=== PATIENT | male | born 1990 | race Two or more races ===

== ENCOUNTER 2018-06-28 11:24 | Emergency (ER) | payer OTHER ==
[~2018-06-28] VITALS: Ht 167.6 cm; Wt 72.7 kg
[2018-06-28] MEDS ORDERED: CEPH500 PO (12:05)
[2018-06-28] MEDS ORDERED: HALO1 PO (12:05)
[2018-06-28 13:44] VITALS: BP 118/70
== END 2018-06-28 13:46 | disposition home or self-care (01) ==
LOC: EMS 11:25
DX: F20.9 Schizophrenia, unspecified (principal); F31.9 Bipolar disorder, unspecified; F41.9 Anxiety disorder, unspecified; F15.90 Other stimulant use, unspecified, uncomplicated; F17.210 Nicotine dependence, cigarettes, uncomplicated; Z76.0 Encounter for issue of repeat prescription

== ENCOUNTER 2018-08-06 13:49 | Inpatient (IN) | payer MEDICAID ==
[~2018-08-06] VITALS: Ht 167.6 cm; Wt 66.7 kg
[~2018-08-06 13:49] MED LIST: CEPH500 PO; HALO1 PO
[2018-08-06 14:16] VITALS: BP 121/63
[2018-08-06] MEDS ORDERED: ZOLPIDEM TARTRATE 10 MG TABLET PO PRN (14:45)
[2018-08-06] MEDS ORDERED: OLAN10TA3 PO (15:06)
[2018-08-06] MEDS ORDERED: HALO5TAB2 PO (15:06)
[2018-08-06 17:02] VITALS: BP 113/73
[2018-08-06] MEDS ORDERED: ACETAMINOPHEN 325 MG TABLET PO PRN (21:15)
[2018-08-06] MEDS ORDERED: MAGNESIUM HYDROXIDE SUSPENSION 30 ML UDCUP PO PRN (21:15)
[2018-08-06] MEDS ORDERED: CloNIDine HCL 0.1 MG TABLET PO PRN (21:15)
[2018-08-06] MEDS ORDERED: PETROLATUM,WHITE 71 GM JELLY TP PRN (21:15)
[2018-08-06] MEDS ORDERED: NICOTINE 14 MG/24 HOUR PATCH TD PRN (21:15)
[2018-08-06] MEDS ORDERED: ONDANSETRON HCL 4 MG TABLET PO PRN (21:15)
[2018-08-06] MEDS ORDERED: LOPERAMIDE HCL 2 MG CAPSULE PO PRN (21:15)
[2018-08-06] MEDS ORDERED: IBUPROFEN 400 MG TABLET PO PRN (21:15)
[2018-08-06] MEDS ORDERED: MAG HYDROX/AL HYDROX/SIMETH ES 30 ML SUSPENSION UDCUP PO PRN (21:15)
[2018-08-06] MEDS ORDERED: GuaiFENesin/D-METHORPHAN [SUGAR-FREE] 200-20MG/10 ML SYRUP UDCUP PO PRN (21:15)
[2018-08-06] MEDS ORDERED: DOCUSATE SODIUM 100 MG CAPSULE PO PRN (21:15)
[2018-08-06] MEDS ORDERED: ALBUTEROL SULFATE HFA 90 MCG/PUFF 8 GM INHALER IH PRN (21:15)
[2018-08-07 06:54] VITALS: BP 114/74
[2018-08-07 07:22] LABS: BASOPHILS % (AUTO) 0.4 % (0.0-2.0); EOSINOPHILS % (AUTO) 2.1 % (1.0-6.0); HEMATOCRIT 37.9 % (41-53); HEMOGLOBIN 13.4 g/dL (13.5-17.5); LYMPHOCYTES # (AUTO) 1.5 K/uL (1.0-4.8); LYMPHOCYTES % (AUTO) 22.4 % (22.0-44.0); MEAN CORPUSCULAR HEMOGLOBIN 31.1 pg (26.0-34.0); MEAN CORPUSCULAR HGB CONC 35.3 G/dL (31.0-37.0); MEAN CORPUSCULAR VOLUME 88 fL (80-100); MONOCYTES # (AUTO) 0.6 K/uL (0.1-1.0); MONOCYTES % (AUTO) 8.2 % (2.0-9.0); NEUTROPHILS # (AUTO) 4.6 K/uL (1.8-7.7); NEUTROPHILS % (AUTO) 66.9 % (40.0-70.0); PLATELET COUNT (AUTO) 224 K/uL (150-450); RED BLOOD CELL COUNT(AUTO) 4.29 MIL/uL (4.50-5.90); RED CELL DISTRIBUTION WIDTH 13.9 % (11.5-14.5)
[2018-08-07 07:54] LABS: HEMOGLOBIN A1C 5.2 % (4.5-6.2)
[2018-08-07 08:06] LABS: ALANINE AMINOTRANSFERASE 21 U/L (12-78); ALBUMIN 3.5 g/dL (3.4-5.0); ALKALINE PHOSPHATASE 84 U/L (46-116); ANION GAP 5 mmol/L (8-16); ASPARTATE AMINOTRANSFERASE 14 U/L (15-37); CALCIUM, TOTAL 8.6 mg/dL (8.8-10.5); CARBON DIOXIDE 30 mmol/L (22-29); CHLORIDE 104 mmol/L (98-107); CHOL/HDL RATIO 2.9 (4.2-7.3); CHOLESTEROL 145 mg/dL (131-200); CREATININE 0.84 mg/dL (0.60-1.30); FREE T4 (FREE THYROXINE) 0.88 ng/dL (0.76-1.46); GLOMERULAR FILTR. RATE CALC > 60 mL/min (>60); GLUCOSE,RANDOM 92 mg/dL (70-110); HDL CHOLESTEROL 50 mg/dL (40-60); LDL CHOL (CALC.) 78 mg/dL (0-130); POTASSIUM 4.8 mmol/L (3.5-5.1); SODIUM SERUM 139 mmol/L (136-145); THYROID STIMULATING HORMONE 1.18 uIU/mL (0.36-3.74); TOTAL PROTEIN, SERUM 6.7 g/dL (6.4-8.2); TRIGLYCERIDES 87 mg/dL (15-150); UREA NITROGEN, BLOOD 16 mg/dL (7-18)
[2018-08-07 08:23] VITALS: BP 113/65
[2018-08-07] MEDS: LORazepam 2 MG TABLET PO PRN (09:00)
[2018-08-07] MEDS: HALOPERIDOL 5 MG TABLET PO PRN (09:00)
[2018-08-07] MEDS: BACITRACIN 28.4 GM OINTMENT TP SCH ×2 (09:22→17:14)
[2018-08-07 09:35] LABS: AMPHET/METH SCREEN,URINE POSITIVE (NEGATIVE); BARBITURATE SCREEN, URINE NEGATIVE (NEGATIVE); BENZODIAZEPINES SCREEN,URINE NEGATIVE (NEGATIVE); CANNABINOID SCREEN,URINE POSITIVE (NEGATIVE); COCAINE SCREEN,URINE NEGATIVE (NEGATIVE); METHADONE SCREEN, URINE NEGATIVE (NEGATIVE); OPIATE SCREEN,URINE NEGATIVE (NEGATIVE)
[2018-08-07 09:37] LABS: PHENCYCLIDINE SCREEN,URINE NEGATIVE (NEGATIVE)
[2018-08-07 09:38] LABS: BILIRUBIN,URINE NEGATIVE (NEGATIVE); GLUCOSE, URINE (UA) NEGATIVE (NEGATIVE); KETONES,URINE NEGATIVE (NEGATIVE); LEUKOCYTE ESTERASE ,URINE NEGATIVE (NEGATIVE); NITRATE,URINE NEGATIVE (NEGATIVE); OCCULT BLOOD,URINE NEGATIVE (NEGATIVE); PROTEIN,URINE NEGATIVE (NEGATIVE)
[2018-08-07 09:58] LABS: APPEARANCE,URINE HAZY (CLEAR)
[2018-08-07] MEDS ORDERED: HALO10 PO (11:12)
[2018-08-07] MEDS: HALOPERIDOL 5 MG TABLET PO SCH (11:41)
[2018-08-07 16:06] VITALS: BP 113/68
[2018-08-07] MEDS: HALOPERIDOL 10 MG TABLET PO SCH (21:00)
[2018-08-08 02:00] VITALS: BP 118/74
[2018-08-08] MEDS: BACITRACIN 28.4 GM OINTMENT TP SCH ×2 (08:43→16:42)
[2018-08-08] MEDS: HALOPERIDOL 5 MG TABLET PO SCH (08:43)
[2018-08-08 08:50] VITALS: BP 126/74
[2018-08-08 16:01] VITALS: BP 128/71
[2018-08-08] MEDS: HALOPERIDOL 5 MG TABLET PO PRN (17:02)
[2018-08-08] MEDS: LORazepam 2 MG TABLET PO PRN (17:02)
[2018-08-08] MEDS: HALOPERIDOL 10 MG TABLET PO SCH (20:22)
[2018-08-09 00:10] VITALS: BP 100/60
[2018-08-09 08:25] VITALS: BP 111/67
[2018-08-09] MEDS: BACITRACIN 28.4 GM OINTMENT TP SCH ×2 (08:28→16:06)
[2018-08-09] MEDS: HALOPERIDOL 5 MG TABLET PO SCH (08:29)
[2018-08-09] MEDS: SERTRALINE HCL 50 MG TABLET PO SCH (14:21)
[2018-08-09 16:05] VITALS: BP 100/68
[2018-08-09] MEDS: HALOPERIDOL 10 MG TABLET PO SCH (20:17)
[2018-08-10 02:18] VITALS: BP 106/74
[2018-08-10] MEDS: SERTRALINE HCL 50 MG TABLET PO SCH (08:17)
[2018-08-10] MEDS: HALOPERIDOL 5 MG TABLET PO SCH (08:17)
[2018-08-10] MEDS: BACITRACIN 28.4 GM OINTMENT TP SCH (08:20)
[2018-08-10 08:26] VITALS: BP 110/52
[2018-08-10] MEDS ORDERED: HALO5TAB2 PO (11:55)
[2018-08-10] MEDS ORDERED: HALO10 PO (11:55)
[2018-08-10] MEDS ORDERED: SERT50TA12 PO (11:55)
== END 2018-08-10 12:45 | disposition home or self-care (01) | DRG 750 ==
LOC: B2S 14:45
DX: F20.0 Paranoid schizophrenia (principal); D64.9 Anemia, unspecified; F17.200 Nicotine dependence, unspecified, uncomplicated; F19.10 Other psychoactive substance abuse, uncomplicated; F15.10 Other stimulant abuse, uncomplicated; F12.10 Cannabis abuse, uncomplicated; X78.9XXA Intentional self-harm by unspecified sharp object, initial encounter; G47.00 Insomnia, unspecified; Z91.5 Personal history of self-harm; Z71.6 Tobacco abuse counseling; Z79.899 Other long term (current) drug therapy; Z71.51 Drug abuse counseling and surveillance of drug abuser; Y93.89 Activity, other specified; Y92.89 Other specified places as the place of occurrence of the external cause; Y99.8 Other external cause status
CPT/HCPCS: 80307; 83036; 84439; 84443

== ENCOUNTER 2018-09-27 20:56 | Inpatient (IN) | payer MEDICAID ==
[~2018-09-27] VITALS: Ht 170.2 cm; Wt 67.1 kg
[~2018-09-27 20:56] MED LIST changes: -CEPH500 PO; -HALO1 PO; +OLAN10TA3 PO; +SERT50TA12 PO
[2018-09-28] MEDS ORDERED: HALOPERIDOL 5 MG TABLET PO PRN
[2018-09-28 01:47] VITALS: BP 135/85
[2018-09-28] MEDS ORDERED: ONDANSETRON HCL 4 MG TABLET PO PRN (06:45)
[2018-09-28] MEDS ORDERED: LOPERAMIDE HCL 2 MG CAPSULE PO PRN (06:45)
[2018-09-28] MEDS ORDERED: ALBUTEROL SULFATE HFA 90 MCG/PUFF 8 GM INHALER IH PRN (06:45)
[2018-09-28] MEDS ORDERED: PETROLATUM,WHITE 71 GM JELLY TP PRN (06:45)
[2018-09-28] MEDS ORDERED: GuaiFENesin/D-METHORPHAN [SUGAR-FREE] 200-20MG/10 ML SYRUP UDCUP PO PRN (06:45)
[2018-09-28] MEDS ORDERED: MAG HYDROX/AL HYDROX/SIMETH ES 30 ML SUSPENSION UDCUP PO PRN (06:45)
[2018-09-28] MEDS ORDERED: CloNIDine HCL 0.1 MG TABLET PO PRN (06:45)
[2018-09-28] MEDS ORDERED: NICOTINE 14 MG/24 HOUR PATCH TD PRN (06:45)
[2018-09-28] MEDS ORDERED: MAGNESIUM HYDROXIDE SUSPENSION 30 ML UDCUP PO PRN (06:45)
[2018-09-28] MEDS ORDERED: DOCUSATE SODIUM 100 MG CAPSULE PO PRN (06:45)
[2018-09-28] MEDS ORDERED: ACETAMINOPHEN 325 MG TABLET PO PRN (06:45)
[2018-09-28] MEDS ORDERED: IBUPROFEN 400 MG TABLET PO PRN (06:45)
[2018-09-28 07:27] LABS: BASOPHILS % (AUTO) 0.6 % (0.0-2.0); EOSINOPHILS % (AUTO) 1.8 % (1.0-6.0); HEMATOCRIT 39.5 % (41-53); HEMOGLOBIN 13.9 g/dL (13.5-17.5); LYMPHOCYTES # (AUTO) 2.4 K/uL (1.0-4.8); LYMPHOCYTES % (AUTO) 24.8 % (22.0-44.0); MEAN CORPUSCULAR HEMOGLOBIN 30.9 pg (26.0-34.0); MEAN CORPUSCULAR HGB CONC 35.1 G/dL (31.0-37.0); MEAN CORPUSCULAR VOLUME 88 fL (80-100); MONOCYTES # (AUTO) 1.3 K/uL (0.1-1.0); MONOCYTES % (AUTO) 13.4 % (2.0-9.0); NEUTROPHILS # (AUTO) 5.7 K/uL (1.8-7.7); NEUTROPHILS % (AUTO) 59.4 % (40.0-70.0); PLATELET COUNT (AUTO) 294 K/uL (150-450); RED BLOOD CELL COUNT(AUTO) 4.49 MIL/uL (4.50-5.90); RED CELL DISTRIBUTION WIDTH 13.9 % (11.5-14.5)
[2018-09-28 08:04] VITALS: BP 105/59
[2018-09-28 08:14] LABS: HEMOGLOBIN A1C 5.3 % (4.5-6.2)
[2018-09-28 08:15] LABS: ALANINE AMINOTRANSFERASE 31 U/L (12-78); ALBUMIN 3.8 g/dL (3.4-5.0); ALKALINE PHOSPHATASE 97 U/L (46-116); ANION GAP 8 mmol/L (8-16); ASPARTATE AMINOTRANSFERASE 21 U/L (15-37); CARBON DIOXIDE 30 mmol/L (22-29); CHLORIDE 102 mmol/L (98-107); CHOL/HDL RATIO 2.7 (4.2-7.3); CHOLESTEROL 172 mg/dL (131-200); CREATININE 1.05 mg/dL (0.60-1.30); FREE T4 (FREE THYROXINE) 1.12 ng/dL (0.76-1.46); GLOMERULAR FILTR. RATE CALC > 60 mL/min (>60); GLUCOSE,RANDOM 69 mg/dL (70-110); HDL CHOLESTEROL 64 mg/dL (40-60); LDL CHOL (CALC.) 97 mg/dL (0-130); POTASSIUM 3.9 mmol/L (3.5-5.1); SODIUM SERUM 140 mmol/L (136-145); THYROID STIMULATING HORMONE 5.28 uIU/mL (0.36-3.74); TOTAL PROTEIN, SERUM 7.5 g/dL (6.4-8.2); TRIGLYCERIDES 56 mg/dL (15-150); UREA NITROGEN, BLOOD 22 mg/dL (7-18)
[2018-09-28 08:25] LABS: BILIRUBIN,TOTAL 1.2 mg/dL (0.1-1.0)
[2018-09-28] MEDS: SERTRALINE HCL 50 MG TABLET PO SCH (12:26)
[2018-09-28] MEDS: LORazepam 2 MG TABLET PO PRN ×2 (12:26→16:56)
[2018-09-28] MEDS: OLANZapine 10 MG TABLET PO SCH ×2 (12:26→20:36)
[2018-09-28 16:11] VITALS: BP 116/68
[2018-09-28] MEDS: ZOLPIDEM TARTRATE 10 MG TABLET PO PRN (20:36)
[2018-09-29 00:15] VITALS: BP 112/82
[2018-09-29 08:08] VITALS: BP 105/57
[2018-09-29 08:31] LABS: BASOPHILS % (AUTO) 0.8 % (0.0-2.0); EOSINOPHILS % (AUTO) 2.6 % (1.0-6.0); HEMATOCRIT 37.6 % (41-53); HEMOGLOBIN 12.8 g/dL (13.5-17.5); LYMPHOCYTES # (AUTO) 1.7 K/uL (1.0-4.8); LYMPHOCYTES % (AUTO) 25.4 % (22.0-44.0); MEAN CORPUSCULAR HEMOGLOBIN 30.6 pg (26.0-34.0); MEAN CORPUSCULAR HGB CONC 34.1 G/dL (31.0-37.0); MEAN CORPUSCULAR VOLUME 90 fL (80-100); MONOCYTES # (AUTO) 0.6 K/uL (0.1-1.0); MONOCYTES % (AUTO) 9.2 % (2.0-9.0); NEUTROPHILS # (AUTO) 4.2 K/uL (1.8-7.7); PLATELET COUNT (AUTO) 229 K/uL (150-450); RED BLOOD CELL COUNT(AUTO) 4.19 MIL/uL (4.50-5.90); RED CELL DISTRIBUTION WIDTH 13.7 % (11.5-14.5)
[2018-09-29] MEDS: SERTRALINE HCL 50 MG TABLET PO SCH (08:33)
[2018-09-29] MEDS: OLANZapine 10 MG TABLET PO SCH ×2 (08:33→20:37)
[2018-09-29 08:52] LABS: ALANINE AMINOTRANSFERASE 28 U/L (12-78); ALBUMIN 3.3 g/dL (3.4-5.0); ALKALINE PHOSPHATASE 75 U/L (46-116); ANION GAP 7 mmol/L (8-16); ASPARTATE AMINOTRANSFERASE 14 U/L (15-37); BILIRUBIN,TOTAL 0.5 mg/dL (0.1-1.0); CALCIUM, TOTAL 8.8 mg/dL (8.8-10.5); CARBON DIOXIDE 29 mmol/L (22-29); CHLORIDE 107 mmol/L (98-107); CHOL/HDL RATIO 3.1 (4.2-7.3); CHOLESTEROL 154 mg/dL (131-200); CREATININE 0.83 mg/dL (0.60-1.30); GLOMERULAR FILTR. RATE CALC > 60 mL/min (>60); GLUCOSE,RANDOM 82 mg/dL (70-110); HDL CHOLESTEROL 50 mg/dL (40-60); LDL CHOL (CALC.) 91 mg/dL (0-130); POTASSIUM 4.5 mmol/L (3.5-5.1); SODIUM SERUM 143 mmol/L (136-145); THYROID STIMULATING HORMONE 1.98 uIU/mL (0.36-3.74); TOTAL PROTEIN, SERUM 6.7 g/dL (6.4-8.2); TRIGLYCERIDES 64 mg/dL (15-150); UREA NITROGEN, BLOOD 20 mg/dL (7-18)
[2018-09-29 16:07] VITALS: BP 109/62
[2018-09-29] MEDS: LORazepam 2 MG TABLET PO PRN (16:27)
[2018-09-29 16:38] LABS: HEMOGLOBIN A1C 5.3 % (4.5-6.2)
[2018-09-29] MEDS: ZOLPIDEM TARTRATE 10 MG TABLET PO PRN (20:38)
[2018-09-30 06:55] VITALS: BP 116/72
[2018-09-30 08:46] VITALS: BP 108/61
[2018-09-30] MEDS: SERTRALINE HCL 50 MG TABLET PO SCH (09:53)
[2018-09-30] MEDS: OLANZapine 10 MG TABLET PO SCH ×2 (09:53→20:30)
[2018-09-30 16:10] VITALS: BP 105/68
[2018-09-30] MEDS: LORazepam 2 MG TABLET PO PRN (16:37)
[2018-10-01] MEDS: LORazepam 2 MG TABLET PO PRN ×2 (00:05→18:00)
[2018-10-01] MEDS: ZOLPIDEM TARTRATE 10 MG TABLET PO PRN (00:05)
[2018-10-01 00:06] VITALS: BP 108/65
[2018-10-01 08:29] VITALS: BP 101/63
[2018-10-01] MEDS: SERTRALINE HCL 50 MG TABLET PO SCH (09:14)
[2018-10-01] MEDS: OLANZapine 10 MG TABLET PO SCH ×2 (09:14→20:15)
[2018-10-01 16:00] VITALS: BP 108/66
[2018-10-02 03:43] VITALS: BP 112/76
[2018-10-02] MEDS: OLANZapine 10 MG TABLET PO SCH ×2 (08:18→20:08)
[2018-10-02] MEDS: SERTRALINE HCL 50 MG TABLET PO SCH (08:18)
[2018-10-02 08:36] VITALS: BP 127/87
[2018-10-02 16:04] VITALS: BP 111/64
[2018-10-03 02:53] VITALS: BP 124/86
[2018-10-03] MEDS: SERTRALINE HCL 50 MG TABLET PO SCH (08:11)
[2018-10-03] MEDS: OLANZapine 10 MG TABLET PO SCH ×2 (08:12→20:32)
[2018-10-03 08:15] VITALS: BP 121/64
[2018-10-03 16:20] VITALS: BP 130/66
[2018-10-03] MEDS: LORazepam 2 MG TABLET PO PRN (16:32)
[2018-10-04 01:40] VITALS: BP 122/88
[2018-10-04] MEDS: OLANZapine 10 MG TABLET PO SCH ×2 (08:09→21:03)
[2018-10-04] MEDS: SERTRALINE HCL 50 MG TABLET PO SCH (08:09)
[2018-10-04 08:18] VITALS: BP 110/63
[2018-10-04 16:00] VITALS: BP 106/73
[2018-10-04] MEDS: LORazepam 2 MG TABLET PO PRN (17:04)
[2018-10-05 05:06] VITALS: BP 111/78
[2018-10-05 08:03] VITALS: BP 102/62
[2018-10-05] MEDS: SERTRALINE HCL 50 MG TABLET PO SCH (08:19)
[2018-10-05] MEDS: OLANZapine 10 MG TABLET PO SCH ×2 (08:19→20:14)
[2018-10-05 16:08] VITALS: BP 108/62
[2018-10-05] MEDS: LORazepam 2 MG TABLET PO PRN (16:26)
[2018-10-05] MEDS: ZOLPIDEM TARTRATE 10 MG TABLET PO PRN (20:14)
[2018-10-06 04:12] VITALS: BP 110/70
[2018-10-06 08:36] VITALS: BP 104/53
[2018-10-06] MEDS: OLANZapine 10 MG TABLET PO SCH ×2 (08:44→19:59)
[2018-10-06] MEDS: SERTRALINE HCL 50 MG TABLET PO SCH (08:44)
[2018-10-06 13:24] VITALS: BP 110/82
[2018-10-06 16:11] VITALS: BP 112/72
[2018-10-06] MEDS: LORazepam 2 MG TABLET PO PRN (17:15)
[2018-10-06] MEDS: ZOLPIDEM TARTRATE 10 MG TABLET PO PRN (19:59)
[2018-10-07 05:09] VITALS: BP 115/75
[2018-10-07 08:22] VITALS: BP 103/60
[2018-10-07] MEDS ORDERED: SERT50TA12 PO (09:24)
[2018-10-07] MEDS ORDERED: OLAN10TA20 PO (09:24)
[2018-10-07] MEDS: OLANZapine 10 MG TABLET PO SCH (10:22)
[2018-10-07] MEDS: SERTRALINE HCL 50 MG TABLET PO SCH (10:23)
== END 2018-10-07 12:10 | disposition home or self-care (01) | DRG 750 ==
LOC: B3A 23:56 → B2S 10-05 21:00
DX: F25.1 Schizoaffective disorder, depressive type (principal); F15.10 Other stimulant abuse, uncomplicated; F17.200 Nicotine dependence, unspecified, uncomplicated; F32.9 Major depressive disorder, single episode, unspecified; F41.9 Anxiety disorder, unspecified; W45.8XXA Other foreign body or object entering through skin, initial encounter; G47.00 Insomnia, unspecified; T14.8XXA Other injury of unspecified body region, initial encounter; Z79.899 Other long term (current) drug therapy; Z91.5 Personal history of self-harm; Y93.89 Activity, other specified; Y92.89 Other specified places as the place of occurrence of the external cause; Y99.8 Other external cause status; Z71.51 Drug abuse counseling and surveillance of drug abuser; Z71.6 Tobacco abuse counseling
CPT/HCPCS: 83036; 84439; 84443; 87081

== ENCOUNTER 2018-10-12 18:41 | Inpatient (IN) | payer MEDICAID ==
[~2018-10-12] VITALS: Ht 170.2 cm; Wt 68.9 kg
[~2018-10-12 18:41] MED LIST changes: +OLAN10TA20 PO
[2018-10-12] MEDS ORDERED: ZOLPIDEM TARTRATE 10 MG TABLET PO PRN (19:00)
[2018-10-12] MEDS ORDERED: LORazepam 2 MG TABLET PO PRN (19:00)
[2018-10-12] MEDS ORDERED: HALOPERIDOL 5 MG TABLET PO PRN (19:00)
[2018-10-12 19:03] VITALS: BP 100/62
[2018-10-12] MEDS ORDERED: -PHARMACY VACCINE NOTE- MISC ONE (19:30)
[2018-10-12 19:35] VITALS: BP 102/86
[2018-10-12] MEDS ORDERED: MAG HYDROX/AL HYDROX/SIMETH ES 30 ML SUSPENSION UDCUP PO PRN (21:45)
[2018-10-12] MEDS ORDERED: IBUPROFEN 400 MG TABLET PO PRN (21:45)
[2018-10-12] MEDS ORDERED: DOCUSATE SODIUM 100 MG CAPSULE PO PRN (21:45)
[2018-10-12] MEDS ORDERED: GuaiFENesin/D-METHORPHAN [SUGAR-FREE] 200-20MG/10 ML SYRUP UDCUP PO PRN (21:45)
[2018-10-12] MEDS ORDERED: PETROLATUM,WHITE 71 GM JELLY TP PRN (21:45)
[2018-10-12] MEDS ORDERED: ACETAMINOPHEN 325 MG TABLET PO PRN (21:45)
[2018-10-12] MEDS ORDERED: MAGNESIUM HYDROXIDE SUSPENSION 30 ML UDCUP PO PRN (21:45)
[2018-10-12] MEDS ORDERED: LOPERAMIDE HCL 2 MG CAPSULE PO PRN (21:45)
[2018-10-12] MEDS ORDERED: CloNIDine HCL 0.1 MG TABLET PO PRN (21:45)
[2018-10-12] MEDS ORDERED: ONDANSETRON HCL 4 MG TABLET PO PRN (21:45)
[2018-10-13 00:55] VITALS: BP 110/67
[2018-10-13 08:14] LABS: BASOPHILS % (AUTO) 0.8 % (0.0-2.0); EOSINOPHILS % (AUTO) 5.2 % (1.0-6.0); HEMATOCRIT 35.4 % (41-53); HEMOGLOBIN 12.1 g/dL (13.5-17.5); LYMPHOCYTES # (AUTO) 1.3 K/uL (1.0-4.8); LYMPHOCYTES % (AUTO) 21.8 % (22.0-44.0); MEAN CORPUSCULAR HEMOGLOBIN 29.9 pg (26.0-34.0); MEAN CORPUSCULAR HGB CONC 34.1 G/dL (31.0-37.0); MEAN CORPUSCULAR VOLUME 88 fL (80-100); MONOCYTES # (AUTO) 0.7 K/uL (0.1-1.0); MONOCYTES % (AUTO) 11.8 % (2.0-9.0); NEUTROPHILS # (AUTO) 3.7 K/uL (1.8-7.7); NEUTROPHILS % (AUTO) 60.4 % (40.0-70.0); PLATELET COUNT (AUTO) 232 K/uL (150-450); RED BLOOD CELL COUNT(AUTO) 4.03 MIL/uL (4.50-5.90); RED CELL DISTRIBUTION WIDTH 13.6 % (11.5-14.5)
[2018-10-13 08:31] LABS: HEMOGLOBIN A1C 5.3 % (4.5-6.2)
[2018-10-13 08:44] LABS: ALANINE AMINOTRANSFERASE 18 U/L (12-78); ALBUMIN 3.2 g/dL (3.4-5.0); ALKALINE PHOSPHATASE 79 U/L (46-116); ANION GAP 8 mmol/L (8-16); ASPARTATE AMINOTRANSFERASE 14 U/L (15-37); BILIRUBIN,TOTAL 0.9 mg/dL (0.1-1.0); CALCIUM, TOTAL 8.5 mg/dL (8.8-10.5); CARBON DIOXIDE 25 mmol/L (22-29); CHLORIDE 102 mmol/L (98-107); CHOLESTEROL 138 mg/dL (131-200); CREATININE 0.78 mg/dL (0.60-1.30); GLOMERULAR FILTR. RATE CALC > 60 mL/min (>60); GLUCOSE,RANDOM 82 mg/dL (70-110); HDL CHOLESTEROL 46 mg/dL (40-60); LDL CHOL (CALC.) 81 mg/dL (0-130); POTASSIUM 3.7 mmol/L (3.5-5.1); SODIUM SERUM 135 mmol/L (136-145); THYROID STIMULATING HORMONE 1.31 uIU/mL (0.36-3.74); TOTAL PROTEIN, SERUM 6.7 g/dL (6.4-8.2); TRIGLYCERIDES 53 mg/dL (15-150); UREA NITROGEN, BLOOD 11 mg/dL (7-18)
[2018-10-13 09:12] VITALS: BP 106/62
[2018-10-13] MEDS: BACITRACIN 28.4 GM OINTMENT TP SCH (10:06)
[2018-10-13 16:47] VITALS: BP 105/62
[2018-10-13] MEDS: OLANZapine 10 MG TABLET PO SCH (20:14)
[2018-10-14 01:02] VITALS: BP 110/68
[2018-10-14] MEDS: SERTRALINE HCL 50 MG TABLET PO SCH (08:02)
[2018-10-14] MEDS: OLANZapine 10 MG TABLET PO SCH ×2 (08:03→20:15)
[2018-10-14] MEDS: BACITRACIN 28.4 GM OINTMENT TP SCH (08:03)
[2018-10-14 08:35] VITALS: BP 102/69
[2018-10-14 16:09] VITALS: BP 108/70
[2018-10-15 01:37] VITALS: BP 110/62
[2018-10-15 08:53] VITALS: BP 111/60
[2018-10-15] MEDS: SERTRALINE HCL 50 MG TABLET PO SCH (09:24)
[2018-10-15] MEDS: OLANZapine 10 MG TABLET PO SCH ×2 (09:24→20:58)
[2018-10-15] MEDS: BACITRACIN 28.4 GM OINTMENT TP SCH (09:24)
[2018-10-15 22:10] VITALS: BP 115/68
[2018-10-16 00:21] VITALS: BP 118/70
[2018-10-16 08:16] VITALS: BP 118/76
[2018-10-16] MEDS: OLANZapine 10 MG TABLET PO SCH ×2 (08:27→20:30)
[2018-10-16] MEDS: SERTRALINE HCL 50 MG TABLET PO SCH (08:27)
[2018-10-16] MEDS: BACITRACIN 28.4 GM OINTMENT TP SCH (08:28)
[2018-10-16 16:13] VITALS: BP 116/52
[2018-10-17 00:03] VITALS: BP 110/68
[2018-10-17 08:22] VITALS: BP 118/63
[2018-10-17] MEDS: OLANZapine 10 MG TABLET PO SCH ×2 (08:37→20:15)
[2018-10-17] MEDS: SERTRALINE HCL 50 MG TABLET PO SCH (08:37)
[2018-10-17] MEDS: BACITRACIN 28.4 GM OINTMENT TP SCH (08:38)
[2018-10-17 16:52] VITALS: BP 103/63
[2018-10-18 01:00] VITALS: BP 105/63
[2018-10-18 08:27] VITALS: BP 103/69
[2018-10-18] MEDS: SERTRALINE HCL 50 MG TABLET PO SCH (08:42)
[2018-10-18] MEDS: OLANZapine 10 MG TABLET PO SCH ×2 (08:42→20:23)
[2018-10-18] MEDS: BACITRACIN 28.4 GM OINTMENT TP SCH (08:43)
[2018-10-18 16:23] VITALS: BP 110/66
[2018-10-19 02:34] VITALS: BP 111/67
[2018-10-19] MEDS: FERROUS SULFATE 325 MG EC TABLET PO SCH (06:32)
[2018-10-19] MEDS: SERTRALINE HCL 50 MG TABLET PO SCH (08:16)
[2018-10-19] MEDS: OLANZapine 10 MG TABLET PO SCH ×2 (08:18→20:12)
[2018-10-19 08:24] VITALS: BP 100/74
[2018-10-19] MEDS: BACITRACIN 28.4 GM OINTMENT TP SCH (11:12)
[2018-10-19 16:03] VITALS: BP 106/76
[2018-10-20 01:27] VITALS: BP 104/63
[2018-10-20] MEDS: FERROUS SULFATE 325 MG EC TABLET PO SCH (07:02)
[2018-10-20 08:14] VITALS: BP 115/75
[2018-10-20] MEDS: BACITRACIN 28.4 GM OINTMENT TP SCH (09:20)
[2018-10-20] MEDS: SERTRALINE HCL 50 MG TABLET PO SCH (09:20)
[2018-10-20] MEDS: OLANZapine 10 MG TABLET PO SCH (09:20)
[2018-10-20] MEDS ORDERED: FERR-89 PO (12:48)
[2018-10-20 16:12] VITALS: BP 106/53
== END 2018-10-20 16:45 | disposition home or self-care (01) | DRG 750 ==
LOC: B2S 19:02
DX: F25.1 Schizoaffective disorder, depressive type (principal); E87.1 Hypo-osmolality and hyponatremia; F15.20 Other stimulant dependence, uncomplicated; D64.9 Anemia, unspecified; G47.00 Insomnia, unspecified; F41.9 Anxiety disorder, unspecified; Z59.0 Homelessness; Z79.899 Other long term (current) drug therapy; Z91.5 Personal history of self-harm
CPT/HCPCS: 83036; 84439; 84443; 87081

== ENCOUNTER 2018-10-28 19:27 | Inpatient (IN) | payer MEDICAID ==
[~2018-10-28] VITALS: Ht 167.6 cm; Wt 71.1 kg
[~2018-10-28 19:27] MED LIST changes: +FERR-89 PO; -OLAN10TA3 PO
[2018-10-28 19:57] VITALS: BP 114/71
[2018-10-28] MEDS ORDERED: HALOPERIDOL 5 MG TABLET PO PRN (20:00)
[2018-10-28] MEDS ORDERED: ZOLPIDEM TARTRATE 10 MG TABLET PO PRN (20:00)
[2018-10-28] MEDS ORDERED: LORazepam 2 MG TABLET PO PRN (20:00)
[2018-10-28 21:09] VITALS: BP 106/62
[2018-10-29] MEDS ORDERED: DOCUSATE SODIUM 100 MG CAPSULE PO PRN (02:45)
[2018-10-29] MEDS ORDERED: LOPERAMIDE HCL 2 MG CAPSULE PO PRN (02:45)
[2018-10-29] MEDS ORDERED: ACETAMINOPHEN 325 MG TABLET PO PRN (02:45)
[2018-10-29] MEDS ORDERED: ONDANSETRON HCL 4 MG TABLET PO PRN (02:45)
[2018-10-29] MEDS ORDERED: GuaiFENesin/D-METHORPHAN [SUGAR-FREE] 200-20MG/10 ML SYRUP UDCUP PO PRN (02:45)
[2018-10-29] MEDS ORDERED: CloNIDine HCL 0.1 MG TABLET PO PRN (02:45)
[2018-10-29] MEDS ORDERED: PETROLATUM,WHITE 28 GM JELLY TP PRN (02:45)
[2018-10-29] MEDS ORDERED: MAGNESIUM HYDROXIDE SUSPENSION 30 ML UDCUP PO PRN (02:45)
[2018-10-29] MEDS ORDERED: NICOTINE 14 MG/24 HOUR PATCH TD PRN (02:45)
[2018-10-29] MEDS ORDERED: ALBUTEROL SULFATE HFA 90 MCG/PUFF 8 GM INHALER IH PRN (02:45)
[2018-10-29] MEDS ORDERED: IBUPROFEN 400 MG TABLET PO PRN (02:45)
[2018-10-29] MEDS ORDERED: MAG HYDROX/AL HYDROX/SIMETH ES 30 ML SUSPENSION UDCUP PO PRN (02:45)
[2018-10-29 06:42] LABS: BASOPHILS % (AUTO) 0.7 % (0.0-2.0); EOSINOPHILS % (AUTO) 5.5 % (1.0-6.0); HEMATOCRIT 35.7 % (41-53); HEMOGLOBIN 11.9 g/dL (13.5-17.5); LYMPHOCYTES # (AUTO) 1.9 K/uL (1.0-4.8); LYMPHOCYTES % (AUTO) 28.5 % (22.0-44.0); MEAN CORPUSCULAR HEMOGLOBIN 29.7 pg (26.0-34.0); MEAN CORPUSCULAR HGB CONC 33.3 G/dL (31.0-37.0); MEAN CORPUSCULAR VOLUME 89 fL (80-100); MONOCYTES # (AUTO) 0.7 K/uL (0.1-1.0); MONOCYTES % (AUTO) 10.1 % (2.0-9.0); NEUTROPHILS # (AUTO) 3.8 K/uL (1.8-7.7); NEUTROPHILS % (AUTO) 55.2 % (40.0-70.0); PLATELET COUNT (AUTO) 198 K/uL (150-450); RED BLOOD CELL COUNT(AUTO) 4.01 MIL/uL (4.50-5.90); RED CELL DISTRIBUTION WIDTH 14.5 % (11.5-14.5)
[2018-10-29 07:08] LABS: ALANINE AMINOTRANSFERASE 26 U/L (12-78); ALBUMIN 3.1 g/dL (3.4-5.0); ALKALINE PHOSPHATASE 72 U/L (46-116); ANION GAP 11 mmol/L (8-16); ASPARTATE AMINOTRANSFERASE 12 U/L (15-37); BILIRUBIN,TOTAL 0.5 mg/dL (0.1-1.0); CALCIUM, TOTAL 8.1 mg/dL (8.8-10.5); CARBON DIOXIDE 23 mmol/L (22-29); CHLORIDE 106 mmol/L (98-107); CHOL/HDL RATIO 3.5 (4.2-7.3); CHOLESTEROL 170 mg/dL (131-200); CREATININE 0.65 mg/dL (0.60-1.30); FREE T4 (FREE THYROXINE) 0.88 ng/dL (0.76-1.46); GLOMERULAR FILTR. RATE CALC > 60 mL/min (>60); GLUCOSE,RANDOM 99 mg/dL (70-110); HDL CHOLESTEROL 48 mg/dL (40-60); LDL CHOL (CALC.) 109 mg/dL (0-130); POTASSIUM 3.9 mmol/L (3.5-5.1); SODIUM SERUM 140 mmol/L (136-145); THYROID STIMULATING HORMONE 1.86 uIU/mL (0.36-3.74); TOTAL PROTEIN, SERUM 6.8 g/dL (6.4-8.2); TRIGLYCERIDES 64 mg/dL (15-150); UREA NITROGEN, BLOOD 17 mg/dL (7-18)
[2018-10-29 08:44] VITALS: BP 110/56
[2018-10-29 16:15] VITALS: BP 124/72
[2018-10-29] MEDS: OLANZapine 10 MG TABLET PO SCH (20:05)
[2018-10-30] MEDS: SERTRALINE HCL 50 MG TABLET PO SCH (09:45)
[2018-10-30] MEDS: OLANZapine 10 MG TABLET PO SCH ×2 (09:45→21:16)
[2018-10-30 12:23] VITALS: BP 132/74
[2018-10-30 16:18] VITALS: BP 115/74
[2018-10-31 01:36] VITALS: BP 92/52
[2018-10-31] MEDS: SERTRALINE HCL 50 MG TABLET PO SCH (09:09)
[2018-10-31] MEDS: OLANZapine 10 MG TABLET PO SCH ×2 (09:09→20:35)
[2018-10-31 16:17] VITALS: BP 119/73
[2018-11-01] MEDS: SERTRALINE HCL 50 MG TABLET PO SCH (09:11)
[2018-11-01] MEDS: OLANZapine 10 MG TABLET PO SCH ×2 (09:11→20:22)
[2018-11-01 13:44] VITALS: BP 118/18
[2018-11-01 17:43] VITALS: BP 100/60
[2018-11-02] MEDS: SERTRALINE HCL 50 MG TABLET PO SCH (08:42)
[2018-11-02] MEDS: OLANZapine 10 MG TABLET PO SCH ×2 (08:42→20:19)
[2018-11-02 08:53] VITALS: BP 115/59
[2018-11-02 19:00] VITALS: BP 110/80
[2018-11-03 00:30] VITALS: BP 96/40
[2018-11-03] MEDS: OLANZapine 10 MG TABLET PO SCH (08:23)
[2018-11-03] MEDS: SERTRALINE HCL 50 MG TABLET PO SCH (08:23)
[2018-11-03] MEDS ORDERED: SERT50TA12 PO (10:27)
[2018-11-03] MEDS ORDERED: OLAN10TA20 PO (10:27)
[2018-11-03 11:30] VITALS: BP 128/72
== END 2018-11-03 12:10 | disposition home or self-care (01) | DRG 750 ==
LOC: 3EI 19:55
DX: F25.1 Schizoaffective disorder, depressive type (principal); R45.851 Suicidal ideations; E83.51 Hypocalcemia; F12.10 Cannabis abuse, uncomplicated; F41.9 Anxiety disorder, unspecified; D64.9 Anemia, unspecified; F15.20 Other stimulant dependence, uncomplicated; Z59.0 Homelessness; Z91.5 Personal history of self-harm; Z79.899 Other long term (current) drug therapy; Z91.19 Patient's noncompliance with other medical treatment and regimen
CPT/HCPCS: 83036; 84439; 84443; 87081

== ENCOUNTER 2018-11-14 03:08 | Inpatient (IN) | payer MEDICAID ==
[~2018-11-14] VITALS: Ht 167.6 cm; Wt 70.0 kg
[~2018-11-14 03:08] MED LIST changes: -FERR-89 PO
[2018-11-15] MEDS ORDERED: LORazepam 1 MG TABLET PO PRN (03:00)
[2018-11-15] MEDS ORDERED: ZOLPIDEM TARTRATE 10 MG TABLET PO PRN (03:00)
[2018-11-15] MEDS ORDERED: OLANZapine 5 MG RAPDIS TABLET PO PRN (03:00)
[2018-11-15 03:15] VITALS: BP 127/74
[2018-11-15] MEDS ORDERED: ALBUTEROL SULFATE HFA 90 MCG/PUFF 8 GM INHALER IH PRN (04:00)
[2018-11-15] MEDS ORDERED: GuaiFENesin/D-METHORPHAN [SUGAR-FREE] 200-20MG/10 ML SYRUP UDCUP PO PRN (04:00)
[2018-11-15] MEDS ORDERED: PETROLATUM,WHITE 28 GM JELLY TP PRN (04:00)
[2018-11-15] MEDS ORDERED: MAGNESIUM HYDROXIDE SUSPENSION 30 ML UDCUP PO PRN (04:00)
[2018-11-15] MEDS ORDERED: LOPERAMIDE HCL 2 MG CAPSULE PO PRN (04:00)
[2018-11-15] MEDS ORDERED: ACETAMINOPHEN 325 MG TABLET PO PRN (04:00)
[2018-11-15] MEDS ORDERED: NICOTINE 14 MG/24 HOUR PATCH TD PRN (04:00)
[2018-11-15] MEDS ORDERED: IBUPROFEN 400 MG TABLET PO PRN (04:00)
[2018-11-15] MEDS ORDERED: ONDANSETRON HCL 4 MG TABLET PO PRN (04:00)
[2018-11-15] MEDS ORDERED: DOCUSATE SODIUM 100 MG CAPSULE PO PRN (04:00)
[2018-11-15] MEDS ORDERED: MAG HYDROX/AL HYDROX/SIMETH ES 30 ML SUSPENSION UDCUP PO PRN (04:00)
[2018-11-15] MEDS ORDERED: CloNIDine HCL 0.1 MG TABLET PO PRN (04:00)
[2018-11-15 08:08] VITALS: BP 100/61
[2018-11-15 08:30] LABS: BASOPHILS % (AUTO) 0.5 % (0.0-2.0); EOSINOPHILS % (AUTO) 4.4 % (1.0-6.0); HEMATOCRIT 38.1 % (41-53); HEMOGLOBIN 12.8 g/dL (13.5-17.5); LYMPHOCYTES # (AUTO) 2.3 K/uL (1.0-4.8); LYMPHOCYTES % (AUTO) 36.7 % (22.0-44.0); MEAN CORPUSCULAR HEMOGLOBIN 29.8 pg (26.0-34.0); MEAN CORPUSCULAR HGB CONC 33.5 G/dL (31.0-37.0); MEAN CORPUSCULAR VOLUME 89 fL (80-100); MONOCYTES # (AUTO) 0.7 K/uL (0.1-1.0); NEUTROPHILS % (AUTO) 47.4 % (40.0-70.0); PLATELET COUNT (AUTO) 251 K/uL (150-450); RED BLOOD CELL COUNT(AUTO) 4.28 MIL/uL (4.50-5.90); RED CELL DISTRIBUTION WIDTH 14.4 % (11.5-14.5)
[2018-11-15 08:39] LABS: ALANINE AMINOTRANSFERASE 14 U/L (12-78); ALBUMIN 3.6 g/dL (3.4-5.0); ALKALINE PHOSPHATASE 67 U/L (46-116); ANION GAP 10 mmol/L (8-16); ASPARTATE AMINOTRANSFERASE 9 U/L (15-37); BILIRUBIN,TOTAL 0.5 mg/dL (0.1-1.0); CALCIUM, TOTAL 8.9 mg/dL (8.8-10.5); CARBON DIOXIDE 25 mmol/L (22-29); CHLORIDE 103 mmol/L (98-107); CHOLESTEROL 118 mg/dL (131-200); CREATININE 0.75 mg/dL (0.60-1.30); GLOMERULAR FILTR. RATE CALC > 60 mL/min (>60); GLUCOSE,RANDOM 84 mg/dL (70-110); HDL CHOLESTEROL 40 mg/dL (40-60); LDL CHOL (CALC.) 61 mg/dL (0-130); SODIUM SERUM 138 mmol/L (136-145); THYROID STIMULATING HORMONE 3.07 uIU/mL (0.36-3.74); TRIGLYCERIDES 83 mg/dL (15-150); UREA NITROGEN, BLOOD 18 mg/dL (7-18)
[2018-11-15 09:32] LABS: AMPHET/METH SCREEN,URINE POSITIVE (NEGATIVE); BARBITURATE SCREEN, URINE NEGATIVE (NEGATIVE); BENZODIAZEPINES SCREEN,URINE NEGATIVE (NEGATIVE); CANNABINOID SCREEN,URINE POSITIVE (NEGATIVE); COCAINE SCREEN,URINE NEGATIVE (NEGATIVE); METHADONE SCREEN, URINE NEGATIVE (NEGATIVE); OPIATE SCREEN,URINE NEGATIVE (NEGATIVE)
[2018-11-15 09:38] LABS: PHENCYCLIDINE SCREEN,URINE NEGATIVE (NEGATIVE)
[2018-11-15 09:45] LABS: APPEARANCE,URINE TURBID (CLEAR); GLUCOSE, URINE (UA) NEGATIVE (NEGATIVE); KETONES,URINE NEGATIVE (NEGATIVE); LEUKOCYTE ESTERASE ,URINE NEGATIVE (NEGATIVE); NITRATE,URINE NEGATIVE (NEGATIVE); OCCULT BLOOD,URINE NEGATIVE (NEGATIVE); PROTEIN,URINE NEGATIVE (NEGATIVE)
[2018-11-15 09:50] LABS: BILIRUBIN,URINE PRELIM. POSITIVE (NEGATIVE)
[2018-11-15 10:00] LABS: AMORPHOUS SEDIMENT,UR Many /LPF (None Seen); BACTERIA,URINE None Seen /HPF (None Seen); CALCIUM OXALATE CRYSTALS,UR Moderate /LPF (None Seen); RBC,URINE 0-2 /HPF (0-2); WBC,URINE None Seen /HPF (0-5)
[2018-11-15] MEDS: SERTRALINE HCL 50 MG TABLET PO SCH (11:15)
[2018-11-15] MEDS: OLANZapine 10 MG TABLET PO SCH ×2 (11:15→20:38)
[2018-11-16 01:52] VITALS: BP 119/71
[2018-11-16] MEDS: SERTRALINE HCL 50 MG TABLET PO SCH (08:34)
[2018-11-16] MEDS: OLANZapine 10 MG TABLET PO SCH ×2 (08:34→20:25)
[2018-11-16 08:43] VITALS: BP 110/67
[2018-11-16 09:10] LABS: THYROID STIMULATING HORMONE 1.44 uIU/mL (0.36-3.74)
[2018-11-16 09:12] LABS: HEMOGLOBIN A1C 5.3 % (4.5-6.2)
[2018-11-16 16:03] VITALS: BP 104/57
[2018-11-17 06:50] VITALS: BP 102/63
[2018-11-17] MEDS: SERTRALINE HCL 50 MG TABLET PO SCH (08:11)
[2018-11-17] MEDS: OLANZapine 10 MG TABLET PO SCH ×2 (08:11→20:04)
[2018-11-17 08:44] VITALS: BP 129/62
[2018-11-17 16:26] VITALS: BP 117/60
[2018-11-18 04:35] VITALS: BP 119/61
[2018-11-18 08:10] VITALS: BP 114/65
[2018-11-18] MEDS: SERTRALINE HCL 50 MG TABLET PO SCH (09:33)
[2018-11-18] MEDS: OLANZapine 10 MG TABLET PO SCH ×2 (09:33→20:45)
[2018-11-18 16:07] VITALS: BP 115/66
[2018-11-19 06:04] VITALS: BP 105/64
[2018-11-19 08:16] VITALS: BP 111/69
[2018-11-19] MEDS: OLANZapine 10 MG TABLET PO SCH (08:34)
[2018-11-19] MEDS: SERTRALINE HCL 50 MG TABLET PO SCH (08:34)
[2018-11-19] MEDS ORDERED: OLAN10TA20 PO (11:31)
[2018-11-19] MEDS ORDERED: SERT50TA12 PO (11:31)
== END 2018-11-19 14:50 | disposition home or self-care (01) | DRG 750 ==
LOC: B3A 11-15 02:00
DX: F25.1 Schizoaffective disorder, depressive type (principal); F15.20 Other stimulant dependence, uncomplicated; R45.851 Suicidal ideations; D64.9 Anemia, unspecified; F12.10 Cannabis abuse, uncomplicated; F17.200 Nicotine dependence, unspecified, uncomplicated; Z59.0 Homelessness; Z79.899 Other long term (current) drug therapy; Z91.5 Personal history of self-harm
CPT/HCPCS: 80307; 83036; 84439; 84443; 87081

== ENCOUNTER 2018-12-16 05:00 | Inpatient (IN) | payer MEDICAID ==
[~2018-12-16] VITALS: Ht 167.6 cm; Wt 72.6 kg
[2018-12-16 05:00] VITALS: BP 123/81
[~2018-12-16 05:00] MED LIST changes: +SERT100T12 PO; -SERT50TA12 PO; +ZINC220 PO
[2018-12-16] MEDS ORDERED: ZOLPIDEM TARTRATE 10 MG TABLET PO PRN (07:45)
[2018-12-16] MEDS ORDERED: OLANZapine 5 MG RAPDIS TABLET PO PRN (07:45)
[2018-12-16 08:05] VITALS: BP 116/56
[2018-12-16] MEDS ORDERED: CloNIDine HCL 0.1 MG TABLET PO PRN (09:30)
[2018-12-16] MEDS ORDERED: PETROLATUM,WHITE 28 GM JELLY TP PRN (09:30)
[2018-12-16] MEDS ORDERED: NICOTINE 14 MG/24 HOUR PATCH TD PRN (09:30)
[2018-12-16] MEDS ORDERED: LOPERAMIDE HCL 2 MG CAPSULE PO PRN (09:30)
[2018-12-16] MEDS ORDERED: ALBUTEROL SULFATE HFA 90 MCG/PUFF 8 GM INHALER IH PRN (09:30)
[2018-12-16] MEDS: BACITRACIN 28.4 GM OINTMENT TP SCH ×2 (09:30→17:01)
[2018-12-16] MEDS ORDERED: MAGNESIUM HYDROXIDE SUSPENSION 30 ML UDCUP PO PRN (09:30)
[2018-12-16] MEDS ORDERED: MAG HYDROX/AL HYDROX/SIMETH ES 30 ML SUSPENSION UDCUP PO PRN (09:30)
[2018-12-16] MEDS ORDERED: DOCUSATE SODIUM 100 MG CAPSULE PO PRN (09:30)
[2018-12-16] MEDS ORDERED: IBUPROFEN 400 MG TABLET PO PRN (09:30)
[2018-12-16] MEDS ORDERED: ONDANSETRON HCL 4 MG TABLET PO PRN (09:30)
[2018-12-16] MEDS ORDERED: GuaiFENesin/D-METHORPHAN [SUGAR-FREE] 200-20MG/10 ML SYRUP UDCUP PO PRN (09:30)
[2018-12-16] MEDS ORDERED: ACETAMINOPHEN 325 MG TABLET PO PRN (09:30)
[2018-12-16] MEDS: SERTRALINE HCL 100 MG TABLET PO SCH (10:29)
[2018-12-16] MEDS: OLANZapine 10 MG TABLET PO SCH ×2 (10:29→20:54)
[2018-12-16] MEDS ORDERED: OLAN10TA3 PO (10:37)
[2018-12-16] MEDS ORDERED: SERT50TA12 PO (10:37)
[2018-12-16] MEDS ORDERED: PNEUMOCOCCAL VACCINE POLYVALENT 0.5 ML VIAL [PPSV23] IM ONE (11:15)
[2018-12-16] MEDS: LORazepam 1 MG TABLET PO PRN (20:54)
[2018-12-17 02:52] VITALS: BP 106/68
[2018-12-17 08:03] LABS: BASOPHILS % (AUTO) 0.4 % (0.0-2.0); EOSINOPHILS % (AUTO) 4.4 % (1.0-6.0); HEMOGLOBIN 12.5 g/dL (13.5-17.5); LYMPHOCYTES # (AUTO) 1.7 K/uL (1.0-4.8); LYMPHOCYTES % (AUTO) 27.5 % (22.0-44.0); MEAN CORPUSCULAR HEMOGLOBIN 29.8 pg (26.0-34.0); MEAN CORPUSCULAR HGB CONC 33.7 G/dL (31.0-37.0); MEAN CORPUSCULAR VOLUME 89 fL (80-100); MONOCYTES # (AUTO) 0.7 K/uL (0.1-1.0); NEUTROPHILS # (AUTO) 3.5 K/uL (1.8-7.7); NEUTROPHILS % (AUTO) 56.7 % (40.0-70.0); PLATELET COUNT (AUTO) 227 K/uL (150-450); RED BLOOD CELL COUNT(AUTO) 4.18 MIL/uL (4.50-5.90)
[2018-12-17 08:05] VITALS: BP 102/56
[2018-12-17 08:14] LABS: HEMOGLOBIN A1C 5.3 % (4.5-6.2)
[2018-12-17 08:28] LABS: ALANINE AMINOTRANSFERASE 25 U/L (12-78); ALBUMIN 3.3 g/dL (3.4-5.0); ALKALINE PHOSPHATASE 78 U/L (46-116); ANION GAP 8 mmol/L (8-16); ASPARTATE AMINOTRANSFERASE 12 U/L (15-37); BILIRUBIN,TOTAL 0.7 mg/dL (0.1-1.0); CALCIUM, TOTAL 8.8 mg/dL (8.8-10.5); CARBON DIOXIDE 28 mmol/L (22-29); CHLORIDE 105 mmol/L (98-107); CHOL/HDL RATIO 3.7 (4.2-7.3); CHOLESTEROL 175 mg/dL (131-200); CREATININE 0.74 mg/dL (0.60-1.30); GLOMERULAR FILTR. RATE CALC > 60 mL/min (>60); GLUCOSE,RANDOM 110 mg/dL (70-110); HDL CHOLESTEROL 47 mg/dL (40-60); LDL CHOL (CALC.) 113 mg/dL (0-130); POTASSIUM 3.9 mmol/L (3.5-5.1); SODIUM SERUM 141 mmol/L (136-145); TOTAL PROTEIN, SERUM 6.8 g/dL (6.4-8.2); TRIGLYCERIDES 77 mg/dL (15-150); UREA NITROGEN, BLOOD 20 mg/dL (7-18)
[2018-12-17 09:04] LABS: AMPHET/METH SCREEN,URINE POSITIVE (NEGATIVE); BARBITURATE SCREEN, URINE NEGATIVE (NEGATIVE); BENZODIAZEPINES SCREEN,URINE NEGATIVE (NEGATIVE); CANNABINOID SCREEN,URINE POSITIVE (NEGATIVE); COCAINE SCREEN,URINE NEGATIVE (NEGATIVE); METHADONE SCREEN, URINE NEGATIVE (NEGATIVE); OPIATE SCREEN,URINE NEGATIVE (NEGATIVE)
[2018-12-17 09:07] LABS: PHENCYCLIDINE SCREEN,URINE NEGATIVE (NEGATIVE)
[2018-12-17] MEDS: BACITRACIN 28.4 GM OINTMENT TP SCH ×2 (09:11→17:14)
[2018-12-17] MEDS: OLANZapine 10 MG TABLET PO SCH ×2 (09:11→21:01)
[2018-12-17] MEDS: SERTRALINE HCL 100 MG TABLET PO SCH (09:11)
[2018-12-17 10:15] LABS: APPEARANCE,URINE CLEAR (CLEAR); GLUCOSE, URINE (UA) NEGATIVE (NEGATIVE); KETONES,URINE >=80 mg/dL (NEGATIVE); LEUKOCYTE ESTERASE ,URINE NEGATIVE (NEGATIVE); NITRATE,URINE NEGATIVE (NEGATIVE); OCCULT BLOOD,URINE NEGATIVE (NEGATIVE); PH,URINE 5.5 (5.0-8.0); PROTEIN,URINE NEGATIVE (NEGATIVE)
[2018-12-17 10:26] LABS: BILIRUBIN,URINE PRELIM. POSITIVE (NEGATIVE)
[2018-12-17 16:07] VITALS: BP 107/62
[2018-12-18] MEDS ORDERED: PNEUMOCOCCAL VACCINE POLYVALENT 0.5 ML VIAL [PPSV23] IM ONE (06:15)
[2018-12-18 06:36] VITALS: BP 112/68
[2018-12-18] MEDS: BACITRACIN 28.4 GM OINTMENT TP SCH ×2 (08:33→17:08)
[2018-12-18] MEDS: SERTRALINE HCL 100 MG TABLET PO SCH (08:33)
[2018-12-18] MEDS: OLANZapine 10 MG TABLET PO SCH ×2 (08:33→21:01)
[2018-12-18] MEDS: LORazepam 1 MG TABLET PO PRN (08:46)
[2018-12-18 09:00] VITALS: BP 106/62
[2018-12-18 16:20] VITALS: BP 116/61
[2018-12-19 01:54] VITALS: BP 107/69
[2018-12-19 08:29] VITALS: BP 122/64
[2018-12-19] MEDS: SERTRALINE HCL 100 MG TABLET PO SCH (09:59)
[2018-12-19] MEDS: OLANZapine 10 MG TABLET PO SCH ×2 (09:59→20:53)
[2018-12-19] MEDS: BACITRACIN 28.4 GM OINTMENT TP SCH ×2 (09:59→16:33)
[2018-12-19] MEDS: FERROUS SULFATE 325 MG EC TABLET PO SCH (16:33)
[2018-12-19 16:50] VITALS: BP 118/77
[2018-12-20 02:19] VITALS: BP 108/64
[2018-12-20] MEDS: FERROUS SULFATE 325 MG EC TABLET PO SCH ×3 (06:18→17:41)
[2018-12-20] MEDS: SERTRALINE HCL 100 MG TABLET PO SCH (09:25)
[2018-12-20] MEDS: OLANZapine 10 MG TABLET PO SCH ×2 (09:25→20:55)
[2018-12-20] MEDS: BACITRACIN 28.4 GM OINTMENT TP SCH ×2 (09:26→17:41)
[2018-12-20 14:40] VITALS: BP 110/69
[2018-12-20 16:44] VITALS: BP 121/84
[2018-12-21 02:41] VITALS: BP 106/73
[2018-12-21] MEDS: FERROUS SULFATE 325 MG EC TABLET PO SCH ×3 (06:49→16:44)
[2018-12-21 08:46] VITALS: BP 100/50
[2018-12-21] MEDS: BACITRACIN 28.4 GM OINTMENT TP SCH ×2 (08:57→16:45)
[2018-12-21] MEDS: SERTRALINE HCL 100 MG TABLET PO SCH (08:57)
[2018-12-21] MEDS: OLANZapine 10 MG TABLET PO SCH ×2 (08:57→20:03)
[2018-12-21 16:24] VITALS: BP 113/63
[2018-12-22 00:23] VITALS: BP 116/61
[2018-12-22] MEDS: FERROUS SULFATE 325 MG EC TABLET PO SCH ×3 (07:03→16:41)
[2018-12-22 08:41] VITALS: BP 104/60
[2018-12-22] MEDS ORDERED: ZINC SULFATE 220 MG CAPSULE PO SCH (09:00)
[2018-12-22] MEDS ORDERED: ASCORBIC ACID 500 MG TABLET PO SCH (09:00)
[2018-12-22] MEDS: BACITRACIN 28.4 GM OINTMENT TP SCH (09:43)
[2018-12-22] MEDS: SERTRALINE HCL 100 MG TABLET PO SCH (09:43)
[2018-12-22] MEDS: OLANZapine 10 MG TABLET PO SCH (09:43)
[2018-12-22] MEDS ORDERED: FERR-89 PO (11:53)
[2018-12-22] MEDS ORDERED: ASCO500 PO (11:53)
[2018-12-22 16:02] VITALS: BP 110/61
== END 2018-12-22 19:35 | disposition home or self-care (01) | DRG 750 ==
LOC: B3A 05:00 → B2S 12-17 16:31
DX: F25.1 Schizoaffective disorder, depressive type (principal); R45.851 Suicidal ideations; Z59.0 Homelessness; D64.9 Anemia, unspecified; F10.10 Alcohol abuse, uncomplicated; F12.10 Cannabis abuse, uncomplicated; F15.10 Other stimulant abuse, uncomplicated; Z79.899 Other long term (current) drug therapy; Z71.41 Alcohol abuse counseling and surveillance of alcoholic; Z71.51 Drug abuse counseling and surveillance of drug abuser
CPT/HCPCS: 80307; 83036; 84443; 87081; 90732

== ENCOUNTER 2018-12-26 20:12 | Inpatient (IN) | payer MEDICAID ==
[~2018-12-26] VITALS: Ht 167.6 cm; Wt 74.5 kg
[~2018-12-26 20:12] MED LIST changes: +ASCO500 PO; +FERR-89 PO
[2018-12-26 21:28] VITALS: BP 129/74
[2018-12-26] MEDS ORDERED: HALOPERIDOL 5 MG TABLET PO PRN (21:30)
[2018-12-27 00:10] VITALS: BP 121/76
[2018-12-27] MEDS ORDERED: MAG HYDROX/AL HYDROX/SIMETH ES 30 ML SUSPENSION UDCUP PO PRN (07:00)
[2018-12-27] MEDS ORDERED: ALBUTEROL SULFATE HFA 90 MCG/PUFF 8 GM INHALER IH PRN (07:00)
[2018-12-27] MEDS ORDERED: LOPERAMIDE HCL 2 MG CAPSULE PO PRN (07:00)
[2018-12-27] MEDS ORDERED: MAGNESIUM HYDROXIDE SUSPENSION 30 ML UDCUP PO PRN (07:00)
[2018-12-27] MEDS ORDERED: CloNIDine HCL 0.1 MG TABLET PO PRN (07:00)
[2018-12-27] MEDS ORDERED: GuaiFENesin/D-METHORPHAN [SUGAR-FREE] 200-20MG/10 ML SYRUP UDCUP PO PRN (07:00)
[2018-12-27] MEDS ORDERED: IBUPROFEN 400 MG TABLET PO PRN (07:00)
[2018-12-27] MEDS ORDERED: ONDANSETRON HCL 4 MG TABLET PO PRN (07:00)
[2018-12-27] MEDS ORDERED: ACETAMINOPHEN 325 MG TABLET PO PRN (07:00)
[2018-12-27] MEDS ORDERED: NICOTINE 14 MG/24 HOUR PATCH TD PRN (07:00)
[2018-12-27] MEDS ORDERED: PETROLATUM,WHITE 28 GM JELLY TP PRN (07:00)
[2018-12-27] MEDS ORDERED: DOCUSATE SODIUM 100 MG CAPSULE PO PRN (07:00)
[2018-12-27 07:43] LABS: BASOPHILS % (AUTO) 0.5 % (0.0-2.0); EOSINOPHILS % (AUTO) 4.6 % (1.0-6.0); HEMATOCRIT 39.6 % (41-53); HEMOGLOBIN 13.2 g/dL (13.5-17.5); LYMPHOCYTES # (AUTO) 1.8 K/uL (1.0-4.8); LYMPHOCYTES % (AUTO) 28.8 % (22.0-44.0); MEAN CORPUSCULAR HEMOGLOBIN 29.9 pg (26.0-34.0); MEAN CORPUSCULAR HGB CONC 33.3 G/dL (31.0-37.0); MEAN CORPUSCULAR VOLUME 90 fL (80-100); MONOCYTES # (AUTO) 0.6 K/uL (0.1-1.0); MONOCYTES % (AUTO) 10.3 % (2.0-9.0); NEUTROPHILS # (AUTO) 3.5 K/uL (1.8-7.7); NEUTROPHILS % (AUTO) 55.8 % (40.0-70.0); PLATELET COUNT (AUTO) 217 K/uL (150-450); RED BLOOD CELL COUNT(AUTO) 4.41 MIL/uL (4.50-5.90); RED CELL DISTRIBUTION WIDTH 14.2 % (11.5-14.5)
[2018-12-27 07:55] LABS: HEMOGLOBIN A1C 5.5 % (4.5-6.2)
[2018-12-27 08:05] LABS: ALANINE AMINOTRANSFERASE 33 U/L (12-78); ALBUMIN 3.4 g/dL (3.4-5.0); ALKALINE PHOSPHATASE 73 U/L (46-116); ANION GAP 5 mmol/L (8-16); ASPARTATE AMINOTRANSFERASE 15 U/L (15-37); BILIRUBIN,TOTAL 1.1 mg/dL (0.1-1.0); CALCIUM, TOTAL 8.5 mg/dL (8.8-10.5); CARBON DIOXIDE 28 mmol/L (22-29); CHLORIDE 108 mmol/L (98-107); CHOL/HDL RATIO 4.1 (4.2-7.3); CHOLESTEROL 176 mg/dL (131-200); CREATININE 0.79 mg/dL (0.60-1.30); FREE T4 (FREE THYROXINE) 1.06 ng/dL (0.76-1.46); GLOMERULAR FILTR. RATE CALC > 60 mL/min (>60); GLUCOSE,RANDOM 101 mg/dL (70-110); HDL CHOLESTEROL 43 mg/dL (40-60); LDL CHOL (CALC.) 119 mg/dL (0-130); POTASSIUM 3.9 mmol/L (3.5-5.1); SODIUM SERUM 141 mmol/L (136-145); THYROID STIMULATING HORMONE 1.67 uIU/mL (0.36-3.74); TOTAL PROTEIN, SERUM 6.8 g/dL (6.4-8.2); TRIGLYCERIDES 72 mg/dL (15-150); UREA NITROGEN, BLOOD 15 mg/dL (7-18)
[2018-12-27 08:25] VITALS: BP 102/59
[2018-12-27] MEDS: SERTRALINE HCL 100 MG TABLET PO SCH (09:27)
[2018-12-27] MEDS: OLANZapine 10 MG TABLET PO SCH ×2 (09:27→20:49)
[2018-12-27 16:00] VITALS: BP 102/62
[2018-12-27] MEDS: ZOLPIDEM TARTRATE 10 MG TABLET PO PRN (20:49)
[2018-12-28] MEDS: LORazepam 2 MG TABLET PO PRN (03:02)
[2018-12-28 05:33] VITALS: BP 104/60
[2018-12-28 08:11] LABS: BASOPHILS % (AUTO) 0.3 % (0.0-2.0); EOSINOPHILS % (AUTO) 6.3 % (1.0-6.0); HEMATOCRIT 37.6 % (41-53); HEMOGLOBIN 12.6 g/dL (13.5-17.5); LYMPHOCYTES # (AUTO) 1.6 K/uL (1.0-4.8); LYMPHOCYTES % (AUTO) 26.1 % (22.0-44.0); MEAN CORPUSCULAR HGB CONC 33.5 G/dL (31.0-37.0); MEAN CORPUSCULAR VOLUME 89 fL (80-100); MONOCYTES # (AUTO) 0.5 K/uL (0.1-1.0); MONOCYTES % (AUTO) 7.7 % (2.0-9.0); NEUTROPHILS # (AUTO) 3.6 K/uL (1.8-7.7); NEUTROPHILS % (AUTO) 59.6 % (40.0-70.0); PLATELET COUNT (AUTO) 203 K/uL (150-450)
[2018-12-28 08:18] LABS: HEMOGLOBIN A1C 5.5 % (4.5-6.2)
[2018-12-28 08:23] VITALS: BP 110/63
[2018-12-28 08:51] LABS: ALANINE AMINOTRANSFERASE 25 U/L (12-78); ALBUMIN 3.2 g/dL (3.4-5.0); ALKALINE PHOSPHATASE 69 U/L (46-116); ANION GAP 9 mmol/L (8-16); ASPARTATE AMINOTRANSFERASE 13 U/L (15-37); BILIRUBIN,TOTAL 0.6 mg/dL (0.1-1.0); CALCIUM, TOTAL 8.4 mg/dL (8.8-10.5); CARBON DIOXIDE 27 mmol/L (22-29); CHLORIDE 108 mmol/L (98-107); CHOL/HDL RATIO 4.4 (4.2-7.3); CHOLESTEROL 167 mg/dL (131-200); CREATININE 0.77 mg/dL (0.60-1.30); GLOMERULAR FILTR. RATE CALC > 60 mL/min (>60); GLUCOSE,RANDOM 90 mg/dL (70-110); HDL CHOLESTEROL 38 mg/dL (40-60); LDL CHOL (CALC.) 113 mg/dL (0-130); SODIUM SERUM 144 mmol/L (136-145); THYROID STIMULATING HORMONE 1.05 uIU/mL (0.36-3.74); TOTAL PROTEIN, SERUM 6.4 g/dL (6.4-8.2); TRIGLYCERIDES 81 mg/dL (15-150); UREA NITROGEN, BLOOD 10 mg/dL (7-18)
[2018-12-28] MEDS: OLANZapine 10 MG TABLET PO SCH ×2 (09:22→20:43)
[2018-12-28] MEDS: SERTRALINE HCL 100 MG TABLET PO SCH (09:22)
[2018-12-28 16:00] VITALS: BP 108/65
[2018-12-28] MEDS: ZOLPIDEM TARTRATE 10 MG TABLET PO PRN (20:43)
[2018-12-29 02:16] VITALS: BP 127/70
[2018-12-29 08:08] VITALS: BP 117/60
[2018-12-29] MEDS: OLANZapine 10 MG TABLET PO SCH ×2 (09:21→20:46)
[2018-12-29] MEDS: SERTRALINE HCL 100 MG TABLET PO SCH (09:22)
[2018-12-29 16:23] VITALS: BP 106/63
[2018-12-29] MEDS: LORazepam 2 MG TABLET PO PRN (17:50)
[2018-12-29] MEDS: ZOLPIDEM TARTRATE 10 MG TABLET PO PRN (20:46)
[2018-12-30 05:57] VITALS: BP 117/90
[2018-12-30 08:52] VITALS: BP 123/70
[2018-12-30] MEDS: OLANZapine 10 MG TABLET PO SCH ×2 (09:00→20:37)
[2018-12-30] MEDS: SERTRALINE HCL 100 MG TABLET PO SCH (09:00)
[2018-12-30 16:00] VITALS: BP 121/65
[2018-12-30] MEDS: LORazepam 2 MG TABLET PO PRN (20:37)
[2018-12-30] MEDS: ZOLPIDEM TARTRATE 10 MG TABLET PO PRN (20:37)
[2018-12-31 00:45] VITALS: BP 111/88
[2018-12-31 08:33] VITALS: BP 106/61
[2018-12-31] MEDS: OLANZapine 10 MG TABLET PO SCH ×2 (08:54→20:40)
[2018-12-31] MEDS: SERTRALINE HCL 100 MG TABLET PO SCH (08:54)
[2018-12-31] MEDS: LORazepam 2 MG TABLET PO PRN (16:34)
[2018-12-31 16:41] VITALS: BP 120/75
[2018-12-31] MEDS: ZOLPIDEM TARTRATE 10 MG TABLET PO PRN (20:40)
[2019-01-01 06:00] VITALS: BP 118/70
[2019-01-01] MEDS: OLANZapine 10 MG TABLET PO SCH ×2 (08:51→20:39)
[2019-01-01] MEDS: SERTRALINE HCL 100 MG TABLET PO SCH (08:51)
[2019-01-01 09:20] VITALS: BP 100/60
[2019-01-01 16:00] VITALS: BP 107/64
[2019-01-01] MEDS: LORazepam 2 MG TABLET PO PRN (18:44)
[2019-01-01] MEDS: ZOLPIDEM TARTRATE 10 MG TABLET PO PRN (20:39)
[2019-01-02 03:10] VITALS: BP 112/78
[2019-01-02 08:57] VITALS: BP 100/60
[2019-01-02] MEDS: OLANZapine 10 MG TABLET PO SCH (09:18)
[2019-01-02] MEDS: SERTRALINE HCL 100 MG TABLET PO SCH (09:18)
== END 2019-01-02 15:30 | disposition home or self-care (01) | DRG 750 ==
LOC: B3A 22:34
PROVIDERS: ADMIT Psychiatry & Neurology Psychiatry
DX: F25.1 Schizoaffective disorder, depressive type (principal); R45.851 Suicidal ideations; Z59.0 Homelessness; D64.9 Anemia, unspecified; F10.10 Alcohol abuse, uncomplicated; F19.90 Other psychoactive substance use, unspecified, uncomplicated; F41.9 Anxiety disorder, unspecified; Z91.5 Personal history of self-harm; F15.90 Other stimulant use, unspecified, uncomplicated; Z76.5 Malingerer [conscious simulation]
CPT/HCPCS: 83036; 84439; 84443; 87081

== ENCOUNTER 2019-02-14 13:32 | Inpatient (IN) | payer MEDICAID ==
[~2019-02-14] VITALS: Ht 167.6 cm; Wt 50.8 kg
[~2019-02-14 13:32] MED LIST changes: +ARIP10TA8 PO; -ASCO500 PO; +ESCI10TA54 PO; -FERR-89 PO; -OLAN10TA20 PO; -SERT100T12 PO; -ZINC220 PO
[2019-02-14] MEDS ORDERED: HALOPERIDOL 5 MG TABLET PO PRN (16:00)
[2019-02-14] MEDS ORDERED: LORazepam 2 MG TABLET PO PRN (16:00)
[2019-02-14] MEDS ORDERED: ZOLPIDEM TARTRATE 10 MG TABLET PO PRN (16:00)
[2019-02-14 16:24] VITALS: BP 165/92
[2019-02-14 19:48] VITALS: BP 146/80
[2019-02-14] MEDS ORDERED: IBUPROFEN 400 MG TABLET PO PRN (20:15)
[2019-02-14] MEDS ORDERED: CloNIDine HCL 0.1 MG TABLET PO PRN (20:15)
[2019-02-14] MEDS ORDERED: LOPERAMIDE HCL 2 MG CAPSULE PO PRN (20:15)
[2019-02-14] MEDS ORDERED: NICOTINE 14 MG/24 HOUR PATCH TD PRN (20:15)
[2019-02-14] MEDS ORDERED: DOCUSATE SODIUM 100 MG CAPSULE PO PRN (20:15)
[2019-02-14] MEDS ORDERED: ONDANSETRON HCL 4 MG TABLET PO PRN (20:15)
[2019-02-14] MEDS ORDERED: MAGNESIUM HYDROXIDE SUSPENSION 30 ML UDCUP PO PRN (20:15)
[2019-02-14] MEDS ORDERED: ACETAMINOPHEN 325 MG TABLET PO PRN (20:15)
[2019-02-14] MEDS ORDERED: MAG HYDROX/AL HYDROX/SIMETH ES 30 ML SUSPENSION UDCUP PO PRN (20:15)
[2019-02-14] MEDS ORDERED: ALBUTEROL SULFATE HFA 90 MCG/PUFF 8 GM INHALER IH PRN (20:15)
[2019-02-14] MEDS ORDERED: GuaiFENesin/D-METHORPHAN [SUGAR-FREE] 200-20MG/10 ML SYRUP UDCUP PO PRN (20:15)
[2019-02-14] MEDS ORDERED: PETROLATUM,WHITE 28 GM JELLY TP PRN (20:15)
[2019-02-14] MEDS: BACITRACIN 28.4 GM OINTMENT TP SCH (21:13)
[2019-02-14 21:31] VITALS: BP 122/60
[2019-02-14] MEDS ORDERED: PERMETHRIN 5% 60 GM CREAM TP ONE (21:45)
[2019-02-15 00:24] VITALS: BP 110/61
[2019-02-15 08:19] VITALS: BP 117/90
[2019-02-15 08:28] LABS: BASOPHILS % (AUTO) 0.5 % (0.0-2.0); EOSINOPHILS % (AUTO) 4.7 % (1.0-6.0); LYMPHOCYTES # (AUTO) 1.6 K/uL (1.0-4.8); LYMPHOCYTES % (AUTO) 20.6 % (22.0-44.0); MEAN CORPUSCULAR HGB CONC 32.5 G/dL (31.0-37.0); MEAN CORPUSCULAR VOLUME 92 fL (80-100); MONOCYTES # (AUTO) 0.8 K/uL (0.1-1.0); NEUTROPHILS # (AUTO) 5.1 K/uL (1.8-7.7); NEUTROPHILS % (AUTO) 64.2 % (40.0-70.0); PLATELET COUNT (AUTO) 195 K/uL (150-450); RED BLOOD CELL COUNT(AUTO) 4.34 MIL/uL (4.50-5.90); RED CELL DISTRIBUTION WIDTH 13.8 % (11.5-14.5)
[2019-02-15] MEDS: ESCITALOPRAM OXALATE 10 MG TABLET PO SCH (08:45)
[2019-02-15] MEDS: ARIPiprazole 10 MG TABLET PO SCH (08:45)
[2019-02-15] MEDS: BACITRACIN 28.4 GM OINTMENT TP SCH ×2 (08:46→17:01)
[2019-02-15 08:50] LABS: HEMOGLOBIN A1C 5.4 % (4.5-6.2)
[2019-02-15 08:59] LABS: ALANINE AMINOTRANSFERASE 15 U/L (12-78); ALBUMIN 3.2 g/dL (3.4-5.0); ALKALINE PHOSPHATASE 67 U/L (46-116); ANION GAP 6 mmol/L (8-16); ASPARTATE AMINOTRANSFERASE 15 U/L (15-37); BILIRUBIN,TOTAL 0.7 mg/dL (0.1-1.0); CALCIUM, TOTAL 8.6 mg/dL (8.8-10.5); CARBON DIOXIDE 27 mmol/L (22-29); CHLORIDE 105 mmol/L (98-107); CHOLESTEROL 123 mg/dL (131-200); CREATININE 0.79 mg/dL (0.60-1.30); FREE T4 (FREE THYROXINE) 1.05 ng/dL (0.76-1.46); GLOMERULAR FILTR. RATE CALC > 60 mL/min (>60); GLUCOSE,RANDOM 86 mg/dL (70-110); HDL CHOLESTEROL 41 mg/dL (40-60); LDL CHOL (CALC.) 68 mg/dL (0-130); POTASSIUM 3.8 mmol/L (3.5-5.1); SODIUM SERUM 138 mmol/L (136-145); THYROID STIMULATING HORMONE 2.19 uIU/mL (0.36-3.74); TOTAL PROTEIN, SERUM 6.6 g/dL (6.4-8.2); TRIGLYCERIDES 68 mg/dL (15-150); UREA NITROGEN, BLOOD 12 mg/dL (7-18)
[2019-02-15 16:06] VITALS: BP 127/61
[2019-02-16 05:00] VITALS: BP 117/66
[2019-02-16] MEDS: ESCITALOPRAM OXALATE 10 MG TABLET PO SCH (08:29)
[2019-02-16] MEDS: BACITRACIN 28.4 GM OINTMENT TP SCH ×2 (08:29→16:59)
[2019-02-16] MEDS: ARIPiprazole 10 MG TABLET PO SCH (08:29)
[2019-02-16 08:30] VITALS: BP 112/56
[2019-02-16] MEDS: FERROUS SULFATE 325 MG EC TABLET PO SCH ×2 (12:05→16:59)
[2019-02-16 16:00] VITALS: BP 120/69
[2019-02-16] MEDS ORDERED: ARIPiprazole LAUROXIL ER SUSPENSION 1064 MG/3.9 ML SYRINGE IM ONE (16:00)
[2019-02-16] MEDS ORDERED: ARIPiprazole LAUROXIL,SUBMICR. ER SUSPENSION 675 MG/2.4 ML SYRINGE IM ONE (16:00)
[2019-02-17] VITALS: BP 117/68
[2019-02-17] MEDS: FERROUS SULFATE 325 MG EC TABLET PO SCH ×2 (07:06→16:50)
[2019-02-17 08:00] VITALS: BP 90/49
[2019-02-17] MEDS: ARIPiprazole 10 MG TABLET PO SCH (08:36)
[2019-02-17] MEDS: ESCITALOPRAM OXALATE 10 MG TABLET PO SCH (08:36)
[2019-02-17] MEDS: BACITRACIN 28.4 GM OINTMENT TP SCH ×2 (08:37→16:50)
[2019-02-17 16:16] VITALS: BP 116/60
[2019-02-18 00:10] VITALS: BP 106/63
[2019-02-18] MEDS: FERROUS SULFATE 325 MG EC TABLET PO SCH ×2 (06:40→17:06)
[2019-02-18 08:26] VITALS: BP 119/63
[2019-02-18] MEDS: BACITRACIN 28.4 GM OINTMENT TP SCH ×2 (08:53→17:06)
[2019-02-18] MEDS: ARIPiprazole 10 MG TABLET PO SCH (08:53)
[2019-02-18] MEDS: ESCITALOPRAM OXALATE 10 MG TABLET PO SCH (08:53)
[2019-02-18 16:14] VITALS: BP 101/60
[2019-02-19 00:01] VITALS: BP 119/71
[2019-02-19] MEDS: FERROUS SULFATE 325 MG EC TABLET PO SCH ×2 (06:53→16:12)
[2019-02-19] MEDS: ARIPiprazole 10 MG TABLET PO SCH (07:57)
[2019-02-19] MEDS: ESCITALOPRAM OXALATE 10 MG TABLET PO SCH (07:57)
[2019-02-19] MEDS: BACITRACIN 28.4 GM OINTMENT TP SCH ×2 (07:59→16:12)
[2019-02-19 08:01] VITALS: BP 95/58
[2019-02-20 00:16] VITALS: BP 106/72
[2019-02-20] MEDS: FERROUS SULFATE 325 MG EC TABLET PO SCH ×2 (06:48→16:18)
[2019-02-20 08:01] VITALS: BP 114/69
[2019-02-20] MEDS: ARIPiprazole 10 MG TABLET PO SCH (08:01)
[2019-02-20] MEDS: ESCITALOPRAM OXALATE 10 MG TABLET PO SCH (08:01)
[2019-02-20] MEDS: BACITRACIN 28.4 GM OINTMENT TP SCH ×2 (08:02→16:18)
[2019-02-20 16:07] VITALS: BP 122/66
[2019-02-21 00:12] VITALS: BP 120/81
[2019-02-21] MEDS: FERROUS SULFATE 325 MG EC TABLET PO SCH ×2 (06:26→16:40)
[2019-02-21 08:04] VITALS: BP 103/63
[2019-02-21] MEDS: ESCITALOPRAM OXALATE 10 MG TABLET PO SCH (08:43)
[2019-02-21] MEDS: ARIPiprazole 10 MG TABLET PO SCH (08:43)
[2019-02-21] MEDS: BACITRACIN 28.4 GM OINTMENT TP SCH ×2 (08:44→17:08)
[2019-02-21 16:05] VITALS: BP 103/65
[2019-02-22 01:31] VITALS: BP 110/68
[2019-02-22] MEDS: FERROUS SULFATE 325 MG EC TABLET PO SCH ×2 (06:39→16:12)
[2019-02-22 08:04] VITALS: BP 104/64
[2019-02-22] MEDS: ARIPiprazole 10 MG TABLET PO SCH (08:21)
[2019-02-22] MEDS: BACITRACIN 28.4 GM OINTMENT TP SCH ×2 (08:21→16:52)
[2019-02-22] MEDS: ESCITALOPRAM OXALATE 10 MG TABLET PO SCH (08:21)
[2019-02-22 16:08] VITALS: BP 109/60
[2019-02-22] MEDS ORDERED: FERR-89 PO (23:32)
[2019-02-22] MEDS ORDERED: ARIP1064 IM (23:33)
[2019-02-22] MEDS ORDERED: ESCI10TA PO (23:35)
[2019-02-23 03:34] VITALS: BP 111/73
[2019-02-23] MEDS: FERROUS SULFATE 325 MG EC TABLET PO SCH (06:27)
== END 2019-02-23 07:15 | disposition home or self-care (01) | DRG 750 ==
LOC: B2S 15:50
DX: F25.1 Schizoaffective disorder, depressive type (principal); R45.851 Suicidal ideations; Z91.19 Patient's noncompliance with other medical treatment and regimen; D64.9 Anemia, unspecified; F10.10 Alcohol abuse, uncomplicated; S10.91XA Abrasion of unspecified part of neck, initial encounter; S20.319A Abrasion of unspecified front wall of thorax, initial encounter; X78.8XXA Intentional self-harm by other sharp object, initial encounter; F32.9 Major depressive disorder, single episode, unspecified; F41.9 Anxiety disorder, unspecified; Z71.41 Alcohol abuse counseling and surveillance of alcoholic; Z79.899 Other long term (current) drug therapy; Z71.51 Drug abuse counseling and surveillance of drug abuser; Y93.89 Activity, other specified; Y92.89 Other specified places as the place of occurrence of the external cause; Y99.8 Other external cause status
CPT/HCPCS: 83036; 84439; 84443; 87081

== ENCOUNTER 2019-02-25 22:44 | Inpatient (IN) | payer MEDICAID ==
[~2019-02-25 22:44] MED LIST changes: +ARIP1064 IM; -ARIP10TA8 PO; +ESCI10TA PO; -ESCI10TA54 PO; +FERR-89 PO
[2019-02-25 23:09] VITALS: BP 109/69
[2019-02-25] MEDS ORDERED: ZOLPIDEM TARTRATE 10 MG TABLET PO PRN (23:30)
[2019-02-25] MEDS ORDERED: HALOPERIDOL 5 MG TABLET PO PRN (23:30)
[2019-02-26 01:47] VITALS: BP 117/68
[2019-02-26 07:43] LABS: BASOPHILS % (AUTO) 0.5 % (0.0-2.0); HEMATOCRIT 40.1 % (41-53); HEMOGLOBIN 13.4 g/dL (13.5-17.5); LYMPHOCYTES # (AUTO) 1.9 K/uL (1.0-4.8); LYMPHOCYTES % (AUTO) 22.4 % (22.0-44.0); MEAN CORPUSCULAR HEMOGLOBIN 30.3 pg (26.0-34.0); MEAN CORPUSCULAR HGB CONC 33.3 G/dL (31.0-37.0); MEAN CORPUSCULAR VOLUME 91 fL (80-100); MONOCYTES # (AUTO) 0.9 K/uL (0.1-1.0); NEUTROPHILS # (AUTO) 5.4 K/uL (1.8-7.7); NEUTROPHILS % (AUTO) 64.1 % (40.0-70.0); PLATELET COUNT (AUTO) 244 K/uL (150-450); RED BLOOD CELL COUNT(AUTO) 4.42 MIL/uL (4.50-5.90); RED CELL DISTRIBUTION WIDTH 13.9 % (11.5-14.5)
[2019-02-26 08:01] LABS: AMPHET/METH SCREEN,URINE POSITIVE (NEGATIVE); BARBITURATE SCREEN, URINE NEGATIVE (NEGATIVE); BENZODIAZEPINES SCREEN,URINE NEGATIVE (NEGATIVE); CANNABINOID SCREEN,URINE POSITIVE (NEGATIVE); COCAINE SCREEN,URINE NEGATIVE (NEGATIVE); METHADONE SCREEN, URINE NEGATIVE (NEGATIVE); OPIATE SCREEN,URINE POSITIVE (NEGATIVE); PHENCYCLIDINE SCREEN,URINE NEGATIVE (NEGATIVE)
[2019-02-26 08:05] LABS: HEMOGLOBIN A1C 5.1 % (4.5-6.2)
[2019-02-26 08:06] LABS: ALANINE AMINOTRANSFERASE 32 U/L (12-78); ALBUMIN 3.5 g/dL (3.4-5.0); ALKALINE PHOSPHATASE 76 U/L (46-116); ANION GAP 7 mmol/L (8-16); ASPARTATE AMINOTRANSFERASE 12 U/L (15-37); BILIRUBIN,TOTAL 1.2 mg/dL (0.1-1.0); CALCIUM, TOTAL 9.4 mg/dL (8.8-10.5); CARBON DIOXIDE 28 mmol/L (22-29); CHLORIDE 102 mmol/L (98-107); CHOL/HDL RATIO 4.5 (4.2-7.3); CHOLESTEROL 167 mg/dL (131-200); CREATININE 0.87 mg/dL (0.60-1.30); FREE T4 (FREE THYROXINE) 1.22 ng/dL (0.76-1.46); GLOMERULAR FILTR. RATE CALC > 60 mL/min (>60); GLUCOSE,RANDOM 84 mg/dL (70-110); HDL CHOLESTEROL 37 mg/dL (40-60); LDL CHOL (CALC.) 94 mg/dL (0-130); POTASSIUM 3.4 mmol/L (3.5-5.1); SODIUM SERUM 137 mmol/L (136-145); THYROID STIMULATING HORMONE 4.52 uIU/mL (0.36-3.74); TOTAL PROTEIN, SERUM 7.2 g/dL (6.4-8.2); TRIGLYCERIDES 182 mg/dL (15-150); UREA NITROGEN, BLOOD 21 mg/dL (7-18)
[2019-02-26 08:21] VITALS: BP 107/77
[2019-02-26 08:46] LABS: APPEARANCE,URINE TURBID (CLEAR); GLUCOSE, URINE (UA) NEGATIVE (NEGATIVE); KETONES,URINE TRACE mg/dL (NEGATIVE); LEUKOCYTE ESTERASE ,URINE NEGATIVE (NEGATIVE); NITRATE,URINE POSITIVE (NEGATIVE); OCCULT BLOOD,URINE NEGATIVE (NEGATIVE); PH,URINE 5.5 (5.0-8.0); PROTEIN,URINE POS 1+ (NEGATIVE); UROBILINOGEN,URINE 0.2 mg/dL (<=1.0)
[2019-02-26 08:55] LABS: BILIRUBIN,URINE PRELIM. POSITIVE (NEGATIVE)
[2019-02-26 08:59] LABS: AMORPHOUS SEDIMENT,UR Many /LPF (None Seen); BACTERIA,URINE Moderate /HPF (None Seen); CALCIUM OXALATE CRYSTALS,UR Few /LPF (None Seen); RBC,URINE None Seen /HPF (0-2); SQUAMOUS EPITHELIAL CELL,UR Rare /LPF (None Seen); WBC,URINE 0-2 /HPF (0-5)
[2019-02-26] MEDS ORDERED: POTASSIUM CHLORIDE 20 MEQ ER TABLET PO ONE (09:45)
[2019-02-26] MEDS: ESCITALOPRAM OXALATE 10 MG TABLET PO SCH (10:04)
[2019-02-26] MEDS ORDERED: MAGNESIUM HYDROXIDE SUSPENSION 30 ML UDCUP PO PRN (12:15)
[2019-02-26] MEDS ORDERED: CloNIDine HCL 0.1 MG TABLET PO PRN (12:15)
[2019-02-26] MEDS ORDERED: NICOTINE 14 MG/24 HOUR PATCH TD PRN (12:15)
[2019-02-26] MEDS ORDERED: MAG HYDROX/AL HYDROX/SIMETH ES 30 ML SUSPENSION UDCUP PO PRN (12:15)
[2019-02-26] MEDS ORDERED: DOCUSATE SODIUM 100 MG CAPSULE PO PRN (12:15)
[2019-02-26] MEDS ORDERED: ACETAMINOPHEN 325 MG TABLET PO PRN (12:15)
[2019-02-26] MEDS ORDERED: ONDANSETRON HCL 4 MG TABLET PO PRN (12:15)
[2019-02-26] MEDS ORDERED: GuaiFENesin/D-METHORPHAN [SUGAR-FREE] 200-20MG/10 ML SYRUP UDCUP PO PRN (12:15)
[2019-02-26] MEDS ORDERED: ALBUTEROL SULFATE HFA 90 MCG/PUFF 8 GM INHALER IH PRN (12:15)
[2019-02-26] MEDS ORDERED: LOPERAMIDE HCL 2 MG CAPSULE PO PRN (12:15)
[2019-02-26] MEDS ORDERED: PETROLATUM,WHITE 28 GM JELLY TP PRN (12:15)
[2019-02-26 16:07] VITALS: BP 105/62
[2019-02-26] MEDS: FERROUS SULFATE 325 MG EC TABLET PO SCH (17:10)
[2019-02-27 00:08] VITALS: BP 114/64
[2019-02-27] MEDS: FERROUS SULFATE 325 MG EC TABLET PO SCH ×2 (06:56→16:11)
[2019-02-27 08:08] VITALS: BP 109/60
[2019-02-27] MEDS: ESCITALOPRAM OXALATE 10 MG TABLET PO SCH (08:11)
[2019-02-27 16:09] VITALS: BP 107/69
[2019-02-27] MEDS: CEPHALEXIN MONOHYDRATE 250 MG CAPSULE PO SCH (16:11)
[2019-02-28] MEDS: CEPHALEXIN MONOHYDRATE 250 MG CAPSULE PO SCH ×3 (00:07→17:14)
[2019-02-28 00:12] VITALS: BP 124/67
[2019-02-28] MEDS: FERROUS SULFATE 325 MG EC TABLET PO SCH ×2 (06:34→17:14)
[2019-02-28 08:19] VITALS: BP 113/67
[2019-02-28] MEDS: ESCITALOPRAM OXALATE 10 MG TABLET PO SCH (08:42)
[2019-02-28 16:14] VITALS: BP 103/60
[2019-02-28] MEDS: LORazepam 2 MG TABLET PO PRN (21:22)
[2019-03-01] MEDS: CEPHALEXIN MONOHYDRATE 250 MG CAPSULE PO SCH ×4 (00:03→23:56)
[2019-03-01 00:45] VITALS: BP 134/76
[2019-03-01] MEDS: FERROUS SULFATE 325 MG EC TABLET PO SCH ×2 (07:09→16:12)
[2019-03-01] MEDS: ESCITALOPRAM OXALATE 10 MG TABLET PO SCH (08:15)
[2019-03-01 08:47] VITALS: BP 103/72
[2019-03-01] MEDS: LORazepam 2 MG TABLET PO PRN ×2 (11:08→16:12)
[2019-03-01 16:20] VITALS: BP 100/60
[2019-03-02 00:55] VITALS: BP 122/77
[2019-03-02] MEDS: IBUPROFEN 400 MG TABLET PO PRN ×2 (00:56→16:11)
[2019-03-02] MEDS: FERROUS SULFATE 325 MG EC TABLET PO SCH ×2 (06:01→16:09)
[2019-03-02] MEDS: CEPHALEXIN MONOHYDRATE 250 MG CAPSULE PO SCH ×2 (08:05→16:09)
[2019-03-02] MEDS: ESCITALOPRAM OXALATE 10 MG TABLET PO SCH (08:05)
[2019-03-02 08:11] VITALS: BP 115/82
[2019-03-02 16:15] VITALS: BP 135/60
[2019-03-02 20:29] VITALS: BP 126/64
[2019-03-02 21:29] VITALS: BP 126/64
[2019-03-03] MEDS: CEPHALEXIN MONOHYDRATE 250 MG CAPSULE PO SCH ×3 (00:02→16:32)
[2019-03-03 03:32] VITALS: BP 140/84
[2019-03-03] MEDS: FERROUS SULFATE 325 MG EC TABLET PO SCH ×2 (06:59→16:32)
[2019-03-03 08:09] VITALS: BP 135/76
[2019-03-03] MEDS: ESCITALOPRAM OXALATE 10 MG TABLET PO SCH (08:44)
[2019-03-03 16:11] VITALS: BP 110/60
[2019-03-03] MEDS: IBUPROFEN 400 MG TABLET PO PRN (18:40)
[2019-03-03 18:41] VITALS: BP 106/60
[2019-03-04] MEDS: CEPHALEXIN MONOHYDRATE 250 MG CAPSULE PO SCH ×3 (00:03→16:02)
[2019-03-04 00:06] VITALS: BP 103/62
[2019-03-04] MEDS: FERROUS SULFATE 325 MG EC TABLET PO SCH ×2 (06:55→16:02)
[2019-03-04] MEDS: ESCITALOPRAM OXALATE 10 MG TABLET PO SCH (08:23)
[2019-03-04] MEDS: OMEGA-3/DHA/EPA/FISH OIL 1,000 MG CAPSULE PO SCH (08:23)
[2019-03-04 08:41] VITALS: BP 105/66
[2019-03-04] MEDS: LORazepam 2 MG TABLET PO PRN (16:02)
[2019-03-04] MEDS: AMOX TR/POT CLAV 500 MG/125 MG TABLET PO SCH (16:02)
[2019-03-04 16:11] VITALS: BP 125/60
[2019-03-04] MEDS ORDERED: IBUPROFEN 600 MG TABLET PO PRN (18:15)
[2019-03-05 04:19] VITALS: BP 108/64
[2019-03-05] MEDS: FERROUS SULFATE 325 MG EC TABLET PO SCH ×2 (07:17→16:17)
[2019-03-05 08:22] VITALS: BP 101/60
[2019-03-05] MEDS: OMEGA-3/DHA/EPA/FISH OIL 1,000 MG CAPSULE PO SCH (08:24)
[2019-03-05] MEDS: AMOX TR/POT CLAV 500 MG/125 MG TABLET PO SCH ×3 (08:24→16:17)
[2019-03-05] MEDS: ESCITALOPRAM OXALATE 10 MG TABLET PO SCH (08:24)
[2019-03-05] MEDS ORDERED: ARIP1064 IM (10:44)
[2019-03-05] MEDS ORDERED: ESCI10TA54 PO (10:44)
[2019-03-05] MEDS ORDERED: AMOX1TAB15 PO (10:57)
[2019-03-05] MEDS ORDERED: OMEG-53 PO (10:57)
[2019-03-05 15:30] VITALS: BP 103/60
[2019-03-05 16:00] VITALS: BP 103/60
[2019-03-16] MEDS ORDERED: ARIPiprazole LAUROXIL ER SUSPENSION 1064 MG/3.9 ML SYRINGE IM SCH (09:00)
== END 2019-03-05 20:10 | disposition home or self-care (01) | DRG 750 ==
LOC: B2S 02-26 01:03
PROVIDERS: ADMIT Psychiatry & Neurology Psychiatry
DX: F25.1 Schizoaffective disorder, depressive type (principal); F15.20 Other stimulant dependence, uncomplicated; D50.9 Iron deficiency anemia, unspecified; K30 Functional dyspepsia; F41.9 Anxiety disorder, unspecified; E87.6 Hypokalemia; R17 Unspecified jaundice; E03.9 Hypothyroidism, unspecified; Z59.0 Homelessness; Z79.899 Other long term (current) drug therapy; Z91.5 Personal history of self-harm
CPT/HCPCS: 80307; 83036; 84132; 84439; 84443; 87081; 87086

== ENCOUNTER 2019-11-19 05:31 | Inpatient (IN) | payer MEDICAID ==
[~2019-11-19] VITALS: Ht 165.1 cm; Wt 75.2 kg
[~2019-11-19 05:31] MED LIST changes: +AMOX1TAB15 PO; -ESCI10TA PO; +ESCI10TA61 PO; +OMEG-53 PO
[2019-11-19] MEDS ORDERED: HALOPERIDOL 5 MG TABLET PO PRN (15:45)
[2019-11-19 16:01] VITALS: BP 115/68
[2019-11-19 16:38] VITALS: BP 118/75
[2019-11-19] MEDS ORDERED: ARIP1064 IM (17:11)
[2019-11-19] MEDS ORDERED: INFLUENZA VIRUS VACCINE QVS 2019-20 (3YR+)/PF 60 MCG/0.5 ML SYRINGE IM ONE (17:15)
[2019-11-19] MEDS: ZOLPIDEM TARTRATE 10 MG TABLET PO PRN (20:25)
[2019-11-20 05:00] VITALS: BP 100/68
[2019-11-20] MEDS: FERROUS SULFATE 325 MG EC TABLET PO SCH ×2 (06:33→16:33)
[2019-11-20 08:01] VITALS: BP 100/74
[2019-11-20] MEDS: OMEGA-3/DHA/EPA/FISH OIL 1,000 MG CAPSULE PO SCH (08:42)
[2019-11-20] MEDS: NICOTINE 14 MG/24 HOUR PATCH TD SCH (08:42)
[2019-11-20 09:48] LABS: BASOPHILS % (AUTO) 0.3 % (0.0-2.0); EOSINOPHILS % (AUTO) 4.7 % (1.0-6.0); HEMOGLOBIN 13.1 g/dL (13.5-17.5); LYMPHOCYTES # (AUTO) 1.8 K/uL (1.0-4.8); LYMPHOCYTES % (AUTO) 27.4 % (22.0-44.0); MEAN CORPUSCULAR HEMOGLOBIN 29.8 pg (26.0-34.0); MEAN CORPUSCULAR HGB CONC 32.8 G/dL (31.0-37.0); MEAN CORPUSCULAR VOLUME 91 fL (80-100); MONOCYTES # (AUTO) 0.4 K/uL (0.1-1.0); MONOCYTES % (AUTO) 6.5 % (2.0-9.0); NEUTROPHILS % (AUTO) 61.1 % (40.0-70.0); PLATELET COUNT (AUTO) 210 K/uL (150-450); RED BLOOD CELL COUNT(AUTO) 4.39 MIL/uL (4.50-5.90); RED CELL DISTRIBUTION WIDTH 13.8 % (11.5-14.5)
[2019-11-20 10:21] LABS: ALANINE AMINOTRANSFERASE 19 U/L (12-78); ALBUMIN 3.3 g/dL (3.4-5.0); ALKALINE PHOSPHATASE 70 U/L (46-116); ANION GAP 5 mmol/L (8-16); ASPARTATE AMINOTRANSFERASE 13 U/L (15-37); BILIRUBIN,TOTAL 0.7 mg/dL (0.1-1.0); CALCIUM, TOTAL 8.6 mg/dL (8.8-10.5); CARBON DIOXIDE 29 mmol/L (22-29); CHLORIDE 106 mmol/L (98-107); CHOL/HDL RATIO 3.4 (4.2-7.3); CHOLESTEROL 134 mg/dL (131-200); CREATININE 0.77 mg/dL (0.60-1.30); FREE T4 (FREE THYROXINE) 1.15 ng/dL (0.76-1.46); GLOMERULAR FILTR. RATE CALC > 60 mL/min (>60); GLUCOSE,RANDOM 110 mg/dL (70-110); HDL CHOLESTEROL 39 mg/dL (40-60); LDL CHOL (CALC.) 71 mg/dL (0-130); POTASSIUM 3.6 mmol/L (3.5-5.1); SODIUM SERUM 140 mmol/L (136-145); TOTAL PROTEIN, SERUM 6.5 g/dL (6.4-8.2); TRIGLYCERIDES 122 mg/dL (15-150); UREA NITROGEN, BLOOD 14 mg/dL (7-18)
[2019-11-20] MEDS ORDERED: NICOTINE 14 MG/24 HOUR PATCH TD PRN (14:15)
[2019-11-20] MEDS ORDERED: MAG HYDROX/AL HYDROX/SIMETH ES 30 ML SUSPENSION UDCUP PO PRN (14:15)
[2019-11-20] MEDS ORDERED: ALBUTEROL SULFATE HFA 90 MCG/PUFF 8 GM INHALER IH PRN (14:15)
[2019-11-20] MEDS ORDERED: ACETAMINOPHEN 325 MG TABLET PO PRN (14:15)
[2019-11-20] MEDS ORDERED: GuaiFENesin/D-METHORPHAN [SUGAR-FREE] 200-20MG/10 ML SYRUP UDCUP PO PRN (14:15)
[2019-11-20] MEDS ORDERED: DOCUSATE SODIUM 100 MG CAPSULE PO PRN (14:15)
[2019-11-20] MEDS ORDERED: IBUPROFEN 400 MG TABLET PO PRN (14:15)
[2019-11-20] MEDS ORDERED: PETROLATUM,WHITE 28 GM JELLY TP PRN (14:15)
[2019-11-20] MEDS ORDERED: LOPERAMIDE HCL 2 MG CAPSULE PO PRN (14:15)
[2019-11-20] MEDS ORDERED: MAGNESIUM HYDROXIDE SUSPENSION 30 ML UDCUP PO PRN (14:15)
[2019-11-20] MEDS ORDERED: ONDANSETRON HCL 4 MG TABLET PO PRN (14:15)
[2019-11-20] MEDS ORDERED: CloNIDine HCL 0.1 MG TABLET PO PRN (14:15)
[2019-11-20 16:07] VITALS: BP 101/60
[2019-11-20] MEDS: RisperiDONE 2 MG TABLET PO SCH (20:04)
[2019-11-21 05:43] VITALS: BP 102/68
[2019-11-21] MEDS: FERROUS SULFATE 325 MG EC TABLET PO SCH ×2 (06:23→17:37)
[2019-11-21 08:44] VITALS: BP 94/40
[2019-11-21] MEDS: OMEGA-3/DHA/EPA/FISH OIL 1,000 MG CAPSULE PO SCH (09:09)
[2019-11-21] MEDS: NICOTINE 14 MG/24 HOUR PATCH TD SCH (09:09)
[2019-11-21 16:19] VITALS: BP 102/62
[2019-11-21] MEDS: RisperiDONE 2 MG TABLET PO SCH (20:55)
[2019-11-21] MEDS: ZOLPIDEM TARTRATE 10 MG TABLET PO PRN (20:55)
[2019-11-22 05:36] VITALS: BP 103/68
[2019-11-22] MEDS: FERROUS SULFATE 325 MG EC TABLET PO SCH ×2 (06:52→16:48)
[2019-11-22] MEDS: OMEGA-3/DHA/EPA/FISH OIL 1,000 MG CAPSULE PO SCH (08:34)
[2019-11-22] MEDS: NICOTINE 14 MG/24 HOUR PATCH TD SCH (08:41)
[2019-11-22 08:44] VITALS: BP 111/96
[2019-11-22 16:21] VITALS: BP 121/60
[2019-11-22] MEDS: LORazepam 2 MG TABLET PO PRN (17:39)
[2019-11-22] MEDS: RisperiDONE 2 MG TABLET PO SCH (20:10)
[2019-11-23 05:37] VITALS: BP 118/62
[2019-11-23] MEDS: FERROUS SULFATE 325 MG EC TABLET PO SCH ×2 (06:29→16:49)
[2019-11-23] MEDS: OMEGA-3/DHA/EPA/FISH OIL 1,000 MG CAPSULE PO SCH (08:21)
[2019-11-23] MEDS: NICOTINE 14 MG/24 HOUR PATCH TD SCH (08:35)
[2019-11-23 09:15] VITALS: BP 102/54
[2019-11-23] MEDS: RisperiDONE 2 MG TABLET PO SCH ×2 (10:14→16:49)
[2019-11-24 01:07] VITALS: BP 131/89
[2019-11-24] MEDS: FERROUS SULFATE 325 MG EC TABLET PO SCH ×2 (06:13→16:24)
[2019-11-24 08:00] VITALS: BP 101/67
[2019-11-24] MEDS: OMEGA-3/DHA/EPA/FISH OIL 1,000 MG CAPSULE PO SCH (08:20)
[2019-11-24] MEDS: RisperiDONE 2 MG TABLET PO SCH ×2 (08:20→16:24)
[2019-11-24] MEDS: NICOTINE 14 MG/24 HOUR PATCH TD SCH (08:21)
[2019-11-24 16:08] VITALS: BP 118/55
[2019-11-24] MEDS: LORazepam 2 MG TABLET PO PRN (17:21)
[2019-11-25 00:16] VITALS: BP 131/90
[2019-11-25] MEDS: FERROUS SULFATE 325 MG EC TABLET PO SCH (06:27)
[2019-11-25] MEDS: RisperiDONE 2 MG TABLET PO SCH (08:24)
[2019-11-25] MEDS: OMEGA-3/DHA/EPA/FISH OIL 1,000 MG CAPSULE PO SCH (08:24)
[2019-11-25] MEDS: NICOTINE 14 MG/24 HOUR PATCH TD SCH (08:25)
[2019-11-25 08:35] VITALS: BP 102/61
[2019-11-25] MEDS ORDERED: RISP2 PO ×2 (11:06→11:18)
== END 2019-11-25 13:25 | disposition home or self-care (01) | DRG 885 ==
LOC: B2S 16:12
PROVIDERS: ADMIT Psychiatry & Neurology Child & Adolescent Psychiatry; ATTEND Psychiatry & Neurology Child & Adolescent Psychiatry
DX: F25.1 Schizoaffective disorder, depressive type (principal); R45.851 Suicidal ideations; D50.9 Iron deficiency anemia, unspecified; F10.10 Alcohol abuse, uncomplicated; F41.9 Anxiety disorder, unspecified; Z91.14 Patient's other noncompliance with medication regimen; Z79.899 Other long term (current) drug therapy
CPT/HCPCS: 84439; 84443; 87081

== ENCOUNTER 2020-01-11 21:44 | Inpatient (IN) | payer MEDICAID ==
[~2020-01-11] VITALS: Ht 167.6 cm; Wt 72.1 kg
[~2020-01-11 21:44] MED LIST changes: -AMOX1TAB15 PO; -ARIP1064 IM; -ESCI10TA61 PO; +RISP2TAB23 PO
[2020-01-11] MEDS ORDERED: RISP2TAB23 PO (22:08)
[2020-01-11] MEDS ORDERED: ZOLPIDEM TARTRATE 10 MG TABLET PO PRN (22:15)
[2020-01-11] MEDS ORDERED: HALOPERIDOL 5 MG TABLET PO PRN (22:15)
[2020-01-11 22:37] VITALS: BP 131/64
[2020-01-12] VITALS: BP 107/98
[2020-01-12 08:07] LABS: BASOPHILS % (AUTO) 0.7 % (0.0-2.0); EOSINOPHILS % (AUTO) 4.2 % (1.0-6.0); HEMATOCRIT 41.9 % (41-53); HEMOGLOBIN 13.6 g/dL (13.5-17.5); LYMPHOCYTES # (AUTO) 1.3 K/uL (1.0-4.8); LYMPHOCYTES % (AUTO) 20.7 % (22.0-44.0); MEAN CORPUSCULAR HEMOGLOBIN 29.1 pg (26.0-34.0); MEAN CORPUSCULAR HGB CONC 32.5 G/dL (31.0-37.0); MEAN CORPUSCULAR VOLUME 89 fL (80-100); MONOCYTES # (AUTO) 0.9 K/uL (0.1-1.0); MONOCYTES % (AUTO) 14.4 % (2.0-9.0); NEUTROPHILS # (AUTO) 3.6 K/uL (1.8-7.7); PLATELET COUNT (AUTO) 230 K/uL (150-450); RED BLOOD CELL COUNT(AUTO) 4.69 MIL/uL (4.50-5.90); RED CELL DISTRIBUTION WIDTH 14.4 % (11.5-14.5)
[2020-01-12 08:11] VITALS: BP 118/88
[2020-01-12 08:19] LABS: HEMOGLOBIN A1C 5.3 % (3.8-5.6)
[2020-01-12 08:46] LABS: ALANINE AMINOTRANSFERASE 522 U/L (12-78); ALBUMIN 3.4 g/dL (3.4-5.0); ALKALINE PHOSPHATASE 116 U/L (46-116); ANION GAP 12 mmol/L (8-16); ASPARTATE AMINOTRANSFERASE 73 U/L (15-37); BILIRUBIN,TOTAL 1.1 mg/dL (0.1-1.0); CALCIUM, TOTAL 8.6 mg/dL (8.8-10.5); CARBON DIOXIDE 24 mmol/L (22-29); CHLORIDE 105 mmol/L (98-107); CHOL/HDL RATIO 3.4 (4.2-7.3); CHOLESTEROL 145 mg/dL (131-200); CREATININE 0.83 mg/dL (0.60-1.30); GLOMERULAR FILTR. RATE CALC > 60 mL/min (>60); GLUCOSE,RANDOM 95 mg/dL (70-110); HDL CHOLESTEROL 43 mg/dL (40-60); LDL CHOL (CALC.) 88 mg/dL (0-130); POTASSIUM 3.8 mmol/L (3.5-5.1); SODIUM SERUM 141 mmol/L (136-145); THYROID STIMULATING HORMONE 2.94 uIU/mL (0.36-3.74); TRIGLYCERIDES 69 mg/dL (15-150); UREA NITROGEN, BLOOD 19 mg/dL (7-18)
[2020-01-12] MEDS ORDERED: MAGNESIUM HYDROXIDE SUSPENSION 30 ML UDCUP PO PRN (13:00)
[2020-01-12] MEDS ORDERED: GuaiFENesin/D-METHORPHAN [SUGAR-FREE] 200-20MG/10 ML SYRUP UDCUP PO PRN (13:00)
[2020-01-12] MEDS ORDERED: ALBUTEROL SULFATE HFA 90 MCG/PUFF 8 GM INHALER IH PRN (13:00)
[2020-01-12] MEDS ORDERED: DOCUSATE SODIUM 100 MG CAPSULE PO PRN (13:00)
[2020-01-12] MEDS ORDERED: ACETAMINOPHEN 325 MG TABLET PO PRN (13:00)
[2020-01-12] MEDS ORDERED: LOPERAMIDE HCL 2 MG CAPSULE PO PRN (13:00)
[2020-01-12] MEDS ORDERED: CloNIDine HCL 0.1 MG TABLET PO PRN (13:00)
[2020-01-12] MEDS ORDERED: MAG HYDROX/AL HYDROX/SIMETH ES 30 ML SUSPENSION UDCUP PO PRN (13:00)
[2020-01-12] MEDS ORDERED: NICOTINE 14 MG/24 HOUR PATCH TD PRN (13:00)
[2020-01-12] MEDS ORDERED: PETROLATUM,WHITE 28 GM JELLY TP PRN (13:00)
[2020-01-12] MEDS ORDERED: ONDANSETRON HCL 4 MG TABLET PO PRN (13:00)
[2020-01-12] MEDS: IBUPROFEN 400 MG TABLET PO PRN (14:00)
[2020-01-12 16:08] VITALS: BP 105/60
[2020-01-12] MEDS: LORazepam 2 MG TABLET PO PRN (17:11)
[2020-01-13 00:52] VITALS: BP 118/75
[2020-01-13 08:16] VITALS: BP 107/60
[2020-01-13] MEDS: RisperiDONE 2 MG TABLET PO SCH ×2 (09:22→16:47)
[2020-01-13 15:51] VITALS: BP 110/70
[2020-01-14 05:46] VITALS: BP 118/75
[2020-01-14] MEDS: LORazepam 2 MG TABLET PO PRN (08:35)
[2020-01-14] MEDS: RisperiDONE 2 MG TABLET PO SCH ×2 (08:35→16:37)
[2020-01-14 08:37] VITALS: BP 116/69
[2020-01-14 16:07] VITALS: BP 100/62
[2020-01-15 03:50] VITALS: BP 110/63
[2020-01-15 08:08] VITALS: BP 131/61
[2020-01-15] MEDS: RisperiDONE 2 MG TABLET PO SCH ×2 (08:16→16:58)
[2020-01-15] MEDS: IBUPROFEN 400 MG TABLET PO PRN (08:17)
[2020-01-15 09:17] VITALS: BP 124/64
[2020-01-15 16:19] VITALS: BP 119/70
[2020-01-16] MEDS: RisperiDONE 2 MG TABLET PO SCH ×2 (08:25→16:28)
[2020-01-16 16:44] VITALS: BP 118/70
[2020-01-16] MEDS: IBUPROFEN 400 MG TABLET PO PRN (16:49)
[2020-01-17 08:19] VITALS: BP 121/75
[2020-01-17] MEDS: RisperiDONE 2 MG TABLET PO SCH ×2 (08:48→16:46)
[2020-01-17] MEDS: LORazepam 2 MG TABLET PO PRN (08:50)
[2020-01-17 16:37] VITALS: BP 112/68
== END 2020-01-17 17:30 | disposition home or self-care (01) | DRG 750 ==
LOC: B3A 22:11
PROVIDERS: ADMIT Psychiatry & Neurology Child & Adolescent Psychiatry; ATTEND Psychiatry & Neurology Psychiatry
DX: F25.1 Schizoaffective disorder, depressive type (principal); R74.0 Nonspecific elevation of levels of transaminase and lactic acid dehydrogenase [LDH]; E78.5 Hyperlipidemia, unspecified; F32.9 Major depressive disorder, single episode, unspecified; R00.0 Tachycardia, unspecified; Z59.0 Homelessness; Z91.19 Patient's noncompliance with other medical treatment and regimen; Z79.899 Other long term (current) drug therapy; S52.92XD Unspecified fracture of left forearm, subsequent encounter for closed fracture with routine healing
CPT/HCPCS: 83036; 84439; 84443; 87081

== ENCOUNTER 2020-03-02 19:09 | Inpatient (IN) | payer MEDICAID ==
[~2020-03-02 19:09] MED LIST changes: -FERR-89 PO; -OMEG-53 PO
[2020-03-02] MEDS ORDERED: HALOPERIDOL 5 MG TABLET PO PRN (20:30)
[2020-03-02] MEDS ORDERED: ZOLPIDEM TARTRATE 10 MG TABLET PO PRN (20:30)
[2020-03-02 21:09] VITALS: BP 103/64
[2020-03-02 23:25] VITALS: BP 113/77
[2020-03-03] MEDS ORDERED: DOCUSATE SODIUM 100 MG CAPSULE PO PRN (06:45)
[2020-03-03] MEDS ORDERED: PETROLATUM,WHITE 28 GM JELLY TP PRN (06:45)
[2020-03-03] MEDS ORDERED: ACETAMINOPHEN 325 MG TABLET PO PRN (06:45)
[2020-03-03] MEDS ORDERED: MAGNESIUM HYDROXIDE SUSPENSION 30 ML UDCUP PO PRN (06:45)
[2020-03-03] MEDS ORDERED: IBUPROFEN 600 MG TABLET PO PRN (06:45)
[2020-03-03] MEDS ORDERED: ALBUTEROL SULFATE HFA 90 MCG/PUFF 8 GM INHALER IH PRN (06:45)
[2020-03-03] MEDS ORDERED: BENZOCAINE/MENTHOL LOZENGE MM PRN (06:45)
[2020-03-03] MEDS ORDERED: LOPERAMIDE HCL 2 MG CAPSULE PO PRN (06:45)
[2020-03-03] MEDS ORDERED: BACITRACIN 28.4 GM OINTMENT TP PRN (06:45)
[2020-03-03] MEDS ORDERED: ONDANSETRON HCL 4 MG TABLET PO PRN (06:45)
[2020-03-03] MEDS ORDERED: CloNIDine HCL 0.1 MG TABLET PO PRN (06:45)
[2020-03-03] MEDS ORDERED: OMEPRAZOLE 20 MG CAPSULE PO PRN (06:45)
[2020-03-03] MEDS ORDERED: MAG HYDROX/AL HYDROX/SIMETH ES 30 ML SUSPENSION UDCUP PO PRN (06:45)
[2020-03-03 08:04] LABS: BASOPHILS % (AUTO) 0.6 % (0.0-2.0); EOSINOPHILS % (AUTO) 4.3 % (1.0-6.0); HEMATOCRIT 37.4 % (41-53); HEMOGLOBIN 12.5 g/dL (13.5-17.5); LYMPHOCYTES # (AUTO) 1.6 K/uL (1.0-4.8); LYMPHOCYTES % (AUTO) 26.1 % (22.0-44.0); MEAN CORPUSCULAR HEMOGLOBIN 29.8 pg (26.0-34.0); MEAN CORPUSCULAR HGB CONC 33.6 G/dL (31.0-37.0); MEAN CORPUSCULAR VOLUME 89 fL (80-100); MONOCYTES # (AUTO) 0.8 K/uL (0.1-1.0); MONOCYTES % (AUTO) 13.3 % (2.0-9.0); NEUTROPHILS # (AUTO) 3.3 K/uL (1.8-7.7); NEUTROPHILS % (AUTO) 55.7 % (40.0-70.0); PLATELET COUNT (AUTO) 259 K/uL (150-450); RED BLOOD CELL COUNT(AUTO) 4.21 MIL/uL (4.50-5.90); RED CELL DISTRIBUTION WIDTH 14.1 % (11.5-14.5)
[2020-03-03] MEDS: BACITRACIN 28.4 GM OINTMENT TP SCH ×2 (08:18→16:49)
[2020-03-03] MEDS: LORazepam 1 MG TABLET PO PRN (08:18)
[2020-03-03 08:28] LABS: ALANINE AMINOTRANSFERASE 153 U/L (12-78); ALBUMIN 3.7 g/dL (3.4-5.0); ALKALINE PHOSPHATASE 137 U/L (46-116); ANION GAP 7 mmol/L (8-16); ASPARTATE AMINOTRANSFERASE 35 U/L (15-37); BILIRUBIN,TOTAL 0.8 mg/dL (0.1-1.0); CALCIUM, TOTAL 8.7 mg/dL (8.8-10.5); CARBON DIOXIDE 29 mmol/L (22-29); CHLORIDE 102 mmol/L (98-107); CHOL/HDL RATIO 3.5 (4.2-7.3); CHOLESTEROL 162 mg/dL (131-200); CREATININE 0.89 mg/dL (0.60-1.30); GLOMERULAR FILTR. RATE CALC > 60 mL/min (>60); GLUCOSE,RANDOM 82 mg/dL (70-110); HDL CHOLESTEROL 46 mg/dL (40-60); LDL CHOL (CALC.) 104 mg/dL (0-130); POTASSIUM 3.7 mmol/L (3.5-5.1); SODIUM SERUM 138 mmol/L (136-145); THYROID STIMULATING HORMONE 2.67 uIU/mL (0.36-3.74); TOTAL PROTEIN, SERUM 7.8 g/dL (6.4-8.2); TRIGLYCERIDES 59 mg/dL (15-150); UREA NITROGEN, BLOOD 19 mg/dL (7-18)
[2020-03-03 16:41] VITALS: BP 101/69
[2020-03-04 01:08] VITALS: BP 109/67
[2020-03-04 08:30] VITALS: BP 103/76
[2020-03-04] MEDS: BACITRACIN 28.4 GM OINTMENT TP SCH ×2 (09:10→16:26)
[2020-03-04] MEDS: LORazepam 1 MG TABLET PO PRN (13:17)
[2020-03-04 16:09] VITALS: BP 100/62
[2020-03-04] MEDS: OLANZapine 10 MG TABLET PO SCH (20:10)
[2020-03-05 01:16] VITALS: BP 106/62
[2020-03-05 09:30] VITALS: BP 107/60
[2020-03-05] MEDS: BACITRACIN 28.4 GM OINTMENT TP SCH ×2 (09:51→17:42)
[2020-03-05 16:05] VITALS: BP 108/64
[2020-03-05] MEDS: OLANZapine 10 MG TABLET PO SCH (20:14)
[2020-03-06 00:53] VITALS: BP 120/75
[2020-03-06 08:58] VITALS: BP 96/60
[2020-03-06] MEDS: BACITRACIN 28.4 GM OINTMENT TP SCH ×2 (09:30→17:29)
[2020-03-06 16:02] VITALS: BP 109/68
[2020-03-06] MEDS: OLANZapine 10 MG TABLET PO SCH (20:31)
[2020-03-07 00:06] VITALS: BP 103/62
[2020-03-07 08:21] VITALS: BP 114/67
[2020-03-07] MEDS: BACITRACIN 28.4 GM OINTMENT TP SCH ×2 (08:34→16:50)
[2020-03-07 16:00] VITALS: BP 129/73
[2020-03-07] MEDS: OLANZapine 10 MG TABLET PO SCH (20:02)
[2020-03-07] MEDS: LORazepam 1 MG TABLET PO PRN (22:50)
[2020-03-08] MEDS ORDERED: OLAN10TA3 PO (07:57)
[2020-03-08] MEDS: BACITRACIN 28.4 GM OINTMENT TP SCH (08:53)
== END 2020-03-08 12:30 | disposition home or self-care (01) | DRG 885 ==
LOC: EDSTATUS 19:16 → B2S 21:00
PROVIDERS: ADMIT Psychiatry & Neurology Psychiatry; ATTEND Psychiatry & Neurology Psychiatry
DX: F25.9 Schizoaffective disorder, unspecified (principal); E78.5 Hyperlipidemia, unspecified; G47.00 Insomnia, unspecified; K59.00 Constipation, unspecified; F41.9 Anxiety disorder, unspecified
CPT/HCPCS: 84443; 87081

== ENCOUNTER 2020-03-10 16:23 | Inpatient (IN) | payer MEDICAID ==
[~2020-03-10] VITALS: Ht 167.6 cm; Wt 67.4 kg
[~2020-03-10 16:23] MED LIST changes: +OLAN10TA3 PO; -RISP2TAB23 PO
[2020-03-10 16:38] VITALS: BP 117/77
[2020-03-10] MEDS ORDERED: ZOLPIDEM TARTRATE 10 MG TABLET PO PRN (16:45)
[2020-03-10 17:31] VITALS: BP_SYST 115; BP_DIAS 7; BP_DIAS 78
[2020-03-10] MEDS ORDERED: PNEUMOCOCCAL VACCINE POLYVALENT 0.5 ML VIAL [PPSV23] IM ONE (17:45)
[2020-03-11 01:15] VITALS: BP 110/74
[2020-03-11] MEDS: LORazepam 2 MG TABLET PO PRN (01:18)
[2020-03-11 06:59] LABS: EOSINOPHILS % (AUTO) 4.2 % (1.0-6.0); HEMATOCRIT 37.2 % (41-53); HEMOGLOBIN 12.5 g/dL (13.5-17.5); LYMPHOCYTES # (AUTO) 1.6 K/uL (1.0-4.8); LYMPHOCYTES % (AUTO) 33.4 % (22.0-44.0); MEAN CORPUSCULAR HEMOGLOBIN 29.5 pg (26.0-34.0); MEAN CORPUSCULAR HGB CONC 33.6 G/dL (31.0-37.0); MEAN CORPUSCULAR VOLUME 88 fL (80-100); MONOCYTES # (AUTO) 0.7 K/uL (0.1-1.0); MONOCYTES % (AUTO) 15.5 % (2.0-9.0); NEUTROPHILS # (AUTO) 2.2 K/uL (1.8-7.7); NEUTROPHILS % (AUTO) 45.9 % (40.0-70.0); PLATELET COUNT (AUTO) 275 K/uL (150-450); RED BLOOD CELL COUNT(AUTO) 4.24 MIL/uL (4.50-5.90); RED CELL DISTRIBUTION WIDTH 14.2 % (11.5-14.5)
[2020-03-11 07:27] LABS: ALANINE AMINOTRANSFERASE 825 U/L (12-78); ALBUMIN 3.9 g/dL (3.4-5.0); ALKALINE PHOSPHATASE 141 U/L (46-116); ANION GAP 7 mmol/L (8-16); ASPARTATE AMINOTRANSFERASE 210 U/L (15-37); BILIRUBIN,TOTAL 0.8 mg/dL (0.1-1.0); CALCIUM, TOTAL 8.9 mg/dL (8.8-10.5); CARBON DIOXIDE 27 mmol/L (22-29); CHLORIDE 101 mmol/L (98-107); CHOL/HDL RATIO 2.9 (4.2-7.3); CHOLESTEROL 168 mg/dL (131-200); CREATININE 0.93 mg/dL (0.60-1.30); FREE T4 (FREE THYROXINE) 1.33 ng/dL (0.76-1.46); GLOMERULAR FILTR. RATE CALC > 60 mL/min (>60); GLUCOSE,RANDOM 91 mg/dL (70-110); HDL CHOLESTEROL 57 mg/dL (40-60); LDL CHOL (CALC.) 93 mg/dL (0-130); POTASSIUM 3.8 mmol/L (3.5-5.1); SODIUM SERUM 135 mmol/L (136-145); THYROID STIMULATING HORMONE 4.89 uIU/mL (0.36-3.74); TOTAL PROTEIN, SERUM 7.8 g/dL (6.4-8.2); TRIGLYCERIDES 90 mg/dL (15-150); UREA NITROGEN, BLOOD 20 mg/dL (7-18)
[2020-03-11] MEDS ORDERED: MAG HYDROX/AL HYDROX/SIMETH ES 30 ML SUSPENSION UDCUP PO PRN (07:30)
[2020-03-11] MEDS ORDERED: MAGNESIUM HYDROXIDE SUSPENSION 30 ML UDCUP PO PRN (07:30)
[2020-03-11] MEDS ORDERED: CloNIDine HCL 0.1 MG TABLET PO PRN (07:30)
[2020-03-11] MEDS ORDERED: BENZOCAINE/MENTHOL LOZENGE MM PRN (07:30)
[2020-03-11] MEDS ORDERED: LOPERAMIDE HCL 2 MG CAPSULE PO PRN (07:30)
[2020-03-11] MEDS ORDERED: OMEPRAZOLE 20 MG CAPSULE PO PRN (07:30)
[2020-03-11] MEDS ORDERED: BACITRACIN 28.4 GM OINTMENT TP PRN (07:30)
[2020-03-11] MEDS ORDERED: DOCUSATE SODIUM 100 MG CAPSULE PO PRN (07:30)
[2020-03-11] MEDS ORDERED: PETROLATUM,WHITE 28 GM JELLY TP PRN (07:30)
[2020-03-11] MEDS ORDERED: ONDANSETRON HCL 4 MG TABLET PO PRN (07:30)
[2020-03-11] MEDS ORDERED: IBUPROFEN 600 MG TABLET PO PRN (07:30)
[2020-03-11] MEDS ORDERED: ACETAMINOPHEN 325 MG TABLET PO PRN (07:30)
[2020-03-11] MEDS ORDERED: ALBUTEROL SULFATE HFA 90 MCG/PUFF 8 GM INHALER IH PRN (07:30)
[2020-03-11 09:25] VITALS: BP 109/61
[2020-03-11 17:43] VITALS: BP 119/63
[2020-03-12 04:16] VITALS: BP 106/60
[2020-03-12 08:53] VITALS: BP 127/83
[2020-03-12 16:09] VITALS: BP 110/66
[2020-03-12] MEDS: LORazepam 2 MG TABLET PO PRN (17:23)
[2020-03-12] MEDS: HALOPERIDOL 5 MG TABLET PO PRN (21:57)
[2020-03-13 06:15] VITALS: BP 116/70
[2020-03-13 08:30] VITALS: BP 118/74
[2020-03-13 16:05] VITALS: BP 102/70
[2020-03-13] MEDS: HALOPERIDOL 5 MG TABLET PO PRN (20:42)
[2020-03-13] MEDS ORDERED: OLANZapine 10 MG TABLET PO SCH (21:00)
[2020-03-14 03:13] VITALS: BP 109/67
== END 2020-03-14 10:40 | disposition home or self-care (01) | DRG 885 ==
LOC: B2S 16:37
PROVIDERS: ADMIT Psychiatry & Neurology Psychiatry; ATTEND Psychiatry & Neurology Psychiatry
DX: F25.9 Schizoaffective disorder, unspecified (principal); R45.851 Suicidal ideations; E78.5 Hyperlipidemia, unspecified; F41.9 Anxiety disorder, unspecified; G47.00 Insomnia, unspecified; K59.00 Constipation, unspecified; F19.10 Other psychoactive substance abuse, uncomplicated; Z91.5 Personal history of self-harm; Z87.891 Personal history of nicotine dependence
CPT/HCPCS: 84439; 84443; 87081

== ENCOUNTER 2020-05-07 22:36 | Inpatient (IN) | payer MEDICAID ==
[~2020-05-07] VITALS: Ht 170.2 cm; Wt 66.2 kg
[2020-05-07] MEDS ORDERED: OLANZapine 5 MG RAPDIS TABLET PO PRN (23:15)
[2020-05-07] MEDS ORDERED: LORazepam 2 MG TABLET PO PRN (23:15)
[2020-05-07] MEDS ORDERED: ZOLPIDEM TARTRATE 10 MG TABLET PO PRN (23:15)
[2020-05-08 04:00] VITALS: BP 115/79
[2020-05-08 07:58] LABS: BASOPHILS % (AUTO) 0.2 % (0.0-2.0); EOSINOPHILS % (AUTO) 4.3 % (1.0-6.0); HEMATOCRIT 39.2 % (41-53); HEMOGLOBIN 13.2 g/dL (13.5-17.5); LYMPHOCYTES # (AUTO) 1.4 K/uL (1.0-4.8); LYMPHOCYTES % (AUTO) 24.2 % (22.0-44.0); MEAN CORPUSCULAR HEMOGLOBIN 28.9 pg (26.0-34.0); MEAN CORPUSCULAR HGB CONC 33.6 G/dL (31.0-37.0); MEAN CORPUSCULAR VOLUME 86 fL (80-100); MONOCYTES # (AUTO) 0.8 K/uL (0.1-1.0); MONOCYTES % (AUTO) 14.1 % (2.0-9.0); NEUTROPHILS # (AUTO) 3.3 K/uL (1.8-7.7); NEUTROPHILS % (AUTO) 57.2 % (40.0-70.0); PLATELET COUNT (AUTO) 224 K/uL (150-450); RED BLOOD CELL COUNT(AUTO) 4.55 MIL/uL (4.50-5.90); RED CELL DISTRIBUTION WIDTH 15.1 % (11.5-14.5)
[2020-05-08 08:27] VITALS: BP 110/66
[2020-05-08 08:27] LABS: ALANINE AMINOTRANSFERASE 331 U/L (12-78); ALBUMIN 3.5 g/dL (3.4-5.0); ALKALINE PHOSPHATASE 96 U/L (46-116); ANION GAP 8 mmol/L (8-16); ASPARTATE AMINOTRANSFERASE 92 U/L (15-37); BILIRUBIN,TOTAL 0.6 mg/dL (0.1-1.0); CARBON DIOXIDE 27 mmol/L (22-29); CHLORIDE 104 mmol/L (98-107); CHOLESTEROL 149 mg/dL (131-200); CREATININE 0.76 mg/dL (0.60-1.30); FREE T4 (FREE THYROXINE) 1.23 ng/dL (0.76-1.46); GLOMERULAR FILTR. RATE CALC > 60 mL/min (>60); GLUCOSE,RANDOM 88 mg/dL (70-110); HDL CHOLESTEROL 50 mg/dL (40-60); LDL CHOL (CALC.) 81 mg/dL (0-130); POTASSIUM 3.8 mmol/L (3.5-5.1); SODIUM SERUM 139 mmol/L (136-145); THYROID STIMULATING HORMONE 3.16 uIU/mL (0.36-3.74); TOTAL PROTEIN, SERUM 6.9 g/dL (6.4-8.2); TRIGLYCERIDES 89 mg/dL (15-150); UREA NITROGEN, BLOOD 16 mg/dL (7-18)
[2020-05-08 09:24] LABS: HEMOGLOBIN A1C 5.5 % (3.8-5.6)
[2020-05-08] MEDS ORDERED: LOPERAMIDE HCL 2 MG CAPSULE PO PRN (11:00)
[2020-05-08] MEDS ORDERED: MAG HYDROX/AL HYDROX/SIMETH ES 30 ML SUSPENSION UDCUP PO PRN (11:00)
[2020-05-08] MEDS ORDERED: PROMETHAZINE HCL 25 MG TABLET PO PRN (11:00)
[2020-05-08] MEDS ORDERED: MAGNESIUM HYDROXIDE SUSPENSION 30 ML UDCUP PO PRN (11:00)
[2020-05-08] MEDS ORDERED: HydrOXYzine PAMOATE 50 MG CAPSULE PO PRN (11:00)
[2020-05-08] MEDS ORDERED: TUBERCULIN, PURIFIED PROTEIN DERIVATIVE 5 TU/0.1 ML SYRINGE ID ONE (11:00)
[2020-05-08] MEDS ORDERED: GuaiFENesin/D-METHORPHAN [SUGAR-FREE] 200-20MG/10 ML SYRUP UDCUP PO PRN (11:00)
[2020-05-08] MEDS ORDERED: ACETAMINOPHEN 325 MG TABLET PO PRN (11:00)
[2020-05-08] MEDS ORDERED: PALIPERIDONE PALMITATE 234 MG/1.5 ML SYRINGE IM ONE (15:00)
[2020-05-08 16:18] VITALS: BP 122/60
[2020-05-08] MEDS: THIAMINE 100 MG TABLET PO SCH (16:34)
[2020-05-08] MEDS ORDERED: OLANZapine 7.5 MG TABLET PO SCH (21:00)
[2020-05-09 07:14] VITALS: BP 125/64
[2020-05-09 08:06] VITALS: BP 114/69
[2020-05-09] MEDS: MULTIVITAMINS WITH MINERALS, THERAPEUTIC TABLET PO SCH (08:18)
[2020-05-09] MEDS: FOLIC ACID 1 MG TABLET PO SCH (08:18)
[2020-05-09] MEDS: OMEGA-3/DHA/EPA/FISH OIL 1,000 MG CAPSULE PO SCH (08:18)
[2020-05-09] MEDS: THIAMINE 100 MG TABLET PO SCH ×2 (08:18→16:07)
[2020-05-09] MEDS: NALTREXONE HCL 50 MG TABLET PO SCH (08:18)
[2020-05-09] MEDS ORDERED: PALIPERIDONE 3 MG ER TABLET PO PRN (15:00)
[2020-05-09 16:11] VITALS: BP 100/65
[2020-05-09] MEDS ORDERED: PredniSONE 10 MG TABLET PO ONE (20:00)
[2020-05-10 05:37] VITALS: BP 111/60
[2020-05-10 08:23] VITALS: BP 116/63
[2020-05-10] MEDS ORDERED: PENICILLIN G BENZATHINE LA 2,400,000 UNITS/4 ML SYRINGE IM SCH (09:00)
[2020-05-10] MEDS: MULTIVITAMINS WITH MINERALS, THERAPEUTIC TABLET PO SCH (10:31)
[2020-05-10] MEDS: NALTREXONE HCL 50 MG TABLET PO SCH (10:31)
[2020-05-10] MEDS: OMEGA-3/DHA/EPA/FISH OIL 1,000 MG CAPSULE PO SCH (10:31)
[2020-05-10] MEDS: FOLIC ACID 1 MG TABLET PO SCH (10:31)
[2020-05-10] MEDS: THIAMINE 100 MG TABLET PO SCH ×2 (10:32→16:39)
[2020-05-10 16:04] VITALS: BP 114/68
[2020-05-11 02:53] VITALS: BP 103/65
[2020-05-11 08:12] LABS: ALANINE AMINOTRANSFERASE 440 U/L (12-78); ALBUMIN 3.1 g/dL (3.4-5.0); ALKALINE PHOSPHATASE 83 U/L (46-116); ANION GAP 8 mmol/L (8-16); ASPARTATE AMINOTRANSFERASE 140 U/L (15-37); BILIRUBIN,TOTAL 0.3 mg/dL (0.1-1.0); CARBON DIOXIDE 27 mmol/L (22-29); CHLORIDE 104 mmol/L (98-107); CREATININE 0.76 mg/dL (0.60-1.30); GLOMERULAR FILTR. RATE CALC > 60 mL/min (>60); GLUCOSE,RANDOM 89 mg/dL (70-110); SODIUM SERUM 139 mmol/L (136-145); TOTAL PROTEIN, SERUM 6.3 g/dL (6.4-8.2); UREA NITROGEN, BLOOD 17 mg/dL (7-18)
[2020-05-11] MEDS: THIAMINE 100 MG TABLET PO SCH ×2 (08:39→16:05)
[2020-05-11] MEDS: OMEGA-3/DHA/EPA/FISH OIL 1,000 MG CAPSULE PO SCH (08:39)
[2020-05-11] MEDS: FOLIC ACID 1 MG TABLET PO SCH (08:40)
[2020-05-11] MEDS: MULTIVITAMINS WITH MINERALS, THERAPEUTIC TABLET PO SCH (08:40)
[2020-05-11] MEDS: NALTREXONE HCL 50 MG TABLET PO SCH (08:40)
[2020-05-11 08:56] VITALS: BP 113/63
[2020-05-11] MEDS ORDERED: FLUoxetine HCL 20 MG CAPSULE PO SCH (09:00)
[2020-05-11 16:01] VITALS: BP 108/62
[2020-05-12 06:35] VITALS: BP 126/77
[2020-05-12 08:42] VITALS: BP 106/51
[2020-05-12] MEDS: NALTREXONE HCL 50 MG TABLET PO SCH (08:42)
[2020-05-12] MEDS: OMEGA-3/DHA/EPA/FISH OIL 1,000 MG CAPSULE PO SCH (08:42)
[2020-05-12] MEDS: MULTIVITAMINS WITH MINERALS, THERAPEUTIC TABLET PO SCH (08:42)
[2020-05-12] MEDS: FOLIC ACID 1 MG TABLET PO SCH (08:42)
[2020-05-12] MEDS: THIAMINE 100 MG TABLET PO SCH ×2 (08:43→16:31)
[2020-05-12] MEDS: FLUoxetine HCL 20 MG CAPSULE PO SCH (08:43)
[2020-05-12] MEDS ORDERED: PALIPERIDONE PALMITATE 156 MG/ML SYRINGE IM ONE (09:00)
[2020-05-12 16:09] VITALS: BP 122/85
[2020-05-13 05:47] VITALS: BP 119/70
[2020-05-13] MEDS ORDERED: NALT50TA6 PO (08:38)
[2020-05-13] MEDS ORDERED: FLUO-191 PO (08:38)
[2020-05-13] MEDS: FLUoxetine HCL 20 MG CAPSULE PO SCH (09:21)
[2020-05-13] MEDS: MULTIVITAMINS WITH MINERALS, THERAPEUTIC TABLET PO SCH (09:21)
[2020-05-13] MEDS: NALTREXONE HCL 50 MG TABLET PO SCH (09:21)
[2020-05-13] MEDS: FOLIC ACID 1 MG TABLET PO SCH (09:21)
[2020-05-13] MEDS: THIAMINE 100 MG TABLET PO SCH ×2 (09:21→16:09)
[2020-05-13] MEDS: OMEGA-3/DHA/EPA/FISH OIL 1,000 MG CAPSULE PO SCH (09:21)
[2020-05-13 09:36] VITALS: BP 112/65
[2020-05-13 16:04] VITALS: BP 115/66
== END 2020-05-13 18:00 | disposition home or self-care (01) | DRG 751 ==
LOC: B3A 23:07 → B2S 05-08 09:02
PROVIDERS: ADMIT Psychiatry & Neurology Psychiatry; ATTEND Psychiatry & Neurology Psychiatry
DX: F33.2 Major depressive disorder, recurrent severe without psychotic features (principal); D64.9 Anemia, unspecified; E78.00 Pure hypercholesterolemia, unspecified; E78.5 Hyperlipidemia, unspecified; R74.01 Elevation of levels of liver transaminase levels; F20.9 Schizophrenia, unspecified; R45.851 Suicidal ideations; F17.200 Nicotine dependence, unspecified, uncomplicated; F41.9 Anxiety disorder, unspecified; Z91.5 Personal history of self-harm; Z79.899 Other long term (current) drug therapy
CPT/HCPCS: 83036; 84439; 84443; 86592; 86593; 86780; J0561

== ENCOUNTER 2020-05-08 00:22 | Emergency (ER) | payer MEDICAID, OTHER ==
[~2020-05-08] VITALS: Ht 172.7 cm; Wt 66.7 kg
[2020-05-08 01:42] LABS: COVID AG,FIA SOURCE NASOPHARYNGEAL
[2020-05-08 03:46] VITALS: BP 102/61
== END 2020-05-08 02:43 | disposition other institution (70) ==
LOC: EMS 00:22
DX: Z11.59 Encounter for screening for other viral diseases (principal); F31.9 Bipolar disorder, unspecified; F20.9 Schizophrenia, unspecified; F41.9 Anxiety disorder, unspecified; F12.90 Cannabis use, unspecified, uncomplicated; F15.90 Other stimulant use, unspecified, uncomplicated
CPT/HCPCS: 87426

== ENCOUNTER 2020-07-16 16:20 | Inpatient (IN) | payer MEDICAID ==
[~2020-07-16] VITALS: Ht 170.2 cm; Wt 76.3 kg
[~2020-07-16 16:20] MED LIST changes: +FLUO-191 PO; +NALT50TA6 PO; -OLAN10TA3 PO
[2020-07-16] MEDS ORDERED: ZOLPIDEM TARTRATE 10 MG TABLET PO PRN (22:00)
[2020-07-16] MEDS ORDERED: PROMETHAZINE HCL 25 MG TABLET PO PRN (22:00)
[2020-07-16] MEDS ORDERED: MAG HYDROX/AL HYDROX/SIMETH ES 30 ML SUSPENSION UDCUP PO PRN (22:00)
[2020-07-16] MEDS ORDERED: GuaiFENesin/D-METHORPHAN [SUGAR-FREE] 200-20MG/10 ML SYRUP UDCUP PO PRN (22:00)
[2020-07-16] MEDS ORDERED: MAGNESIUM HYDROXIDE SUSPENSION 30 ML UDCUP PO PRN (22:00)
[2020-07-16] MEDS ORDERED: LOPERAMIDE HCL 2 MG CAPSULE PO PRN (22:00)
[2020-07-16] MEDS ORDERED: PALIPERIDONE 1.5 MG ER TABLET PO PRN (22:00)
[2020-07-16] MEDS ORDERED: HydrOXYzine PAMOATE 50 MG CAPSULE PO PRN (22:00)
[2020-07-16] MEDS ORDERED: LORazepam 2 MG TABLET PO PRN (22:00)
[2020-07-16] MEDS ORDERED: ACETAMINOPHEN 325 MG TABLET PO PRN (22:00)
[2020-07-16] MEDS ORDERED: INFLUENZA VIRUS VACCINE QVS 2020-21 (6MO+)/PF 60 MCG/0.5 ML SYRINGE IM ONE (22:45)
[2020-07-16 23:12] VITALS: BP 128/78
[2020-07-17 05:40] VITALS: BP 118/74
[2020-07-17 07:45] LABS: BASOPHILS % (AUTO) 0.8 % (0.0-2.0); EOSINOPHILS % (AUTO) 4.2 % (1.0-6.0); HEMATOCRIT 39.2 % (41-53); HEMOGLOBIN 13.2 g/dL (13.5-17.5); LYMPHOCYTES # (AUTO) 1.2 K/uL (1.0-4.8); LYMPHOCYTES % (AUTO) 25.9 % (22.0-44.0); MEAN CORPUSCULAR HGB CONC 33.6 G/dL (31.0-37.0); MEAN CORPUSCULAR VOLUME 89 fL (80-100); MONOCYTES # (AUTO) 0.6 K/uL (0.1-1.0); MONOCYTES % (AUTO) 13.6 % (2.0-9.0); NEUTROPHILS # (AUTO) 2.6 K/uL (1.8-7.7); NEUTROPHILS % (AUTO) 55.5 % (40.0-70.0); PLATELET COUNT (AUTO) 226 K/uL (150-450); RED BLOOD CELL COUNT(AUTO) 4.39 MIL/uL (4.50-5.90); RED CELL DISTRIBUTION WIDTH 16.3 % (11.5-14.5)
[2020-07-17 07:59] LABS: HEMOGLOBIN A1C 5.2 % (3.8-5.6)
[2020-07-17 08:08] LABS: ALANINE AMINOTRANSFERASE 539 U/L (12-78); ALBUMIN 3.5 g/dL (3.4-5.0); ALKALINE PHOSPHATASE 97 U/L (46-116); ANION GAP 4 mmol/L (8-16); ASPARTATE AMINOTRANSFERASE 160 U/L (15-37); BILIRUBIN,TOTAL 0.9 mg/dL (0.1-1.0); CALCIUM, TOTAL 8.6 mg/dL (8.8-10.5); CARBON DIOXIDE 26 mmol/L (22-29); CHLORIDE 105 mmol/L (98-107); CHOL/HDL RATIO 3.2 (4.2-7.3); CHOLESTEROL 152 mg/dL (131-200); CREATININE 0.85 mg/dL (0.60-1.30); FREE T4 (FREE THYROXINE) 1.29 ng/dL (0.76-1.46); GLOMERULAR FILTR. RATE CALC > 60 mL/min (>60); GLUCOSE,RANDOM 90 mg/dL (70-110); HDL CHOLESTEROL 48 mg/dL (40-60); LDL CHOL (CALC.) 88 mg/dL (0-130); POTASSIUM 3.6 mmol/L (3.5-5.1); SODIUM SERUM 135 mmol/L (136-145); TOTAL PROTEIN, SERUM 7.5 g/dL (6.4-8.2); TRIGLYCERIDES 79 mg/dL (15-150); UREA NITROGEN, BLOOD 16 mg/dL (7-18)
[2020-07-17] MEDS: FOLIC ACID 1 MG TABLET PO SCH (08:31)
[2020-07-17] MEDS: OMEGA-3/DHA/EPA/FISH OIL 1,000 MG CAPSULE PO SCH (08:31)
[2020-07-17] MEDS: FLUoxetine HCL 20 MG CAPSULE PO SCH (08:31)
[2020-07-17] MEDS: NALTREXONE HCL 50 MG TABLET PO SCH (08:31)
[2020-07-17] MEDS: MULTIVITAMINS WITH MINERALS, THERAPEUTIC TABLET PO SCH (08:31)
[2020-07-17] MEDS: THIAMINE 100 MG TABLET PO SCH ×2 (08:31→16:50)
[2020-07-17] MEDS ORDERED: PALIPERIDONE PALMITATE 234 MG/1.5 ML SYRINGE IM ONE (09:00)
[2020-07-17] MEDS ORDERED: PENICILLIN G BENZATHINE LA 2,400,000 UNITS/4 ML SYRINGE IM SCH (09:00)
[2020-07-17] MEDS: PredniSONE 20 MG TABLET PO SCH (11:40)
[2020-07-17 12:34] VITALS: BP 112/65
[2020-07-17] MEDS ORDERED: DIAZEPAM 10 MG TABLET PO ONE (15:45)
[2020-07-17] MEDS ORDERED: DIAZEPAM 10 MG TABLET PO PRN (15:45)
[2020-07-17] MEDS ORDERED: LORazepam 2 MG TABLET PO PRN (15:45)
[2020-07-17 16:25] VITALS: BP 105/61
[2020-07-17 16:30] VITALS: BP 105/61
[2020-07-17] MEDS: PALIPERIDONE 3 MG ER TABLET PO SCH (20:43)
[2020-07-18 00:31] VITALS: BP 114/68
[2020-07-18] MEDS ORDERED: DIAZEPAM 10 MG TABLET PO PRN (07:00)
[2020-07-18] MEDS: DIAZEPAM 10 MG TABLET PO SCH ×4 (09:29→20:59)
[2020-07-18] MEDS: FOLIC ACID 1 MG TABLET PO SCH (09:30)
[2020-07-18] MEDS: THIAMINE 100 MG TABLET PO SCH ×2 (09:30→16:37)
[2020-07-18] MEDS: PredniSONE 20 MG TABLET PO SCH (09:30)
[2020-07-18] MEDS: MULTIVITAMINS WITH MINERALS, THERAPEUTIC TABLET PO SCH (09:31)
[2020-07-18] MEDS: NALTREXONE HCL 50 MG TABLET PO SCH (09:31)
[2020-07-18] MEDS: FLUoxetine HCL 20 MG CAPSULE PO SCH (09:31)
[2020-07-18] MEDS: OMEGA-3/DHA/EPA/FISH OIL 1,000 MG CAPSULE PO SCH (09:31)
[2020-07-18] MEDS ORDERED: PALIPERIDONE PALMITATE 234 MG/1.5 ML SYRINGE IM ONE (15:45)
[2020-07-18 16:10] VITALS: BP 103/66
[2020-07-18] MEDS: PALIPERIDONE 3 MG ER TABLET PO SCH (20:59)
[2020-07-19 04:40] VITALS: BP 123/79
[2020-07-19 08:11] VITALS: BP 135/82
[2020-07-19 09:45] VITALS: BP 135/82
[2020-07-19] MEDS: MULTIVITAMINS WITH MINERALS, THERAPEUTIC TABLET PO SCH (09:48)
[2020-07-19] MEDS: FOLIC ACID 1 MG TABLET PO SCH (09:48)
[2020-07-19] MEDS: FLUoxetine HCL 20 MG CAPSULE PO SCH (09:48)
[2020-07-19] MEDS: NALTREXONE HCL 50 MG TABLET PO SCH (09:48)
[2020-07-19] MEDS: PredniSONE 20 MG TABLET PO SCH (09:48)
[2020-07-19] MEDS: OMEGA-3/DHA/EPA/FISH OIL 1,000 MG CAPSULE PO SCH (09:48)
[2020-07-19] MEDS: THIAMINE 100 MG TABLET PO SCH ×2 (09:49→16:22)
[2020-07-19] MEDS: DIAZEPAM 10 MG TABLET PO SCH ×2 (09:49→12:21)
[2020-07-19] MEDS ORDERED: FLUO-191 PO (15:21)
[2020-07-19] MEDS ORDERED: OMEG-135 PO (15:21)
[2020-07-19] MEDS ORDERED: NALT50TA PO (15:21)
[2020-07-19] MEDS ORDERED: PALI117D IM (15:23)
[2020-07-20] MEDS ORDERED: DIAZEPAM 5 MG TABLET PO PRN (07:00)
[2020-07-20] MEDS ORDERED: DIAZEPAM 5 MG TABLET PO SCH (09:00)
[2020-07-21] MEDS ORDERED: DIAZEPAM 5 MG TABLET PO PRN (07:00)
[2020-07-21] MEDS ORDERED: PALIPERIDONE PALMITATE 156 MG/ML SYRINGE IM ONE (09:00)
[2020-07-22] MEDS ORDERED: PALIPERIDONE PALMITATE 156 MG/ML SYRINGE IM ONE (09:00)
[2020-07-23] MEDS ORDERED: PredniSONE 20 MG TABLET PO SCH (09:00)
== END 2020-07-19 16:20 | disposition home or self-care (01) | DRG 750 ==
LOC: B3A 22:15
PROVIDERS: ADMIT Psychiatry & Neurology Psychiatry; ATTEND Psychiatry & Neurology Psychiatry
DX: F25.9 Schizoaffective disorder, unspecified (principal); E78.00 Pure hypercholesterolemia, unspecified; J44.9 Chronic obstructive pulmonary disease, unspecified; R74.01 Elevation of levels of liver transaminase levels; F17.200 Nicotine dependence, unspecified, uncomplicated; Z91.19 Patient's noncompliance with other medical treatment and regimen; Z91.5 Personal history of self-harm; D64.9 Anemia, unspecified; F19.10 Other psychoactive substance abuse, uncomplicated; F32.9 Major depressive disorder, single episode, unspecified; R79.89 Other specified abnormal findings of blood chemistry; A53.9 Syphilis, unspecified; F12.90 Cannabis use, unspecified, uncomplicated; S51.811A Laceration without foreign body of right forearm, initial encounter; X78.1XXA Intentional self-harm by knife, initial encounter; Y93.89 Activity, other specified; Y92.89 Other specified places as the place of occurrence of the external cause; Y99.8 Other external cause status; Z23 Encounter for immunization
CPT/HCPCS: 83036; 84439; 84443; 86592; 86593; 86780; 90686; J0561

== ENCOUNTER 2020-07-16 17:59 | Emergency (ER) | payer MEDICAID, OTHER ==
[~2020-07-16] VITALS: Ht 167.6 cm; Wt 77.3 kg
[2020-07-16 18:47] LABS: COVID AG,FIA SOURCE NASOPHARYNGEAL
[2020-07-16 21:13] VITALS: BP 116/77
== END 2020-07-16 21:18 | disposition home or self-care (01) ==
LOC: EMS 17:59
DX: F20.9 Schizophrenia, unspecified (principal); F41.9 Anxiety disorder, unspecified; F31.9 Bipolar disorder, unspecified; F17.200 Nicotine dependence, unspecified, uncomplicated; F14.90 Cocaine use, unspecified, uncomplicated; F12.90 Cannabis use, unspecified, uncomplicated; F19.90 Other psychoactive substance use, unspecified, uncomplicated; Z20.828 Contact with and (suspected) exposure to other viral communicable diseases
CPT/HCPCS: 87426

== ENCOUNTER 2020-10-02 10:39 | Inpatient (IN) | payer MEDICAID ==
[~2020-10-02] VITALS: Ht 167.6 cm; Wt 79.8 kg
[~2020-10-02 10:39] MED LIST changes: +NALT50TA PO; -NALT50TA6 PO; +OMEG-135 PO; +PALI117D IM
[2020-10-02 12:54] LABS: COVID AG,FIA SOURCE NASOPHARYNGEAL
[2020-10-02] MEDS ORDERED: HALOPERIDOL 5 MG TABLET PO PRN (14:00)
[2020-10-02] MEDS ORDERED: ZOLPIDEM TARTRATE 10 MG TABLET PO PRN (14:00)
[2020-10-02 15:50] VITALS: BP 110/67
[2020-10-02 17:46] VITALS: BP 142/78
[2020-10-03] VITALS: BP 124/75
[2020-10-03 08:22] VITALS: BP 100/63
[2020-10-03] MEDS ORDERED: CloNIDine HCL 0.1 MG TABLET PO PRN (08:30)
[2020-10-03] MEDS ORDERED: MAG HYDROX/AL HYDROX/SIMETH ES 30 ML SUSPENSION UDCUP PO PRN (08:30)
[2020-10-03] MEDS ORDERED: IBUPROFEN 400 MG TABLET PO PRN (08:30)
[2020-10-03] MEDS ORDERED: LOPERAMIDE HCL 2 MG CAPSULE PO PRN (08:30)
[2020-10-03] MEDS ORDERED: MAGNESIUM HYDROXIDE SUSPENSION 30 ML UDCUP PO PRN (08:30)
[2020-10-03] MEDS ORDERED: ONDANSETRON HCL 4 MG TABLET PO PRN (08:30)
[2020-10-03] MEDS ORDERED: PETROLATUM,WHITE 28 GM JELLY TP PRN (08:30)
[2020-10-03] MEDS ORDERED: GuaiFENesin/D-METHORPHAN [SUGAR-FREE] 200-20MG/10 ML SYRUP UDCUP PO PRN (08:30)
[2020-10-03] MEDS ORDERED: ALBUTEROL SULFATE HFA 90 MCG/PUFF 8 GM INHALER IH PRN (08:30)
[2020-10-03] MEDS ORDERED: NICOTINE 14 MG/24 HOUR PATCH TD PRN (08:30)
[2020-10-03] MEDS ORDERED: ACETAMINOPHEN 325 MG TABLET PO PRN (08:30)
[2020-10-03] MEDS ORDERED: DOCUSATE SODIUM 100 MG CAPSULE PO PRN (08:30)
[2020-10-03] MEDS: OMEGA-3/DHA/EPA/FISH OIL 1,000 MG CAPSULE PO SCH (09:10)
[2020-10-03] MEDS: LORazepam 1 MG TABLET PO PRN (09:19)
[2020-10-03] MEDS: FLUoxetine HCL 20 MG CAPSULE PO SCH (12:49)
[2020-10-03 16:37] VITALS: BP 120/73
[2020-10-03] MEDS: PALIPERIDONE 3 MG ER TABLET PO SCH (20:30)
[2020-10-04 04:30] VITALS: BP 121/71
[2020-10-04 08:29] VITALS: BP 129/61
[2020-10-04] MEDS: FLUoxetine HCL 20 MG CAPSULE PO SCH (09:29)
[2020-10-04] MEDS: OMEGA-3/DHA/EPA/FISH OIL 1,000 MG CAPSULE PO SCH (09:29)
[2020-10-04] MEDS: LORazepam 1 MG TABLET PO PRN (09:29)
[2020-10-04 17:56] VITALS: BP 118/68
[2020-10-04] MEDS: PALIPERIDONE 3 MG ER TABLET PO SCH (22:08)
[2020-10-05 04:47] VITALS: BP 114/69
[2020-10-05 08:18] VITALS: BP 97/50
[2020-10-05] MEDS: OMEGA-3/DHA/EPA/FISH OIL 1,000 MG CAPSULE PO SCH (09:05)
[2020-10-05] MEDS: FLUoxetine HCL 20 MG CAPSULE PO SCH (09:05)
[2020-10-05] MEDS ORDERED: PALI3TAB14 PO (11:09)
[2020-10-05] MEDS ORDERED: FLUO-191 PO (11:09)
== END 2020-10-05 14:00 | disposition home or self-care (01) | DRG 750 ==
LOC: B3A 14:13
DX: F25.1 Schizoaffective disorder, depressive type (principal); R45.851 Suicidal ideations; Z20.822 Contact with and (suspected) exposure to COVID-19; D64.9 Anemia, unspecified; R00.0 Tachycardia, unspecified; F19.10 Other psychoactive substance abuse, uncomplicated; R03.0 Elevated blood-pressure reading, without diagnosis of hypertension; Z91.5 Personal history of self-harm; Z79.899 Other long term (current) drug therapy
CPT/HCPCS: 87426; G0480

== ENCOUNTER 2022-09-28 22:16 | Inpatient (IN) | payer MEDICAID ==
[~2022-09-28] VITALS: Ht 167.6 cm; Wt 81.6 kg
[~2022-09-28 22:16] MED LIST changes: +FLUO-177 PO; -FLUO-191 PO; -NALT50TA PO; -OMEG-135 PO; -PALI117D IM; +PALI3TAB14 PO
[2022-09-29] MEDS ORDERED: ZOLPIDEM TARTRATE 10 MG TABLET PO PRN (00:45)
[2022-09-29 01:16] LABS: GLUCOMETER DEV NAME(LOC) POC.BV
[2022-09-29 03:35] VITALS: BP 119/82
[2022-09-29] MEDS ORDERED: OLAN10TA74 PO (04:57)
[2022-09-29] MEDS ORDERED: IBUPROFEN 600 MG TABLET PO PRN (07:00)
[2022-09-29] MEDS ORDERED: ALBUTEROL SULFATE HFA 90 MCG/PUFF 8 GM INHALER IH PRN (07:00)
[2022-09-29] MEDS ORDERED: CloNIDine HCL 0.1 MG TABLET PO PRN (07:00)
[2022-09-29] MEDS ORDERED: OMEPRAZOLE 20 MG CAPSULE PO PRN (07:00)
[2022-09-29] MEDS ORDERED: BACITRACIN 28 GM OINTMENT TP PRN (07:00)
[2022-09-29] MEDS ORDERED: ACETAMINOPHEN 325 MG TABLET PO PRN (07:00)
[2022-09-29] MEDS ORDERED: DOCUSATE SODIUM 100 MG CAPSULE PO PRN (07:00)
[2022-09-29] MEDS ORDERED: ONDANSETRON HCL 4 MG TABLET PO PRN (07:00)
[2022-09-29] MEDS ORDERED: MAG HYDROX/AL HYDROX/SIMETH ES 30 ML SUSPENSION UDCUP PO PRN (07:00)
[2022-09-29] MEDS ORDERED: PETROLATUM,WHITE 28 GM JELLY TP PRN (07:00)
[2022-09-29] MEDS ORDERED: LOPERAMIDE HCL 2 MG CAPSULE PO PRN (07:00)
[2022-09-29] MEDS ORDERED: BENZOCAINE/MENTHOL LOZENGE PO PRN (07:00)
[2022-09-29] MEDS ORDERED: MAGNESIUM HYDROXIDE SUSPENSION 30 ML UDCUP PO PRN (07:00)
[2022-09-29 07:12] LABS: BASOPHILS % (AUTO) 0.5 % (0.0-2.0); EOSINOPHILS % (AUTO) 3.1 % (1.0-6.0); HEMATOCRIT 37.7 % (41-53); HEMOGLOBIN 12.9 g/dL (13.5-17.5); MEAN CORPUSCULAR HEMOGLOBIN 31.3 pg (26.0-34.0); MEAN CORPUSCULAR HGB CONC 34.2 G/dL (31.0-37.0); MEAN CORPUSCULAR VOLUME 92 fL (80-100); MONOCYTES # (AUTO) 0.6 K/uL (0.1-1.0); MONOCYTES % (AUTO) 12.9 % (2.0-9.0); NEUTROPHILS # (AUTO) 3.2 K/uL (1.8-7.7); NEUTROPHILS % (AUTO) 63.5 % (40.0-70.0); PLATELET COUNT (AUTO) 211 K/uL (150-450); RED BLOOD CELL COUNT(AUTO) 4.12 MIL/uL (4.50-5.90)
[2022-09-29 07:28] LABS: HEMOGLOBIN A1C 5.3 % (3.8-5.6)
[2022-09-29 07:37] LABS: ALANINE AMINOTRANSFERASE 49 U/L (12-78); ALKALINE PHOSPHATASE 95 U/L (46-116); ANION GAP 8 mmol/L (8-16); ASPARTATE AMINOTRANSFERASE 18 U/L (15-37); BILIRUBIN,TOTAL 0.3 mg/dL (0.1-1.0); CALCIUM, TOTAL 8.6 mg/dL (8.8-10.5); CARBON DIOXIDE 27 mmol/L (22-29); CHLORIDE 104 mmol/L (98-107); CHOL/HDL RATIO 2.7 (4.2-7.3); CHOLESTEROL 117 mg/dL (131-200); CREATININE 0.81 mg/dL (0.60-1.30); FREE T4 (FREE THYROXINE) 1.13 ng/dL (0.76-1.46); GLOMERULAR FILTR. RATE CALC > 60 mL/min (>60); GLUCOSE,RANDOM 109 mg/dL (70-110); HDL CHOLESTEROL 43 mg/dL (40-60); LDL CHOL (CALC.) 40 mg/dL (0-130); POTASSIUM 3.7 mmol/L (3.5-5.1); SODIUM SERUM 139 mmol/L (136-145); THYROID STIMULATING HORMONE 2.67 uIU/mL (0.36-3.74); TOTAL PROTEIN, SERUM 6.8 g/dL (6.4-8.2); TRIGLYCERIDES 172 mg/dL (15-150); UREA NITROGEN, BLOOD 11 mg/dL (7-18)
[2022-09-29 08:54] VITALS: BP 121/68
[2022-09-29 21:15] VITALS: BP 127/79
[2022-09-29] MEDS: LORazepam 2 MG TABLET PO PRN (21:57)
[2022-09-29] MEDS: OLANZapine 10 MG TABLET PO SCH (21:58)
[2022-09-30 08:29] LABS: APPEARANCE,URINE HAZY (CLEAR); BILIRUBIN,URINE NEGATIVE (NEGATIVE); GLUCOSE, URINE (UA) NEGATIVE (NEGATIVE); KETONES,URINE NEGATIVE (NEGATIVE); LEUKOCYTE ESTERASE ,URINE NEGATIVE (NEGATIVE); NITRATE,URINE NEGATIVE (NEGATIVE); OCCULT BLOOD,URINE NEGATIVE (NEGATIVE); PH,URINE 7.5 (5.0-8.0); PROTEIN,URINE NEGATIVE (NEGATIVE); SPECIFIC GRAVITIY, URINE 1.009 (1.003-1.030); UROBILINOGEN,URINE <=1.0 mg/dL (<=1.0)
[2022-09-30 08:30] LABS: AMPHET/METH SCREEN,URINE NEGATIVE (NEGATIVE); BARBITURATE SCREEN, URINE NEGATIVE (NEGATIVE); BENZODIAZEPINES SCREEN,URINE NEGATIVE (NEGATIVE); CANNABINOID SCREEN,URINE NEGATIVE (NEGATIVE); COCAINE SCREEN,URINE NEGATIVE (NEGATIVE); METHADONE SCREEN, URINE NEGATIVE (NEGATIVE); OPIATE SCREEN,URINE NEGATIVE (NEGATIVE); PHENCYCLIDINE SCREEN,URINE NEGATIVE (NEGATIVE)
[2022-09-30 09:36] VITALS: BP 129/79
[2022-09-30] MEDS: OLANZapine 10 MG TABLET PO SCH (20:34)
[2022-09-30 20:40] VITALS: BP 109/66
[2022-10-01 09:19] VITALS: BP 119/67
[2022-10-01] MEDS: OLANZapine 10 MG TABLET PO SCH (20:40)
[2022-10-01 20:44] VITALS: BP 131/77
[2022-10-02 08:57] VITALS: BP 136/56
[2022-10-02 20:05] VITALS: BP 120/62
[2022-10-02] MEDS: OLANZapine 10 MG TABLET PO SCH (20:15)
[2022-10-03 09:03] VITALS: BP 103/61
[2022-10-03 20:08] VITALS: BP 113/74
[2022-10-03] MEDS: OLANZapine 10 MG TABLET PO SCH (20:23)
[2022-10-04 08:19] VITALS: BP 110/60
[2022-10-04] MEDS: HALOPERIDOL 5 MG TABLET PO PRN (18:07)
[2022-10-04] MEDS: OLANZapine 10 MG TABLET PO SCH (20:34)
[2022-10-04 21:08] VITALS: BP 106/66
[2022-10-05 20:36] VITALS: BP 103/64
[2022-10-05] MEDS: OLANZapine 10 MG TABLET PO SCH (20:40)
[2022-10-05 20:56] LABS: GLUCOMETER DEV NAME(LOC) POC.BV
[2022-10-06 08:56] VITALS: BP 115/85
[2022-10-06] MEDS: OLANZapine 10 MG TABLET PO SCH (20:18)
[2022-10-06 20:55] VITALS: BP 121/74
[2022-10-07 09:42] VITALS: BP 115/71
[2022-10-07] MEDS: OLANZapine 10 MG TABLET PO SCH (20:33)
[2022-10-07 20:44] VITALS: BP 117/69
[2022-10-08 09:38] VITALS: BP 104/62
[2022-10-08] MEDS: LORazepam 2 MG TABLET PO PRN (16:22)
[2022-10-08] MEDS: HALOPERIDOL 5 MG TABLET PO PRN (16:23)
[2022-10-08] MEDS: OLANZapine 10 MG TABLET PO SCH (20:17)
[2022-10-08 20:30] VITALS: BP 125/79
[2022-10-08] MEDS ORDERED: OLAN10 PO (21:39)
== END 2022-10-09 08:30 | disposition home or self-care (01) | DRG 750 ==
LOC: B2X 23:30 → B2S 09-29 11:42
PROVIDERS: ADMIT Psychiatry & Neurology Psychiatry; ATTEND Psychiatry & Neurology Psychiatry
DX: F25.9 Schizoaffective disorder, unspecified (principal); R45.851 Suicidal ideations; E78.5 Hyperlipidemia, unspecified; F41.9 Anxiety disorder, unspecified; Z20.822 Contact with and (suspected) exposure to COVID-19; K59.00 Constipation, unspecified; G47.00 Insomnia, unspecified; F17.210 Nicotine dependence, cigarettes, uncomplicated; F19.10 Other psychoactive substance abuse, uncomplicated; Z79.899 Other long term (current) drug therapy; Z56.0 Unemployment, unspecified
CPT/HCPCS: 80053; 80061; 80307; 81003; 83036; 84436; 84439; 84443; 85025; 86592; G0480

== ENCOUNTER 2023-01-18 11:35 | Inpatient (IN) | payer MEDICAID, OTHER ==
[~2023-01-18] VITALS: Ht 165.1 cm; Wt 76.7 kg
[~2023-01-18 11:35] MED LIST changes: -FLUO-177 PO; +OLAN10TA74 PO; -PALI3TAB14 PO
[2023-01-18] MEDS ORDERED: PERTUSS(ACELL),DIPH,TET VAC/PF 0.5 ML SYRINGE IM. ONE (12:00)
[2023-01-18] MEDS ORDERED: BACITRACIN 28 GM OINTMENT TP ONE (12:00)
[2023-01-18 12:03] LABS: COVID AG,FIA SOURCE NASOPHARYNGEAL
[2023-01-18 12:06] LABS: BASOPHILS % (AUTO) 0.4 % (0.0-2.0); HEMATOCRIT 37.4 % (41-53); HEMOGLOBIN 12.4 g/dL (13.5-17.5); LYMPHOCYTES # (AUTO) 1.9 K/uL (1.0-4.8); LYMPHOCYTES % (AUTO) 25.7 % (22.0-44.0); MEAN CORPUSCULAR HEMOGLOBIN 29.3 pg (26.0-34.0); MEAN CORPUSCULAR HGB CONC 33.1 G/dL (31.0-37.0); MEAN CORPUSCULAR VOLUME 89 fL (80-100); MONOCYTES # (AUTO) 0.7 K/uL (0.1-1.0); MONOCYTES % (AUTO) 9.7 % (2.0-9.0); NEUTROPHILS # (AUTO) 4.5 K/uL (1.8-7.7); NEUTROPHILS % (AUTO) 62.2 % (40.0-70.0); PLATELET COUNT (AUTO) 259 K/uL (150-450); RED BLOOD CELL COUNT(AUTO) 4.23 MIL/uL (4.50-5.90); RED CELL DISTRIBUTION WIDTH 14.1 % (11.5-14.5)
[2023-01-18 12:17] LABS: ANION GAP 12 mmol/L (8-16); CARBON DIOXIDE 26 mmol/L (22-29); CHLORIDE 100 mmol/L (98-107); CREATININE 0.71 mg/dL (0.60-1.30); GLOMERULAR FILTR. RATE CALC > 60 mL/min (>60); GLUCOSE,RANDOM 77 mg/dL (70-110); POTASSIUM 3.2 mmol/L (3.5-5.1); SODIUM SERUM 138 mmol/L (136-145)
[2023-01-18 12:32] LABS: ALANINE AMINOTRANSFERASE 62 U/L (12-78); ALKALINE PHOSPHATASE 84 U/L (46-116); ASPARTATE AMINOTRANSFERASE 40 U/L (15-37); BILIRUBIN,TOTAL 1.3 mg/dL (0.1-1.0); TOTAL PROTEIN, SERUM 8.4 g/dL (6.4-8.2)
[2023-01-18 12:33] LABS: ALBUMIN 3.7 g/dL (3.4-5.0)
[2023-01-18] MEDS ORDERED: ZOLPIDEM TARTRATE 10 MG TABLET PO PRN (13:00)
[2023-01-18] MEDS ORDERED: LORazepam 2 MG TABLET PO PRN (13:00)
[2023-01-18] MEDS ORDERED: POTASSIUM CHLORIDE 20 MEQ ER TABLET PO ONE (14:45)
[2023-01-19] MEDS ORDERED: ALBUTEROL SULFATE HFA 90 MCG/PUFF 8 GM INHALER IH PRN (05:45)
[2023-01-19] MEDS ORDERED: DOCUSATE SODIUM 100 MG CAPSULE PO PRN (05:45)
[2023-01-19] MEDS ORDERED: ACETAMINOPHEN 325 MG TABLET PO PRN (05:45)
[2023-01-19] MEDS ORDERED: LOPERAMIDE HCL 2 MG CAPSULE PO PRN (05:45)
[2023-01-19] MEDS ORDERED: MAGNESIUM HYDROXIDE SUSPENSION 30 ML UDCUP PO PRN (05:45)
[2023-01-19] MEDS ORDERED: PETROLATUM,WHITE 28 GM JELLY TP PRN (05:45)
[2023-01-19] MEDS ORDERED: OMEPRAZOLE 20 MG CAPSULE PO PRN (05:45)
[2023-01-19] MEDS ORDERED: IBUPROFEN 600 MG TABLET PO PRN (05:45)
[2023-01-19] MEDS ORDERED: CloNIDine HCL 0.1 MG TABLET PO PRN (05:45)
[2023-01-19] MEDS ORDERED: ONDANSETRON HCL 4 MG TABLET PO PRN (05:45)
[2023-01-19] MEDS ORDERED: BACITRACIN 28 GM OINTMENT TP PRN (05:45)
[2023-01-19] MEDS ORDERED: MAG HYDROX/AL HYDROX/SIMETH ES 30 ML SUSPENSION UDCUP PO PRN (05:45)
[2023-01-19 09:19] VITALS: BP 106/65; PULSE 82; RESP 18; TEMP 97.6; O2SAT 98
[2023-01-19] MEDS: OLANZapine 7.5 MG TABLET PO SCH (20:06)
[2023-01-19 21:26] VITALS: BP 91/86; PULSE 85; RESP 19; TEMP 97.9; O2SAT 99
[2023-01-20 05:47] LABS: HEMOGLOBIN A1C 4.8 % (3.8-5.6)
[2023-01-20 09:52] VITALS: BP 103/60; PULSE 66; RESP 18; TEMP 97.6; O2SAT 97
[2023-01-20] MEDS: OLANZapine 7.5 MG TABLET PO SCH (21:06)
[2023-01-20 21:29] LABS: APPEARANCE,URINE CLEAR (CLEAR); BILIRUBIN,URINE NEGATIVE (NEGATIVE); GLUCOSE, URINE (UA) NEGATIVE (NEGATIVE); KETONES,URINE NEGATIVE (NEGATIVE); LEUKOCYTE ESTERASE ,URINE NEGATIVE (NEGATIVE); NITRATE,URINE NEGATIVE (NEGATIVE); OCCULT BLOOD,URINE NEGATIVE (NEGATIVE); PH,URINE 6.5 (5.0-8.0); PROTEIN,URINE NEGATIVE (NEGATIVE); SPECIFIC GRAVITIY, URINE 1.018 (1.003-1.030); UROBILINOGEN,URINE <=1.0 mg/dL (<=1.0)
[2023-01-20 21:36] LABS: AMPHET/METH SCREEN,URINE NEGATIVE (NEGATIVE); BARBITURATE SCREEN, URINE NEGATIVE (NEGATIVE); BENZODIAZEPINES SCREEN,URINE NEGATIVE (NEGATIVE); CANNABINOID SCREEN,URINE NEGATIVE (NEGATIVE); COCAINE SCREEN,URINE NEGATIVE (NEGATIVE); METHADONE SCREEN, URINE NEGATIVE (NEGATIVE); OPIATE SCREEN,URINE NEGATIVE (NEGATIVE); PHENCYCLIDINE SCREEN,URINE NEGATIVE (NEGATIVE)
[2023-01-20 23:22] VITALS: BP 125/68; PULSE 79; RESP 18; TEMP 97.4; O2SAT 98
[2023-01-21 08:00] VITALS: BP 109/84; PULSE 73; RESP 18; TEMP 97.5; O2SAT 98
[2023-01-21 20:07] VITALS: BP 120/81; PULSE 82; RESP 19; TEMP 97.8; O2SAT 97
[2023-01-21] MEDS: OLANZapine 7.5 MG TABLET PO SCH (20:56)
[2023-01-22 09:43] VITALS: BP 112/69; PULSE 104; RESP 18; TEMP 98; O2SAT 97
[2023-01-22] MEDS: OLANZapine 7.5 MG TABLET PO SCH (20:35)
[2023-01-22] MEDS: HALOPERIDOL 5 MG TABLET PO PRN (20:35)
[2023-01-22 21:46] VITALS: BP 111/69; PULSE 90; RESP 19; TEMP 98; O2SAT 98
[2023-01-23 11:02] VITALS: BP 109/52; PULSE 98; RESP 18; TEMP 97.7; O2SAT 98
[2023-01-23 20:16] VITALS: BP 106/61; PULSE 94; RESP 18; TEMP 98; O2SAT 100
[2023-01-23] MEDS: OLANZapine 7.5 MG TABLET PO SCH (20:46)
[2023-01-23] MEDS: HALOPERIDOL 5 MG TABLET PO PRN (20:46)
[2023-01-23 21:23] VITALS: BP 106/62; PULSE 94; RESP 18; TEMP 98; O2SAT 100
[2023-01-23 21:35] VITALS: BP 116/63; PULSE 95; TEMP 97.9
[2023-01-24 05:09] LABS: COVID AG,FIA SOURCE NASAL SWAB
[2023-01-24 08:00] VITALS: BP 112/55; PULSE 86; RESP 16; TEMP 97.8; O2SAT 100
[2023-01-24] MEDS ORDERED: OLAN7.5T22 PO (10:02)
== END 2023-01-24 12:10 | disposition home or self-care (01) | DRG 750 ==
LOC: EMS 11:51 → 3EI 01-19 02:04
PROVIDERS: ADMIT Psychiatry & Neurology Psychiatry; ATTEND Psychiatry & Neurology Psychiatry
DX: F25.1 Schizoaffective disorder, depressive type (principal); R45.851 Suicidal ideations; Z91.199 Patient's noncompliance with other medical treatment and regimen due to unspecified reason; F12.10 Cannabis abuse, uncomplicated; F41.9 Anxiety disorder, unspecified; F14.10 Cocaine abuse, uncomplicated; F15.10 Other stimulant abuse, uncomplicated; G47.00 Insomnia, unspecified; Z20.822 Contact with and (suspected) exposure to COVID-19; K59.00 Constipation, unspecified; E87.6 Hypokalemia; Z59.00 Homelessness unspecified
CPT/HCPCS: 80053; 80061; 80307; 81003; 83036; 84132; 85025; G0480

== ENCOUNTER 2023-02-05 05:41 | Inpatient (IN) | payer MEDICAID, OTHER ==
[~2023-02-05] VITALS: Ht 167.6 cm; Wt 75.3 kg
[~2023-02-05 05:41] MED LIST changes: -OLAN10TA74 PO; +OLAN7.5T22 PO
[2023-02-05 06:17] LABS: COVID AG,FIA SOURCE NASOPHARYNGEAL
[2023-02-05 06:18] LABS: BASOPHILS % (AUTO) 0.3 % (0.0-2.0); EOSINOPHILS % (AUTO) 0.5 % (1.0-6.0); HEMATOCRIT 41.2 % (41-53); HEMOGLOBIN 14.2 g/dL (13.5-17.5); LYMPHOCYTES # (AUTO) 2.2 K/uL (1.0-4.8); LYMPHOCYTES % (AUTO) 21.6 % (22.0-44.0); MEAN CORPUSCULAR HEMOGLOBIN 30.3 pg (26.0-34.0); MEAN CORPUSCULAR HGB CONC 34.5 G/dL (31.0-37.0); MEAN CORPUSCULAR VOLUME 88 fL (80-100); MONOCYTES # (AUTO) 1.1 K/uL (0.1-1.0); MONOCYTES % (AUTO) 11.3 % (2.0-9.0); NEUTROPHILS # (AUTO) 6.6 K/uL (1.8-7.7); NEUTROPHILS % (AUTO) 66.3 % (40.0-70.0); PLATELET COUNT (AUTO) 318 K/uL (150-450); RED CELL DISTRIBUTION WIDTH 13.8 % (11.5-14.5)
[2023-02-05 06:22] LABS: ANION GAP 12 mmol/L (8-16); CALCIUM, TOTAL 9.6 mg/dL (8.8-10.5); CARBON DIOXIDE 27 mmol/L (22-29); CHLORIDE 99 mmol/L (98-107); CREATININE 0.98 mg/dL (0.60-1.30); GLOMERULAR FILTR. RATE CALC > 60 mL/min (>60); GLUCOSE,RANDOM 86 mg/dL (70-110); POTASSIUM 4.1 mmol/L (3.5-5.1); SODIUM SERUM 138 mmol/L (136-145)
[2023-02-05 06:36] LABS: ALANINE AMINOTRANSFERASE 75 U/L (12-78); ALBUMIN 4.2 g/dL (3.4-5.0); ALKALINE PHOSPHATASE 92 U/L (46-116); ASPARTATE AMINOTRANSFERASE 42 U/L (15-37); BILIRUBIN,TOTAL 1.4 mg/dL (0.1-1.0); TOTAL PROTEIN, SERUM 9.7 g/dL (6.4-8.2)
[2023-02-05] MEDS ORDERED: OLANZapine 5 MG TABLET PO ONE (10:00)
[2023-02-05] MEDS ORDERED: HALOPERIDOL 5 MG TABLET PO PRN (13:00)
[2023-02-05] MEDS ORDERED: LORazepam 2 MG TABLET PO PRN (13:00)
[2023-02-05 15:38] VITALS: BP 109/60; PULSE 107; RESP 18; TEMP 98.2; O2SAT 98
[2023-02-05] MEDS: BACITRACIN 28 GM OINTMENT TP SCH (16:10)
[2023-02-05 20:10] VITALS: BP 108/60; PULSE 87; RESP 18; TEMP 98.2; O2SAT 99
[2023-02-05] MEDS ORDERED: ONDANSETRON HCL 4 MG TABLET PO PRN (22:30)
[2023-02-05] MEDS ORDERED: BENZOCAINE/MENTHOL LOZENGE PO PRN (22:30)
[2023-02-05] MEDS ORDERED: ACETAMINOPHEN 325 MG TABLET PO PRN (22:30)
[2023-02-05] MEDS ORDERED: LOPERAMIDE HCL 2 MG CAPSULE PO PRN (22:30)
[2023-02-05] MEDS ORDERED: MAGNESIUM HYDROXIDE SUSPENSION 30 ML UDCUP PO PRN (22:30)
[2023-02-05] MEDS ORDERED: IBUPROFEN 600 MG TABLET PO PRN (22:30)
[2023-02-05] MEDS ORDERED: BACITRACIN 28 GM OINTMENT TP PRN (22:30)
[2023-02-05] MEDS ORDERED: OMEPRAZOLE 20 MG CAPSULE PO PRN (22:30)
[2023-02-05] MEDS ORDERED: ALBUTEROL SULFATE HFA 90 MCG/PUFF 8 GM INHALER IH PRN (22:30)
[2023-02-05] MEDS ORDERED: MAG HYDROX/AL HYDROX/SIMETH ES 30 ML SUSPENSION UDCUP PO PRN (22:30)
[2023-02-05] MEDS ORDERED: CloNIDine HCL 0.1 MG TABLET PO PRN (22:30)
[2023-02-05] MEDS ORDERED: DOCUSATE SODIUM 100 MG CAPSULE PO PRN (22:30)
[2023-02-05] MEDS ORDERED: PETROLATUM,WHITE 28 GM JELLY TP PRN (22:30)
[2023-02-06 08:20] VITALS: BP 106/60; PULSE 91; RESP 17; TEMP 97.8; O2SAT 99
[2023-02-06] MEDS: BACITRACIN 28 GM OINTMENT TP SCH ×2 (08:28→17:48)
[2023-02-06 09:10] LABS: THYROID STIMULATING HORMONE 2.46 uIU/mL (0.36-3.74)
[2023-02-06 20:11] VITALS: BP 106/62; PULSE 72; RESP 18; TEMP 97.9; O2SAT 99
[2023-02-07 08:05] VITALS: BP 110/65; PULSE 90; RESP 15; TEMP 97.8; O2SAT 97
[2023-02-07 08:07] LABS: HEPATITIS C AB (EIA) Reactive (Non Reactive)
[2023-02-07] MEDS: BACITRACIN 28 GM OINTMENT TP SCH ×2 (08:48→17:24)
[2023-02-07 09:00] VITALS: BP 109/63; PULSE 90; RESP 18; TEMP 97.8; O2SAT 98
[2023-02-07 20:26] VITALS: BP 101/65; PULSE 78; RESP 17; TEMP 98.2; O2SAT 99
[2023-02-07] MEDS: ZOLPIDEM TARTRATE 10 MG TABLET PO PRN (20:44)
[2023-02-08] MEDS: BACITRACIN 28 GM OINTMENT TP SCH ×2 (08:12→16:45)
[2023-02-08 08:38] VITALS: BP 115/65; PULSE 79; RESP 20; TEMP 96.8; O2SAT 99
[2023-02-08 15:04] VITALS: BP 130/75; PULSE 82; RESP 20; TEMP 96.9; O2SAT 99
[2023-02-08 21:10] VITALS: BP 118/66; PULSE 74; RESP 18; TEMP 98.3; O2SAT 99
[2023-02-08] MEDS: ZOLPIDEM TARTRATE 10 MG TABLET PO PRN (21:40)
[2023-02-09 08:14] VITALS: BP 104/62; PULSE 65; RESP 18; TEMP 98.1; O2SAT 97
[2023-02-09] MEDS: BACITRACIN 28 GM OINTMENT TP SCH ×2 (08:20→20:01)
[2023-02-09 11:07] LABS: HEPATITIS C RT-PCR,QNT 857000 IU/mL
[2023-02-09 20:06] VITALS: BP 117/74; PULSE 81; RESP 18; TEMP 98.1; O2SAT 100
[2023-02-09] MEDS: OLANZapine 7.5 MG TABLET PO SCH (20:35)
[2023-02-10] MEDS: BACITRACIN 28 GM OINTMENT TP SCH ×2 (08:10→17:00)
[2023-02-10 08:20] VITALS: BP 118/73; PULSE 67; RESP 17; TEMP 98.8
[2023-02-10 20:10] VITALS: BP 109/66; PULSE 74; RESP 18; TEMP 98.1; O2SAT 98
[2023-02-10] MEDS: OLANZapine 7.5 MG TABLET PO SCH (20:28)
[2023-02-11] MEDS: BACITRACIN 28 GM OINTMENT TP SCH ×2 (09:45→17:00)
[2023-02-11 20:10] VITALS: BP 107/69; PULSE 93; RESP 18; TEMP 98.3; O2SAT 96
[2023-02-11] MEDS: OLANZapine 7.5 MG TABLET PO SCH (20:43)
[2023-02-12 08:34] VITALS: BP 100/62; PULSE 60; RESP 17; TEMP 97.5; O2SAT 99
[2023-02-12] MEDS: BACITRACIN 28 GM OINTMENT TP SCH (09:00)
[2023-02-12 20:17] VITALS: BP 110/73; PULSE 89; RESP 18; TEMP 97.8; O2SAT 97
[2023-02-12] MEDS: OLANZapine 7.5 MG TABLET PO SCH (21:07)
[2023-02-13 14:34] VITALS: RESP 16
[2023-02-13 14:52] VITALS: BP 105/57; PULSE 71; RESP 17; TEMP 98.2
[2023-02-13 20:04] VITALS: BP 109/69; PULSE 66; RESP 16; TEMP 98.8
[2023-02-13] MEDS: OLANZapine 7.5 MG TABLET PO SCH (20:54)
[2023-02-14 08:30] VITALS: BP 103/59; PULSE 65; RESP 19; TEMP 97.9; O2SAT 100
[2023-02-14] MEDS: OLANZapine 7.5 MG TABLET PO SCH (20:41)
[2023-02-14 21:27] VITALS: BP 100/60; PULSE 72; RESP 17; TEMP 98; O2SAT 98
[2023-02-15 08:13] VITALS: BP 100/58; PULSE 59; RESP 19; TEMP 98; O2SAT 98
[2023-02-15 20:03] VITALS: BP 108/67; PULSE 79; RESP 17; TEMP 98.4
[2023-02-15] MEDS: OLANZapine 7.5 MG TABLET PO SCH (20:46)
[2023-02-16 08:33] VITALS: BP 104/60; PULSE 74; RESP 17; TEMP 97.9; O2SAT 98
[2023-02-16 20:15] VITALS: BP 112/64; PULSE 90; RESP 17; TEMP 97.9; O2SAT 99
[2023-02-16] MEDS: OLANZapine 7.5 MG TABLET PO SCH (20:33)
== END 2023-02-17 07:25 | disposition home or self-care (01) | DRG 750 ==
LOC: EMS 05:43 → B3A 13:00 → B2S 02-08 16:48
PROVIDERS: ADMIT Psychiatry & Neurology Psychiatry; ATTEND Psychiatry & Neurology Psychiatry
DX: F20.9 Schizophrenia, unspecified (principal); R45.851 Suicidal ideations; Z91.148 Patient's other noncompliance with medication regimen for other reason; B19.20 Unspecified viral hepatitis C without hepatic coma; K59.00 Constipation, unspecified; F12.10 Cannabis abuse, uncomplicated; Z20.822 Contact with and (suspected) exposure to COVID-19; F10.10 Alcohol abuse, uncomplicated; I10 Essential (primary) hypertension; G47.00 Insomnia, unspecified; F41.9 Anxiety disorder, unspecified; F31.9 Bipolar disorder, unspecified; Z87.891 Personal history of nicotine dependence
CPT/HCPCS: 80053; 80061; 83036; 84443; 85025; 86803; 87081; 87340; 87522; 99285; G0480

== ENCOUNTER 2023-05-22 03:35 | Inpatient (IN) | payer MEDICAID, OTHER ==
[~2023-05-22] VITALS: Ht 167.6 cm; Wt 68.0 kg
[~2023-05-22 03:35] MED LIST changes: +PANT-31 PO
[2023-05-22 04:22] LABS: COVID AG,FIA SOURCE NASAL SWAB
[2023-05-22 04:27] LABS: BASOPHILS % (AUTO) 0.4 % (0.0-2.0); EOSINOPHILS % (AUTO) 8.8 % (1.0-6.0); HEMATOCRIT 37.9 % (41-53); HEMOGLOBIN 12.6 g/dL (13.5-17.5); LYMPHOCYTES # (AUTO) 1.4 K/uL (1.0-4.8); MEAN CORPUSCULAR HEMOGLOBIN 29.6 pg (26.0-34.0); MEAN CORPUSCULAR HGB CONC 33.3 G/dL (31.0-37.0); MEAN CORPUSCULAR VOLUME 89 fL (80-100); MONOCYTES # (AUTO) 0.6 K/uL (0.1-1.0); MONOCYTES % (AUTO) 10.8 % (2.0-9.0); NEUTROPHILS # (AUTO) 2.6 K/uL (1.8-7.7); PLATELET COUNT (AUTO) 272 K/uL (150-450); RED BLOOD CELL COUNT(AUTO) 4.25 MIL/uL (4.50-5.90); WHITE BLOOD COUNT (AUTO) 5.1 K/uL (4.5-11.0)
[2023-05-22 04:36] LABS: SARS-COV2 (COVID) ANTIGEN,FIA Negative (Negative)
[2023-05-22 04:45] LABS: ANION GAP 8 mmol/L (8-16); CALCIUM, TOTAL 8.7 mg/dL (8.8-10.5); CARBON DIOXIDE 25 mmol/L (22-29); CHLORIDE 104 mmol/L (98-107); CREATININE 0.82 mg/dL (0.60-1.30); GLOMERULAR FILTR. RATE CALC > 60 mL/min (>60); GLUCOSE,RANDOM 118 mg/dL (70-110); POTASSIUM 3.6 mmol/L (3.5-5.1); SODIUM SERUM 137 mmol/L (136-145); UREA NITROGEN, BLOOD 10 mg/dL (7-18)
[2023-05-22 04:49] LABS: ALCOHOL, BLOOD (SERUM) < 3 mg/dL (0-10)
[2023-05-22 04:51] LABS: ALCOHOL, URINE DRUG SCREEN NEGATIVE (NEGATIVE); AMPHET/METH SCREEN,URINE POSITIVE (NEGATIVE); BARBITURATE SCREEN, URINE NEGATIVE (NEGATIVE); BENZODIAZEPINES SCREEN,URINE NEGATIVE (NEGATIVE); CANNABINOID SCREEN,URINE NEGATIVE (NEGATIVE); COCAINE SCREEN,URINE NEGATIVE (NEGATIVE); METHADONE SCREEN, URINE NEGATIVE (NEGATIVE); OPIATE SCREEN,URINE NEGATIVE (NEGATIVE); PHENCYCLIDINE SCREEN,URINE NEGATIVE (NEGATIVE)
[2023-05-22 04:52] LABS: ALANINE AMINOTRANSFERASE 33 U/L (12-78); ALBUMIN 3.2 g/dL (3.4-5.0); ALKALINE PHOSPHATASE 84 U/L (46-116); ASPARTATE AMINOTRANSFERASE 19 U/L (15-37); BILIRUBIN,TOTAL 0.5 mg/dL (0.1-1.0); TOTAL PROTEIN, SERUM 7.5 g/dL (6.4-8.2)
[2023-05-22] MEDS ORDERED: LORazepam 2 MG TABLET PO PRN (05:15)
[2023-05-22] MEDS ORDERED: HALOPERIDOL 5 MG TABLET PO PRN (05:15)
[2023-05-22] MEDS ORDERED: ZOLPIDEM TARTRATE 10 MG TABLET PO PRN (05:15)
[2023-05-22 05:28] LABS: APPEARANCE,URINE CLEAR (CLEAR); BILIRUBIN,URINE NEGATIVE (NEGATIVE); COLOR,URINE YELLOW (YELLOW); GLUCOSE, URINE (UA) NEGATIVE (NEGATIVE); KETONES,URINE NEGATIVE (NEGATIVE); LEUKOCYTE ESTERASE ,URINE NEGATIVE (NEGATIVE); NITRATE,URINE NEGATIVE (NEGATIVE); OCCULT BLOOD,URINE NEGATIVE (NEGATIVE); PROTEIN,URINE NEGATIVE (NEGATIVE); SPECIFIC GRAVITIY, URINE 1.029 (1.003-1.030); UROBILINOGEN,URINE <=1.0 mg/dL (<=1.0)
[2023-05-22 13:00] VITALS: BP 113/63; PULSE 101; RESP 18; TEMP 97.8; O2SAT 98
[2023-05-22] MEDS ORDERED: OMEPRAZOLE 20 MG CAPSULE PO PRN (20:00)
[2023-05-22] MEDS ORDERED: LOPERAMIDE HCL 2 MG CAPSULE PO PRN (20:00)
[2023-05-22] MEDS ORDERED: CloNIDine HCL 0.1 MG TABLET PO PRN (20:00)
[2023-05-22] MEDS ORDERED: ONDANSETRON HCL 4 MG TABLET PO PRN (20:00)
[2023-05-22] MEDS ORDERED: IBUPROFEN 600 MG TABLET PO PRN (20:00)
[2023-05-22] MEDS ORDERED: DOCUSATE SODIUM 100 MG CAPSULE PO PRN (20:00)
[2023-05-22] MEDS ORDERED: MAG HYDROX/ALUMINUM HYD/SIMETH ES 30 ML SUSPENSION UDCUP PO PRN (20:00)
[2023-05-22] MEDS ORDERED: BACITRACIN 28 GM OINTMENT TP PRN (20:00)
[2023-05-22] MEDS ORDERED: ACETAMINOPHEN 325 MG TABLET PO PRN (20:00)
[2023-05-22] MEDS ORDERED: MAGNESIUM HYDROXIDE SUSPENSION 30 ML UDCUP PO PRN (20:00)
[2023-05-22] MEDS ORDERED: ALBUTEROL SULFATE HFA 90 MCG/PUFF 8 GM INHALER IH PRN (20:00)
[2023-05-22] MEDS ORDERED: PETROLATUM,WHITE 28 GM JELLY TP PRN (20:00)
[2023-05-22] MEDS ORDERED: BENZOCAINE/MENTHOL LOZENGE PO PRN (20:00)
[2023-05-22] MEDS: OLANZapine 7.5 MG TABLET PO SCH (20:27)
[2023-05-22 20:32] VITALS: BP 118/68; PULSE 99; RESP 18; TEMP 97.5; O2SAT 99
[2023-05-23 10:40] VITALS: BP 114/65; PULSE 69; RESP 18; TEMP 98; O2SAT 100
[2023-05-23] MEDS: OLANZapine 7.5 MG TABLET PO SCH (20:07)
[2023-05-23 20:39] VITALS: BP 112/71; PULSE 78; RESP 18; TEMP 97.6; O2SAT 96
[2023-05-24 08:19] VITALS: BP 116/60; PULSE 68; RESP 18; TEMP 98; O2SAT 100
[2023-05-24] MEDS: OLANZapine 7.5 MG TABLET PO SCH (21:24)
[2023-05-24 22:17] VITALS: BP 101/68; PULSE 89; RESP 18; TEMP 97.8; O2SAT 99
[2023-05-25] MEDS: OLANZapine 7.5 MG TABLET PO SCH (20:34)
[2023-05-25 20:41] VITALS: BP 114/63; PULSE 93; RESP 18; TEMP 98.4; O2SAT 98
[2023-05-26 08:28] VITALS: BP 119/62; PULSE 83; RESP 18; TEMP 97.5; O2SAT 97
[2023-05-26] MEDS: OLANZapine 7.5 MG TABLET PO SCH (20:44)
[2023-05-26 20:46] VITALS: RESP 17
[2023-05-27 08:30] VITALS: BP 106/63; PULSE 62; RESP 19; TEMP 97.8; O2SAT 94
[2023-05-27 20:47] VITALS: BP 114/59; PULSE 96; RESP 18; TEMP 98; O2SAT 99
[2023-05-27] MEDS: OLANZapine 7.5 MG TABLET PO SCH (21:05)
[2023-05-28 08:17] VITALS: BP 110/60; PULSE 63; RESP 17; TEMP 97.8; O2SAT 94
[2023-05-28 20:19] VITALS: BP 101/61; PULSE 92; RESP 18; TEMP 98; O2SAT 96
[2023-05-28] MEDS: OLANZapine 7.5 MG TABLET PO SCH (20:49)
[2023-05-29 08:20] VITALS: BP 102/57; PULSE 77; RESP 17; TEMP 97.5; O2SAT 95
[2023-05-29] MEDS ORDERED: OLAN7.5T22 PO (13:47)
== END 2023-05-29 14:35 | disposition home or self-care (01) | DRG 750 ==
LOC: EMS 03:37 → B2S 09:56
PROVIDERS: ADMIT Psychiatry & Neurology Psychiatry; ATTEND Psychiatry & Neurology Psychiatry
DX: F20.9 Schizophrenia, unspecified (principal); R45.851 Suicidal ideations; Z91.148 Patient's other noncompliance with medication regimen for other reason; E78.5 Hyperlipidemia, unspecified; F15.10 Other stimulant abuse, uncomplicated; F11.10 Opioid abuse, uncomplicated; K59.00 Constipation, unspecified; Z20.822 Contact with and (suspected) exposure to COVID-19; G47.00 Insomnia, unspecified; F41.9 Anxiety disorder, unspecified; F17.210 Nicotine dependence, cigarettes, uncomplicated; Z59.00 Homelessness unspecified; Z56.0 Unemployment, unspecified
CPT/HCPCS: 80053; 80307; 81003; 85025; 99285; G0480

== ENCOUNTER 2023-05-31 08:18 | Emergency (ER) | payer MEDICAID, OTHER ==
[~2023-05-31] VITALS: Ht 167.6 cm; Wt 77.3 kg
[~2023-05-31 08:18] MED LIST changes: -PANT-31 PO
[2023-05-31 08:25] VITALS: TEMP 98.1
[2023-05-31 08:44] LABS: BASOPHILS % (AUTO) 0.8 % (0.0-2.0); EOSINOPHILS % (AUTO) 1.3 % (1.0-6.0); HEMATOCRIT 39.2 % (41-53); HEMOGLOBIN 13.4 g/dL (13.5-17.5); LYMPHOCYTES # (AUTO) 1.5 K/uL (1.0-4.8); LYMPHOCYTES % (AUTO) 16.6 % (22.0-44.0); MEAN CORPUSCULAR HEMOGLOBIN 29.6 pg (26.0-34.0); MEAN CORPUSCULAR HGB CONC 34.1 G/dL (31.0-37.0); MEAN CORPUSCULAR VOLUME 87 fL (80-100); MONOCYTES % (AUTO) 10.8 % (2.0-9.0); NEUTROPHILS # (AUTO) 6.4 K/uL (1.8-7.7); NEUTROPHILS % (AUTO) 70.5 % (40.0-70.0); PLATELET COUNT (AUTO) 290 K/uL (150-450); RED BLOOD CELL COUNT(AUTO) 4.51 MIL/uL (4.50-5.90); RED CELL DISTRIBUTION WIDTH 13.9 % (11.5-14.5); WHITE BLOOD COUNT (AUTO) 9.1 K/uL (4.5-11.0)
[2023-05-31 08:52] LABS: ANION GAP 14 mmol/L (8-16); CALCIUM, TOTAL 9.2 mg/dL (8.8-10.5); CARBON DIOXIDE 24 mmol/L (22-29); CHLORIDE 99 mmol/L (98-107); GLOMERULAR FILTR. RATE CALC > 60 mL/min (>60); GLUCOSE,RANDOM 90 mg/dL (70-110); POTASSIUM 3.6 mmol/L (3.5-5.1); SODIUM SERUM 137 mmol/L (136-145); UREA NITROGEN, BLOOD 26 mg/dL (7-18)
[2023-05-31 08:59] LABS: ALANINE AMINOTRANSFERASE 99 U/L (12-78); ALCOHOL, BLOOD (SERUM) < 3 mg/dL (0-10); ALKALINE PHOSPHATASE 99 U/L (46-116); ASPARTATE AMINOTRANSFERASE 59 U/L (15-37); BILIRUBIN,TOTAL 1.3 mg/dL (0.1-1.0); TOTAL PROTEIN, SERUM 9.5 g/dL (6.4-8.2)
[2023-05-31] MEDS ORDERED: LORazepam 2 MG TABLET PO ONE (09:30)
[2023-05-31 10:13] VITALS: BP 119/83; PULSE 111; RESP 16
[2023-05-31 10:37] LABS: COVID AG,FIA SOURCE NASAL SWAB
[2023-05-31 10:58] LABS: SARS-COV2 (COVID) ANTIGEN,FIA Negative (Negative)
== END 2023-05-31 11:26 | disposition home or self-care (01) ==
LOC: EMS 08:18
DX: F20.9 Schizophrenia, unspecified (principal); F17.210 Nicotine dependence, cigarettes, uncomplicated; F15.90 Other stimulant use, unspecified, uncomplicated; Z20.822 Contact with and (suspected) exposure to COVID-19
CPT/HCPCS: 99284; 87426; 80053; 85025; 36415; G0480

== ENCOUNTER 2023-06-25 06:33 | Inpatient (IN) | payer MEDICAID, OTHER ==
[~2023-06-25] VITALS: Ht 175.3 cm; Wt 66.8 kg
[2023-06-25] MEDS ORDERED: OLANZapine 5 MG TABLET PO ONE (06:45)
[2023-06-25 07:41] LABS: PH,URINE DRUG SCREEN 5.5 (5.0-8.0)
[2023-06-25 07:53] LABS: BASOPHILS % (AUTO) 0.3 % (0.0-2.0); EOSINOPHILS % (AUTO) 3.5 % (1.0-6.0); HEMATOCRIT 39.5 % (41-53); HEMOGLOBIN 13.3 g/dL (13.5-17.5); LYMPHOCYTES % (AUTO) 19.9 % (22.0-44.0); MEAN CORPUSCULAR HEMOGLOBIN 29.4 pg (26.0-34.0); MEAN CORPUSCULAR HGB CONC 33.6 G/dL (31.0-37.0); MEAN CORPUSCULAR VOLUME 88 fL (80-100); MONOCYTES # (AUTO) 0.5 K/uL (0.1-1.0); MONOCYTES % (AUTO) 9.8 % (2.0-9.0); NEUTROPHILS # (AUTO) 3.4 K/uL (1.8-7.7); NEUTROPHILS % (AUTO) 66.5 % (40.0-70.0); PLATELET COUNT (AUTO) 259 K/uL (150-450); RED BLOOD CELL COUNT(AUTO) 4.52 MIL/uL (4.50-5.90); RED CELL DISTRIBUTION WIDTH 14.4 % (11.5-14.5)
[2023-06-25 07:56] LABS: ANION GAP 9 mmol/L (8-16); CALCIUM, TOTAL 9.2 mg/dL (8.8-10.5); CARBON DIOXIDE 27 mmol/L (22-29); CHLORIDE 101 mmol/L (98-107); CREATININE 0.79 mg/dL (0.60-1.30); GLOMERULAR FILTR. RATE CALC > 60 mL/min (>60); GLUCOSE,RANDOM 86 mg/dL (70-110); POTASSIUM 4.2 mmol/L (3.5-5.1); SODIUM SERUM 137 mmol/L (136-145); UREA NITROGEN, BLOOD 16 mg/dL (7-18)
[2023-06-25 08:02] LABS: ALANINE AMINOTRANSFERASE 84 U/L (12-78); ALBUMIN 3.4 g/dL (3.4-5.0); ALKALINE PHOSPHATASE 93 U/L (46-116); ASPARTATE AMINOTRANSFERASE 51 U/L (15-37); BILIRUBIN,TOTAL 0.9 mg/dL (0.1-1.0); TOTAL PROTEIN, SERUM 8.7 g/dL (6.4-8.2)
[2023-06-25] MEDS ORDERED: ACETAMINOPHEN 500 MG TABLET PO ONE (08:30)
[2023-06-25] MEDS ORDERED: ZOLPIDEM TARTRATE 10 MG TABLET PO PRN (09:30)
[2023-06-25] MEDS ORDERED: HALOPERIDOL 5 MG TABLET PO PRN (09:30)
[2023-06-25] MEDS ORDERED: LORazepam 2 MG TABLET PO PRN (09:30)
[2023-06-25 09:43] LABS: ALCOHOL, BLOOD (SERUM) < 3 mg/dL (0-10)
[2023-06-25 10:18] LABS: COVID AG,FIA SOURCE NASAL SWAB
[2023-06-25 10:27] LABS: ALCOHOL, URINE DRUG SCREEN NEGATIVE (NEGATIVE); AMPHET/METH SCREEN,URINE POSITIVE (NEGATIVE); BARBITURATE SCREEN, URINE NEGATIVE (NEGATIVE); BENZODIAZEPINES SCREEN,URINE NEGATIVE (NEGATIVE); CANNABINOID SCREEN,URINE NEGATIVE (NEGATIVE); COCAINE SCREEN,URINE NEGATIVE (NEGATIVE); METHADONE SCREEN, URINE NEGATIVE (NEGATIVE); OPIATE SCREEN,URINE NEGATIVE (NEGATIVE); PHENCYCLIDINE SCREEN,URINE NEGATIVE (NEGATIVE)
[2023-06-25 10:44] LABS: SARS-COV2 (COVID) ANTIGEN,FIA Negative (Negative)
[2023-06-25 18:52] VITALS: BP 112/64; PULSE 82; RESP 18; TEMP 98.2; O2SAT 99
[2023-06-25 20:59] VITALS: BP 103/65; PULSE 76; RESP 18; TEMP 98.3; O2SAT 98
[2023-06-25] MEDS ORDERED: INFLUENZA VIRUS VACCINE QVS 2023-24 (6MO+)/PF 60 MCG/0.5 ML SYRINGE IM. ONE (22:15)
[2023-06-25] MEDS ORDERED: PNEUMOCOCCAL VACCINE POLYVALENT 0.5 ML SYRINGE [PPSV23] IM. ONE (22:15)
[2023-06-26] MEDS ORDERED: OMEPRAZOLE 20 MG CAPSULE PO PRN (05:45)
[2023-06-26] MEDS ORDERED: IBUPROFEN 600 MG TABLET PO PRN (05:45)
[2023-06-26] MEDS ORDERED: MAGNESIUM HYDROXIDE SUSPENSION 30 ML UDCUP PO PRN (05:45)
[2023-06-26] MEDS ORDERED: ONDANSETRON HCL 4 MG TABLET PO PRN (05:45)
[2023-06-26] MEDS ORDERED: ACETAMINOPHEN 325 MG TABLET PO PRN (05:45)
[2023-06-26] MEDS ORDERED: BENZOCAINE/MENTHOL LOZENGE PO PRN (05:45)
[2023-06-26] MEDS ORDERED: MAG HYDROX/ALUMINUM HYD/SIMETH ES 30 ML SUSPENSION UDCUP PO PRN (05:45)
[2023-06-26] MEDS ORDERED: DOCUSATE SODIUM 100 MG CAPSULE PO PRN (05:45)
[2023-06-26] MEDS ORDERED: BACITRACIN 28 GM OINTMENT TP PRN (05:45)
[2023-06-26] MEDS ORDERED: CloNIDine HCL 0.1 MG TABLET PO PRN (05:45)
[2023-06-26] MEDS ORDERED: ALBUTEROL SULFATE HFA 90 MCG/PUFF 8 GM INHALER IH PRN (05:45)
[2023-06-26] MEDS ORDERED: LOPERAMIDE HCL 2 MG CAPSULE PO PRN (05:45)
[2023-06-26] MEDS ORDERED: PETROLATUM,WHITE 28 GM JELLY TP PRN (05:45)
[2023-06-26 09:01] VITALS: BP 109/56; PULSE 63; RESP 18; TEMP 97.8; O2SAT 98
[2023-06-26 20:32] VITALS: BP 113/67; PULSE 70; RESP 18; TEMP 98.6; O2SAT 99
[2023-06-27 08:59] VITALS: BP 115/62; PULSE 77; RESP 16; TEMP 97.4; O2SAT 96
[2023-06-27 21:31] VITALS: BP 114/64; PULSE 99; RESP 18; TEMP 97.5; O2SAT 99
[2023-06-27] MEDS: OLANZapine 7.5 MG TABLET PO SCH (21:45)
[2023-06-28 08:22] VITALS: BP 101/66; PULSE 70; RESP 17; TEMP 97.5; O2SAT 97
[2023-06-28 20:05] VITALS: BP 108/76; PULSE 72; RESP 19; TEMP 98; O2SAT 98
[2023-06-28] MEDS: OLANZapine 7.5 MG TABLET PO SCH (20:33)
[2023-06-29 08:48] VITALS: BP 105/66; PULSE 100; RESP 17; TEMP 97.9; O2SAT 97
[2023-06-29 20:16] VITALS: BP 107/61; PULSE 73; RESP 19; TEMP 98.4; O2SAT 100
[2023-06-29] MEDS: OLANZapine 7.5 MG TABLET PO SCH (21:46)
[2023-06-30 08:16] VITALS: BP 106/55; PULSE 76; RESP 17; TEMP 98; O2SAT 98
[2023-06-30 20:18] VITALS: BP 103/64; PULSE 88; RESP 18; TEMP 98.5; O2SAT 97
[2023-06-30] MEDS: OLANZapine 7.5 MG TABLET PO SCH (21:01)
[2023-07-01 08:29] VITALS: BP 102/60; PULSE 65; RESP 16; TEMP 98.3; O2SAT 99
[2023-07-01 20:48] VITALS: BP 111/61; PULSE 78; RESP 18; TEMP 98.1
[2023-07-01] MEDS: OLANZapine 7.5 MG TABLET PO SCH (20:53)
[2023-07-02 08:31] VITALS: BP 108/60; PULSE 90; RESP 18; TEMP 98; O2SAT 97
[2023-07-02] MEDS: OLANZapine 7.5 MG TABLET PO SCH (20:04)
[2023-07-02 20:12] VITALS: BP 105/65; PULSE 76; RESP 18; TEMP 98.3; O2SAT 97
[2023-07-03 08:13] VITALS: BP 100/62; PULSE 79; RESP 16; TEMP 97.7; O2SAT 97
[2023-07-03] MEDS: OLANZapine 7.5 MG TABLET PO SCH (20:04)
[2023-07-03 20:05] VITALS: BP 100/55; PULSE 91; RESP 17; TEMP 98.3; O2SAT 98
[2023-07-04 09:16] VITALS: BP 102/62; PULSE 73; RESP 16; TEMP 98; O2SAT 98
[2023-07-04] MEDS: OLANZapine 7.5 MG TABLET PO SCH (20:04)
[2023-07-04 20:30] VITALS: BP 105/60; PULSE 70; RESP 18; TEMP 97.6; O2SAT 97
[2023-07-05 08:30] VITALS: BP 107/65; PULSE 79; RESP 16; TEMP 98; O2SAT 100
[2023-07-05] MEDS: OLANZapine 7.5 MG TABLET PO SCH (20:00)
[2023-07-05 20:20] VITALS: BP 110/65; PULSE 80; RESP 17; TEMP 98; O2SAT 98
[2023-07-06 08:00] VITALS: BP 103/66; PULSE 74; RESP 16; TEMP 98.4; O2SAT 98
== END 2023-07-06 15:19 | disposition home or self-care (01) | DRG 750 ==
LOC: EMS 06:35 → B2S 13:55
PROVIDERS: ADMIT Psychiatry & Neurology Psychiatry; ATTEND Psychiatry & Neurology Psychiatry
DX: F20.9 Schizophrenia, unspecified (principal); R45.851 Suicidal ideations; E78.5 Hyperlipidemia, unspecified; G47.00 Insomnia, unspecified; K59.00 Constipation, unspecified; F41.9 Anxiety disorder, unspecified; F17.210 Nicotine dependence, cigarettes, uncomplicated; R51.9 Headache, unspecified; Z20.822 Contact with and (suspected) exposure to COVID-19; R79.89 Other specified abnormal findings of blood chemistry; F15.10 Other stimulant abuse, uncomplicated; F11.10 Opioid abuse, uncomplicated; Z56.0 Unemployment, unspecified; Z59.00 Homelessness unspecified
CPT/HCPCS: 80053; 80307; 85025; 87081; 99285; G0480

== ENCOUNTER 2023-07-29 15:22 | Inpatient (IN) | payer MEDICAID, OTHER ==
[~2023-07-29] VITALS: Ht 175.3 cm; Wt 66.7 kg
[2023-07-29 15:51] LABS: COVID AG,FIA SOURCE NASAL SWAB
[2023-07-29 16:02] LABS: SARS-COV2 (COVID) ANTIGEN,FIA Negative (Negative)
[2023-07-29 16:42] LABS: BASOPHILS % (AUTO) 0.4 % (0.0-2.0); EOSINOPHILS % (AUTO) 3.7 % (1.0-6.0); HEMATOCRIT 40.2 % (41-53); HEMOGLOBIN 13.5 g/dL (13.5-17.5); LYMPHOCYTES # (AUTO) 1.1 K/uL (1.0-4.8); LYMPHOCYTES % (AUTO) 16.8 % (22.0-44.0); MEAN CORPUSCULAR HEMOGLOBIN 29.6 pg (26.0-34.0); MEAN CORPUSCULAR HGB CONC 33.6 G/dL (31.0-37.0); MEAN CORPUSCULAR VOLUME 88 fL (80-100); MONOCYTES # (AUTO) 0.8 K/uL (0.1-1.0); NEUTROPHILS # (AUTO) 4.5 K/uL (1.8-7.7); NEUTROPHILS % (AUTO) 67.1 % (40.0-70.0); PLATELET COUNT (AUTO) 255 K/uL (150-450); RED BLOOD CELL COUNT(AUTO) 4.56 MIL/uL (4.50-5.90); RED CELL DISTRIBUTION WIDTH 15.2 % (11.5-14.5); WHITE BLOOD COUNT (AUTO) 6.7 K/uL (4.5-11.0)
[2023-07-29 16:46] LABS: ALANINE AMINOTRANSFERASE 102 U/L (12-78); ALBUMIN 4.1 g/dL (3.4-5.0); ALKALINE PHOSPHATASE 106 U/L (46-116); ANION GAP 11 mmol/L (8-16); ASPARTATE AMINOTRANSFERASE 60 U/L (15-37); BILIRUBIN,TOTAL 1.9 mg/dL (0.1-1.0); CALCIUM, TOTAL 9.5 mg/dL (8.8-10.5); CARBON DIOXIDE 27 mmol/L (22-29); CHLORIDE 97 mmol/L (98-107); CREATININE 0.77 mg/dL (0.60-1.30); GLOMERULAR FILTR. RATE CALC > 60 mL/min (>60); GLUCOSE,RANDOM 82 mg/dL (70-110); POTASSIUM 3.6 mmol/L (3.5-5.1); SODIUM SERUM 135 mmol/L (136-145); TOTAL PROTEIN, SERUM 9.7 g/dL (6.4-8.2); UREA NITROGEN, BLOOD 20 mg/dL (7-18)
[2023-07-29 16:49] LABS: ALCOHOL, BLOOD (SERUM) < 3 mg/dL (0-10)
[2023-07-29] MEDS ORDERED: ZOLPIDEM TARTRATE 10 MG TABLET PO PRN (22:00)
[2023-07-30 09:19] VITALS: BP 126/72; PULSE 78; RESP 17; TEMP 98; O2SAT 98
[2023-07-30] MEDS: LORazepam 2 MG TABLET PO PRN (17:47)
[2023-07-30] MEDS: HALOPERIDOL 5 MG TABLET PO PRN (17:47)
[2023-07-30 20:57] VITALS: BP 104/60; PULSE 97; RESP 17; TEMP 97.6; O2SAT 98
[2023-07-30] MEDS ORDERED: ALBUTEROL SULFATE HFA 90 MCG/PUFF 8 GM INHALER IH PRN (21:15)
[2023-07-30] MEDS ORDERED: DOCUSATE SODIUM 100 MG CAPSULE PO PRN (21:15)
[2023-07-30] MEDS ORDERED: MAGNESIUM HYDROXIDE SUSPENSION 30 ML UDCUP PO PRN (21:15)
[2023-07-30] MEDS ORDERED: MAG HYDROX/ALUMINUM HYD/SIMETH ES 30 ML SUSPENSION UDCUP PO PRN (21:15)
[2023-07-30] MEDS ORDERED: CloNIDine HCL 0.1 MG TABLET PO PRN (21:15)
[2023-07-30] MEDS ORDERED: OMEPRAZOLE 20 MG CAPSULE PO PRN (21:15)
[2023-07-30] MEDS ORDERED: BENZOCAINE/MENTHOL LOZENGE PO PRN (21:15)
[2023-07-30] MEDS ORDERED: PETROLATUM,WHITE 28 GM JELLY TP PRN (21:15)
[2023-07-30] MEDS ORDERED: BACITRACIN 28 GM OINTMENT TP PRN (21:15)
[2023-07-30] MEDS ORDERED: ONDANSETRON HCL 4 MG TABLET PO PRN (21:15)
[2023-07-30] MEDS ORDERED: LOPERAMIDE HCL 2 MG CAPSULE PO PRN (21:15)
[2023-07-30] MEDS ORDERED: ACETAMINOPHEN 325 MG TABLET PO PRN (21:15)
[2023-07-30] MEDS ORDERED: IBUPROFEN 600 MG TABLET PO PRN (21:15)
[2023-07-30] MEDS: OLANZapine 7.5 MG TABLET PO SCH (21:21)
[2023-07-31 08:12] VITALS: BP 105/60; PULSE 95; RESP 17; TEMP 98; O2SAT 98
[2023-07-31 20:58] VITALS: BP 119/65; PULSE 71; RESP 17; TEMP 98
[2023-07-31] MEDS: LORazepam 2 MG TABLET PO PRN (21:47)
[2023-07-31] MEDS: HALOPERIDOL 5 MG TABLET PO PRN (21:47)
[2023-07-31] MEDS: OLANZapine 7.5 MG TABLET PO SCH (21:48)
[2023-08-01 08:05] VITALS: BP 106/58; PULSE 95; RESP 19; TEMP 97.9; O2SAT 100
[2023-08-01] MEDS: OLANZapine 7.5 MG TABLET PO SCH (20:08)
[2023-08-01 20:21] VITALS: BP 106/64; PULSE 93; RESP 16; TEMP 98.5; O2SAT 97
[2023-08-02 08:09] VITALS: BP 104/63; PULSE 62; RESP 17; TEMP 97.7; O2SAT 98
[2023-08-02 16:18] VITALS: BP 117/73; PULSE 98; RESP 18
[2023-08-02] MEDS: LORazepam 2 MG TABLET PO PRN (16:18)
[2023-08-02 20:02] VITALS: BP 110/64; PULSE 84; RESP 16; TEMP 97.8; O2SAT 98
[2023-08-02] MEDS: OLANZapine 7.5 MG TABLET PO SCH (21:23)
[2023-08-03] MEDS: LORazepam 2 MG TABLET PO PRN (08:11)
[2023-08-03 08:16] VITALS: BP 92/59; PULSE 80; RESP 17; TEMP 97.8; O2SAT 100
[2023-08-03 20:05] VITALS: BP 110/60; PULSE 93; RESP 17; TEMP 97.9; O2SAT 97
[2023-08-03] MEDS: OLANZapine 7.5 MG TABLET PO SCH (20:08)
[2023-08-04 09:14] VITALS: BP 116/69; PULSE 90; RESP 17; TEMP 97.6; O2SAT 97
[2023-08-04] MEDS: OLANZapine 7.5 MG TABLET PO SCH (20:29)
[2023-08-04 21:11] VITALS: BP 115/80; PULSE 88; RESP 18; TEMP 97.6; O2SAT 100
[2023-08-04 21:26] LABS: GLUCOMETER DEV NAME(LOC) POC.BV; POC SARS-COV2 AG, FIA POSITIVE (NEGATIVE)
[2023-08-05 08:04] VITALS: BP 107/67; PULSE 73; RESP 17; TEMP 96.9; O2SAT 99
[2023-08-05 20:08] VITALS: BP 112/65; PULSE 92; RESP 18; TEMP 97.6; O2SAT 100
[2023-08-05] MEDS: OLANZapine 7.5 MG TABLET PO SCH (20:54)
[2023-08-06] VITALS: TEMP 98.6
[2023-08-06 08:03] VITALS: BP 94/60; PULSE 75; RESP 17; TEMP 97.5; O2SAT 99
[2023-08-06 08:05] LABS: COVID AG,FIA SOURCE NASAL SWAB
[2023-08-06 08:47] LABS: SARS-COV2 (COVID) ANTIGEN,FIA Positive (Negative)
[2023-08-06 20:09] VITALS: BP 100/61; PULSE 67; RESP 18; TEMP 98.5; O2SAT 97
[2023-08-06] MEDS: OLANZapine 7.5 MG TABLET PO SCH (21:25)
[2023-08-07 09:56] VITALS: BP 104/53; PULSE 71; RESP 18; TEMP 98.6; O2SAT 97
[2023-08-07 20:00] VITALS: BP 110/83; PULSE 82; RESP 18; TEMP 97.5; O2SAT 99
[2023-08-07] MEDS: OLANZapine 7.5 MG TABLET PO SCH (21:01)
[2023-08-08 07:08] LABS: COVID AG,FIA SOURCE NASAL SWAB
[2023-08-08 07:28] LABS: SARS-COV2 (COVID) ANTIGEN,FIA Negative (Negative)
[2023-08-08 10:45] VITALS: BP 112/85; PULSE 78; RESP 18; TEMP 98.6; O2SAT 99
[2023-08-08 21:00] VITALS: BP 121/78; PULSE 81; RESP 18; TEMP 97.6; O2SAT 99
[2023-08-08] MEDS: OLANZapine 7.5 MG TABLET PO SCH (21:14)
[2023-08-09 03:33] VITALS: BP 121/79; PULSE 82; RESP 18; TEMP 97.1; O2SAT 98
[2023-08-09 07:25] VITALS: BP 121/79; PULSE 82; RESP 18; TEMP 97.5; O2SAT 96
[2023-08-09 10:02] VITALS: BP 102/61; PULSE 73; RESP 19; TEMP 98; O2SAT 100
[2023-08-09 12:05] VITALS: TEMP 98.3
[2023-08-09 20:39] VITALS: BP 122/85; PULSE 83; RESP 18; TEMP 98.5; O2SAT 99
[2023-08-09] MEDS: OLANZapine 7.5 MG TABLET PO SCH (20:49)
[2023-08-10] VITALS (7 sets, daily range): BP systolic 96–110; BP diastolic 54–75; PULSE 65–87; RESP 18; TEMP 97.8–98.6; O2SAT 98–99
[2023-08-10 06:47] LABS: COVID AG,FIA SOURCE NASAL SWAB
[2023-08-10 07:05] LABS: SARS-COV2 (COVID) ANTIGEN,FIA Negative (Negative)
[2023-08-10] MEDS: OLANZapine 7.5 MG TABLET PO SCH (20:59)
[2023-08-11 07:16] VITALS: RESP 18
[2023-08-11 08:54] VITALS: BP 107/50; PULSE 80; RESP 16; TEMP 98.2; O2SAT 99
== END 2023-08-11 12:15 | disposition home or self-care (01) | DRG 750 ==
LOC: EMS 15:23 → B2S 07-30 07:17 → 3EI 08-05 12:37
PROVIDERS: ADMIT Psychiatry & Neurology Psychiatry; ATTEND Psychiatry & Neurology Psychiatry
DX: F25.9 Schizoaffective disorder, unspecified (principal); U07.1 COVID-19; R45.851 Suicidal ideations; E78.5 Hyperlipidemia, unspecified; F41.9 Anxiety disorder, unspecified; G47.00 Insomnia, unspecified; K59.00 Constipation, unspecified; F19.10 Other psychoactive substance abuse, uncomplicated; F17.210 Nicotine dependence, cigarettes, uncomplicated; Z59.00 Homelessness unspecified; Z56.0 Unemployment, unspecified; Z79.899 Other long term (current) drug therapy
CPT/HCPCS: 80053; 85025; 87081; 99285; G0480

== ENCOUNTER 2024-02-25 07:55 | Inpatient (IN) | payer MEDICAID, OTHER ==
[~2024-02-25] VITALS: Ht 167.6 cm; Wt 65.3 kg
[~2024-02-25 07:55] MED LIST changes: +OLAN5TAB94 PO; -OLAN7.5T22 PO
[2024-02-25 08:41] LABS: ANION GAP 11 mmol/L (8-16); CALCIUM, TOTAL 9.3 mg/dL (8.8-10.5); CARBON DIOXIDE 25 mmol/L (22-29); CHLORIDE 100 mmol/L (98-107); CREATININE 1.02 mg/dL (0.60-1.30); GLOMERULAR FILTR. RATE CALC > 60 mL/min (>60); GLUCOSE,RANDOM 87 mg/dL (70-110); POTASSIUM 3.9 mmol/L (3.5-5.1); SODIUM SERUM 136 mmol/L (136-145); UREA NITROGEN, BLOOD 20 mg/dL (7-18)
[2024-02-25 08:47] LABS: BASOPHILS % (AUTO) 0.3 % (0.0-2.0); EOSINOPHILS % (AUTO) 1.4 % (1.0-6.0); HEMATOCRIT 39.7 % (41-53); HEMOGLOBIN 13.4 g/dL (13.5-17.5); LYMPHOCYTES # (AUTO) 0.7 K/uL (1.0-4.8); LYMPHOCYTES % (AUTO) 9.6 % (22.0-44.0); MEAN CORPUSCULAR HEMOGLOBIN 29.6 pg (26.0-34.0); MEAN CORPUSCULAR HGB CONC 33.6 G/dL (31.0-37.0); MEAN CORPUSCULAR VOLUME 88 fL (80-100); MONOCYTES # (AUTO) 0.6 K/uL (0.1-1.0); NEUTROPHILS # (AUTO) 5.5 K/uL (1.8-7.7); NEUTROPHILS % (AUTO) 79.7 % (40.0-70.0); PLATELET COUNT (AUTO) 233 K/uL (150-450); RED BLOOD CELL COUNT(AUTO) 4.52 MIL/uL (4.50-5.90); RED CELL DISTRIBUTION WIDTH 14.1 % (11.5-14.5); WHITE BLOOD COUNT (AUTO) 6.9 K/uL (4.5-11.0)
[2024-02-25 08:55] LABS: ALCOHOL, BLOOD (SERUM) < 3 mg/dL (0-10)
[2024-02-25] MEDS ORDERED: ZOLPIDEM TARTRATE 10 MG TABLET PO PRN (09:45)
[2024-02-25] MEDS ORDERED: HALOPERIDOL 5 MG TABLET PO PRN (09:45)
[2024-02-25] MEDS ORDERED: LORazepam 2 MG TABLET PO PRN (09:45)
[2024-02-25] MEDS: HALOPERIDOL 5 MG TABLET PO PRN (13:08)
[2024-02-25] MEDS: LORazepam 2 MG TABLET PO PRN (13:08)
[2024-02-25 13:46] LABS: COVID AG,FIA SOURCE NASAL SWAB
[2024-02-25 14:03] LABS: SARS-COV2 (COVID) ANTIGEN,FIA Negative (Negative)
[2024-02-25] MEDS ORDERED: MAGNESIUM HYDROXIDE SUSPENSION 30 ML UDCUP PO PRN (15:00)
[2024-02-25] MEDS ORDERED: TUBERCULIN, PURIFIED PROTEIN DERIVATIVE 5 TU/0.1 ML SYRINGE ID ONE (15:00)
[2024-02-25] MEDS ORDERED: PROMETHAZINE HCL 25 MG TABLET PO PRN (15:00)
[2024-02-25] MEDS ORDERED: GuaiFENesin/D-METHORPHAN [SUGAR-FREE] 200-20MG/10 ML SYRUP UDCUP PO PRN (15:00)
[2024-02-25] MEDS ORDERED: MAG HYDROX/ALUMINUM HYD/SIMETH ES 30 ML SUSPENSION UDCUP PO PRN (15:00)
[2024-02-25] MEDS ORDERED: LOPERAMIDE HCL 2 MG CAPSULE PO PRN (15:00)
[2024-02-25] MEDS: PALIPERIDONE PALMITATE 234 MG/1.5 ML SYRINGE IM ONE (15:00)
[2024-02-25] MEDS ORDERED: OLANZapine 5 MG RAPDIS TABLET PO PRN (15:00)
[2024-02-25] MEDS ORDERED: ACETAMINOPHEN 325 MG TABLET PO PRN (15:00)
[2024-02-25] MEDS: THIAMINE 100 MG TABLET PO SCH (16:50)
[2024-02-25 17:22] VITALS: BP 113/59; PULSE 105; RESP 18; TEMP 98; O2SAT 99
[2024-02-25] MEDS: MELATONIN 5 MG TABLET PO SCH (21:42)
[2024-02-25] MEDS: OLANZapine 5 MG RAPDIS TABLET PO SCH (21:42)
[2024-02-25 22:08] VITALS: BP 115/77; PULSE 102; RESP 18; TEMP 98.1; O2SAT 98
[2024-02-26 07:23] LABS: HEMOGLOBIN A1C 5.3 % (3.8-5.6)
[2024-02-26 07:46] LABS: CHOL/HDL RATIO 3.3 (4.2-7.3); FREE T4 (FREE THYROXINE) 1.19 ng/dL (0.76-1.46); THYROID STIMULATING HORMONE 1.99 uIU/mL (0.36-3.74)
[2024-02-26] MEDS: MULTIVITAMINS WITH MINERALS, THERAPEUTIC TABLET PO SCH (08:31)
[2024-02-26] MEDS: FLUoxetine HCL 20 MG CAPSULE PO SCH (08:31)
[2024-02-26] MEDS: FOLIC ACID 1 MG TABLET PO SCH (08:31)
[2024-02-26] MEDS: NALTREXONE HCL 50 MG TABLET PO SCH (08:31)
[2024-02-26] MEDS ORDERED: MAGNESIUM HYDROXIDE SUSPENSION 30 ML UDCUP PO PRN (10:00)
[2024-02-26] MEDS ORDERED: CloNIDine HCL 0.1 MG TABLET PO PRN (10:00)
[2024-02-26] MEDS ORDERED: MAG HYDROX/ALUMINUM HYD/SIMETH ES 30 ML SUSPENSION UDCUP PO PRN (10:00)
[2024-02-26] MEDS ORDERED: DOCUSATE SODIUM 100 MG CAPSULE PO PRN (10:00)
[2024-02-26] MEDS ORDERED: IBUPROFEN 600 MG TABLET PO PRN (10:00)
[2024-02-26] MEDS ORDERED: PETROLATUM,WHITE 28 GM JELLY TP PRN (10:00)
[2024-02-26] MEDS ORDERED: ACETAMINOPHEN 325 MG TABLET PO PRN (10:00)
[2024-02-26] MEDS ORDERED: OMEPRAZOLE 20 MG CAPSULE PO PRN (10:00)
[2024-02-26] MEDS ORDERED: BENZOCAINE/MENTHOL LOZENGE PO PRN (10:00)
[2024-02-26] MEDS ORDERED: ALBUTEROL SULFATE HFA 90 MCG/PUFF 8 GM INHALER IH PRN (10:00)
[2024-02-26] MEDS ORDERED: BACITRACIN 28 GM OINTMENT TP PRN (10:00)
[2024-02-26] MEDS ORDERED: ONDANSETRON HCL 4 MG TABLET PO PRN (10:00)
[2024-02-26] MEDS ORDERED: LOPERAMIDE HCL 2 MG CAPSULE PO PRN (10:00)
[2024-02-26 10:17] VITALS: BP 110/81; PULSE 73; RESP 18; TEMP 97.5; O2SAT 97
[2024-02-26 21:26] VITALS: BP 90/61; PULSE 103; RESP 19; TEMP 97.2
[2024-02-27 09:25] VITALS: BP 110/58; PULSE 88; RESP 18; TEMP 97.9; O2SAT 99
[2024-02-27 20:56] VITALS: BP 99/56; PULSE 77; RESP 19; TEMP 98.7; O2SAT 99
[2024-02-27] MEDS: HydrOXYzine PAMOATE 50 MG CAPSULE PO PRN (21:30)
[2024-02-27] MEDS: ZOLPIDEM TARTRATE 10 MG TABLET PO PRN (23:06)
[2024-02-28 16:02] VITALS: BP 86/50; PULSE 98; RESP 19; TEMP 97.9; O2SAT 98
[2024-02-28 20:30] VITALS: BP 96/60; PULSE 87; RESP 18; TEMP 98.2; O2SAT 97
[2024-02-29] MEDS ORDERED: PALIPERIDONE PALMITATE 156 MG/ML SYRINGE IM ONE (09:00)
[2024-02-29 09:26] VITALS: BP 109/64; PULSE 95; RESP 17; TEMP 98; O2SAT 98
[2024-02-29 20:56] VITALS: BP 106/59; PULSE 85; RESP 18; TEMP 97.9
[2024-03-01 08:00] VITALS: BP 98/61; PULSE 91; RESP 18; TEMP 97.4; O2SAT 98
[2024-03-01 21:56] VITALS: BP 100/50; PULSE 57; RESP 18; TEMP 98.7; O2SAT 98
[2024-03-02 13:16] VITALS: PULSE 73; RESP 18; TEMP 97.5; O2SAT 98
[2024-03-02] MEDS ORDERED: OLAN5TAB94 PO (14:54)
== END 2024-03-02 11:20 | disposition home or self-care (01) | DRG 750 ==
LOC: EMS 07:55 → 3EI 13:31
PROVIDERS: ADMIT Psychiatry & Neurology Psychiatry; ATTEND Psychiatry & Neurology Psychiatry
PROC: GZHZZZZ Group Psychotherapy (ICD-10-PCS; principal; 2024-02-25)
PROC: GZ51ZZZ Individual Psychotherapy, Behavioral (ICD-10-PCS; 2024-02-25)
DX: F25.1 Schizoaffective disorder, depressive type (principal); G93.41 Metabolic encephalopathy; R45.851 Suicidal ideations; B19.20 Unspecified viral hepatitis C without hepatic coma; F41.9 Anxiety disorder, unspecified; Z20.822 Contact with and (suspected) exposure to COVID-19; G47.00 Insomnia, unspecified; K59.00 Constipation, unspecified; F17.210 Nicotine dependence, cigarettes, uncomplicated; E78.00 Pure hypercholesterolemia, unspecified; J44.9 Chronic obstructive pulmonary disease, unspecified; Z91.199 Patient's noncompliance with other medical treatment and regimen due to unspecified reason
CPT/HCPCS: 80048; 80061; 83036; 84439; 84443; 85025; 86592; 99285; G0480

== ENCOUNTER 2024-03-21 20:29 | Inpatient (IN) | payer MEDICAID ==
[~2024-03-21] VITALS: Ht 167.6 cm; Wt 73.5 kg
[2024-03-21 21:06] LABS: COVID AG,FIA SOURCE NASAL SWAB
[2024-03-21 21:11] LABS: APPEARANCE,URINE CLEAR (CLEAR); BILIRUBIN,URINE NEGATIVE (NEGATIVE); COLOR,URINE YELLOW (YELLOW); GLUCOSE, URINE (UA) NEGATIVE (NEGATIVE); LEUKOCYTE ESTERASE ,URINE NEGATIVE (NEGATIVE); NITRATE,URINE NEGATIVE (NEGATIVE); OCCULT BLOOD,URINE NEGATIVE (NEGATIVE); PROTEIN,URINE TRACE mg/dL (NEGATIVE); SPECIFIC GRAVITIY, URINE 1.019 (1.003-1.030)
[2024-03-21 21:20] LABS: ALCOHOL, URINE DRUG SCREEN NEGATIVE (NEGATIVE); AMPHET/METH SCREEN,URINE POSITIVE (NEGATIVE); BARBITURATE SCREEN, URINE NEGATIVE (NEGATIVE); BENZODIAZEPINES SCREEN,URINE NEGATIVE (NEGATIVE); CANNABINOID SCREEN,URINE NEGATIVE (NEGATIVE); COCAINE SCREEN,URINE NEGATIVE (NEGATIVE); METHADONE SCREEN, URINE NEGATIVE (NEGATIVE); OPIATE SCREEN,URINE NEGATIVE (NEGATIVE); PHENCYCLIDINE SCREEN,URINE NEGATIVE (NEGATIVE)
[2024-03-21 21:26] LABS: SARS-COV2 (COVID) ANTIGEN,FIA Negative (Negative)
[2024-03-21 21:38] LABS: HEMATOCRIT 36.1 % (41-53); HEMOGLOBIN 12.2 g/dL (13.5-17.5); MEAN CORPUSCULAR HEMOGLOBIN 29.4 pg (26.0-34.0); MEAN CORPUSCULAR HGB CONC 33.8 G/dL (31.0-37.0); MEAN CORPUSCULAR VOLUME 87 fL (80-100); PLATELET COUNT (AUTO) 223 K/uL (150-450); RED BLOOD CELL COUNT(AUTO) 4.15 MIL/uL (4.50-5.90); RED CELL DISTRIBUTION WIDTH 13.3 % (11.5-14.5); WHITE BLOOD COUNT (AUTO) 5.2 K/uL (4.5-11.0)
[2024-03-21 21:47] LABS: ANION GAP 12 mmol/L (8-16); CALCIUM, TOTAL 8.1 mg/dL (8.8-10.5); CARBON DIOXIDE 23 mmol/L (22-29); CHLORIDE 101 mmol/L (98-107); CREATININE 0.78 mg/dL (0.60-1.30); GLOMERULAR FILTR. RATE CALC > 60 mL/min (>60); GLUCOSE,RANDOM 78 mg/dL (70-110); POTASSIUM 3.3 mmol/L (3.5-5.1); SODIUM SERUM 136 mmol/L (136-145); UREA NITROGEN, BLOOD 11 mg/dL (7-18)
[2024-03-21 21:50] LABS: RBC,URINE None Seen /HPF (0-2); WBC,URINE None Seen /HPF (0-5)
[2024-03-21 21:51] LABS: BACTERIA,URINE None Seen /HPF (None Seen); SQUAMOUS EPITHELIAL CELL,UR Few /LPF (None Seen)
[2024-03-21 22:01] LABS: BAND NEUTROPHILS % (MANUAL) 0 % (0-5)
[2024-03-21 22:07] LABS: EOSINOPHILS % (MANUAL) 10 % (1-6); LYMPHOCYTES % (MANUAL) 19 % (22-44); MONOCYTES % (MANUAL) 7 % (2-9); SEGMENTED NEUTROPHILS % 64 % (40-70); TOTAL CELLS COUNTED 100
[2024-03-21] MEDS: OLANZapine 10 MG TABLET PO ONE (23:31)
[2024-03-21] MEDS ORDERED: HALOPERIDOL 5 MG TABLET PO PRN (23:45)
[2024-03-22] MEDS: POTASSIUM CHLORIDE 20 MEQ ER TABLET PO ONE (00:59)
[2024-03-22 02:11] VITALS: BP 105/74; PULSE 97; RESP 18; TEMP 97.5; O2SAT 99
[2024-03-22 09:47] VITALS: BP 100/60; PULSE 60; RESP 16; TEMP 97.6; O2SAT 98
[2024-03-22] MEDS ORDERED: ALBUTEROL SULFATE HFA 90 MCG/PUFF 8 GM INHALER IH PRN (10:15)
[2024-03-22] MEDS ORDERED: MAG HYDROX/ALUMINUM HYD/SIMETH ES 30 ML SUSPENSION UDCUP PO PRN (10:15)
[2024-03-22] MEDS ORDERED: OMEPRAZOLE 20 MG CAPSULE PO PRN (10:15)
[2024-03-22] MEDS ORDERED: MAGNESIUM HYDROXIDE SUSPENSION 30 ML UDCUP PO PRN (10:15)
[2024-03-22] MEDS ORDERED: IBUPROFEN 600 MG TABLET PO PRN (10:15)
[2024-03-22] MEDS ORDERED: ONDANSETRON HCL 4 MG TABLET PO PRN (10:15)
[2024-03-22] MEDS ORDERED: PETROLATUM,WHITE 28 GM JELLY TP PRN (10:15)
[2024-03-22] MEDS ORDERED: ACETAMINOPHEN 325 MG TABLET PO PRN (10:15)
[2024-03-22] MEDS ORDERED: BENZOCAINE/MENTHOL LOZENGE PO PRN (10:15)
[2024-03-22] MEDS ORDERED: LOPERAMIDE HCL 2 MG CAPSULE PO PRN (10:15)
[2024-03-22] MEDS ORDERED: CloNIDine HCL 0.1 MG TABLET PO PRN (10:15)
[2024-03-22] MEDS ORDERED: BACITRACIN 28 GM OINTMENT TP PRN (10:15)
[2024-03-22] MEDS ORDERED: DOCUSATE SODIUM 100 MG CAPSULE PO PRN (10:15)
[2024-03-22 20:06] VITALS: BP 99/53; PULSE 66; RESP 17; TEMP 97.8; O2SAT 99
[2024-03-23 08:16] VITALS: BP 109/64; PULSE 69; RESP 17; TEMP 97.3; O2SAT 99
[2024-03-23 08:20] LABS: ANION GAP 8 mmol/L (8-16); CALCIUM, TOTAL 8.1 mg/dL (8.8-10.5); CARBON DIOXIDE 25 mmol/L (22-29); CHLORIDE 103 mmol/L (98-107); CREATININE 0.71 mg/dL (0.60-1.30); GLOMERULAR FILTR. RATE CALC > 60 mL/min (>60); GLUCOSE,RANDOM 89 mg/dL (70-110); POTASSIUM 3.7 mmol/L (3.5-5.1); SODIUM SERUM 136 mmol/L (136-145); UREA NITROGEN, BLOOD 9 mg/dL (7-18)
[2024-03-23 20:02] VITALS: BP 107/62; PULSE 70; RESP 16; TEMP 97.8; O2SAT 100
[2024-03-23] MEDS: OLANZapine 7.5 MG TABLET PO SCH (21:21)
[2024-03-23] MEDS: CHLORHEXIDINE GLUCONATE 2% TOWELETTE [2'S/6'S] TP SCH (21:22)
[2024-03-23] MEDS: ETHYL ALCOHOL 62% ANTISEPTIC NASAL SANITIZER 0.6 ML AMPUL NASAL SCH (21:22)
[2024-03-24 08:08] VITALS: BP 106/56; PULSE 70; RESP 18; TEMP 97.7; O2SAT 100
[2024-03-24] MEDS ORDERED: LORazepam 2 MG/ML VIAL IM ONE (15:30)
[2024-03-24] MEDS ORDERED: HALOPERIDOL LACTATE 5 MG/ML VIAL IM ONE (15:30)
[2024-03-24] MEDS ORDERED: DiphenhydrAMINE HCL 50 MG/ML VIAL IM ONE (15:30)
[2024-03-24 20:06] VITALS: BP 100/52; PULSE 63; RESP 17; TEMP 98.2; O2SAT 100
[2024-03-25 09:25] VITALS: BP 106/60; PULSE 86; RESP 17; TEMP 97.5; O2SAT 98
[2024-03-25 20:27] VITALS: BP 101/92; PULSE 83; RESP 19; TEMP 97.5; O2SAT 98
[2024-03-26 08:04] VITALS: BP 100/60; PULSE 75; RESP 16; TEMP 97.7; O2SAT 97
[2024-03-26 20:20] VITALS: BP 110/68; PULSE 72; RESP 17; TEMP 98; O2SAT 97
[2024-03-26] MEDS: LORazepam 2 MG TABLET PO PRN (20:30)
[2024-03-26] MEDS: ZOLPIDEM TARTRATE 10 MG TABLET PO PRN (20:30)
[2024-03-27 08:03] VITALS: BP 100/67; PULSE 91; RESP 16; TEMP 97.7; O2SAT 96
[2024-03-27 20:16] VITALS: BP 103/56; PULSE 75; RESP 16; TEMP 98.6; O2SAT 100
[2024-03-28 08:01] VITALS: BP 105/60; PULSE 73; RESP 17; TEMP 98; O2SAT 98
[2024-03-28 20:07] VITALS: BP 85/49; PULSE 85; RESP 18; TEMP 98.6; O2SAT 96
[2024-03-29 08:15] VITALS: BP 104/60; PULSE 93; RESP 16; TEMP 97.5; O2SAT 95
[2024-03-29 20:14] VITALS: BP 92/60; PULSE 82; RESP 16; TEMP 97.8; O2SAT 98
[2024-03-30 08:07] VITALS: BP 105/60; PULSE 68; RESP 16; TEMP 97.5; O2SAT 97
[2024-03-30 20:09] VITALS: BP 105/55; PULSE 89; RESP 16; TEMP 97.3; O2SAT 96
[2024-03-30 20:50] VITALS: BP 110/67; PULSE 103; RESP 16; TEMP 97.1; O2SAT 98
[2024-03-31 08:11] VITALS: BP 101/61; PULSE 91; RESP 16; TEMP 97.6; O2SAT 98
== END 2024-03-31 17:49 | disposition home or self-care (01) | DRG 750 ==
LOC: EMS 20:29 → B3A 03-22 00:13 → B2S 03-30 20:49
PROVIDERS: ADMIT Psychiatry & Neurology Psychiatry; ATTEND Psychiatry & Neurology Psychiatry
DX: F25.9 Schizoaffective disorder, unspecified (principal); R45.851 Suicidal ideations; F41.9 Anxiety disorder, unspecified; Z20.822 Contact with and (suspected) exposure to COVID-19; B19.20 Unspecified viral hepatitis C without hepatic coma; G47.00 Insomnia, unspecified; K59.00 Constipation, unspecified; E78.5 Hyperlipidemia, unspecified; Z79.899 Other long term (current) drug therapy; Z56.0 Unemployment, unspecified; Z59.00 Homelessness unspecified
CPT/HCPCS: 80048; 80307; 81001; 85025; 87081; 99285; G0480; 36415-L1; 36415-TC; Z7502; Z7610

== ENCOUNTER 2024-04-07 09:55 | Inpatient (IN) | payer MEDICAID, OTHER ==
[~2024-04-07] VITALS: Ht 167.6 cm; Wt 68.5 kg
[2024-04-07 10:01] VITALS: O2SAT 98
[2024-04-07 10:26] LABS: HEMATOCRIT 37.3 % (41-53); HEMOGLOBIN 12.4 g/dL (13.5-17.5); MEAN CORPUSCULAR HEMOGLOBIN 29.4 pg (26.0-34.0); MEAN CORPUSCULAR HGB CONC 33.2 G/dL (31.0-37.0); MEAN CORPUSCULAR VOLUME 89 fL (80-100); PLATELET COUNT (AUTO) 212 K/uL (150-450); RED BLOOD CELL COUNT(AUTO) 4.21 MIL/uL (4.50-5.90); RED CELL DISTRIBUTION WIDTH 13.7 % (11.5-14.5); WHITE BLOOD COUNT (AUTO) 4.3 K/uL (4.5-11.0)
[2024-04-07 10:49] LABS: ANION GAP 12 mmol/L (8-16); CALCIUM, TOTAL 8.4 mg/dL (8.8-10.5); CARBON DIOXIDE 23 mmol/L (22-29); CHLORIDE 100 mmol/L (98-107); CREATININE 0.75 mg/dL (0.60-1.30); GLOMERULAR FILTR. RATE CALC > 60 mL/min (>60); GLUCOSE,RANDOM 74 mg/dL (70-110); POTASSIUM 3.8 mmol/L (3.5-5.1); SODIUM SERUM 135 mmol/L (136-145); UREA NITROGEN, BLOOD 11 mg/dL (7-18)
[2024-04-07 10:59] LABS: ALCOHOL, BLOOD (SERUM) < 3 mg/dL (0-10)
[2024-04-07] MEDS ORDERED: HALOPERIDOL 5 MG TABLET PO PRN (12:15)
[2024-04-07 12:38] LABS: BAND NEUTROPHILS % (MANUAL) 0 % (0-5)
[2024-04-07 12:39] LABS: EOSINOPHILS % (MANUAL) 9 % (1-6); LYMPHOCYTES % (MANUAL) 28 % (22-44); MONOCYTES % (MANUAL) 12 % (2-9); SEGMENTED NEUTROPHILS % 51 % (40-70); TOTAL CELLS COUNTED 100
[2024-04-07 13:10] LABS: COVID AG,FIA SOURCE NASAL SWAB
[2024-04-07 14:05] LABS: SARS-COV2 (COVID) ANTIGEN,FIA Negative (Negative)
[2024-04-07 15:10] VITALS: BP 115/64; PULSE 83; RESP 16; TEMP 97.7; O2SAT 100
[2024-04-07 20:49] VITALS: BP 96/60; PULSE 74; RESP 18; TEMP 97.4; O2SAT 100
[2024-04-08] MEDS: OLANZapine 5 MG TABLET PO SCH (08:01)
[2024-04-08 09:15] VITALS: BP 122/62; PULSE 73; RESP 18; TEMP 97.8; O2SAT 99
[2024-04-08 20:43] VITALS: BP 117/65; PULSE 79; RESP 18; TEMP 96.9; O2SAT 100
[2024-04-09 08:13] VITALS: BP 112/70; PULSE 94; RESP 16; TEMP 97.6; O2SAT 91
[2024-04-09] MEDS: LORazepam 2 MG TABLET PO PRN (18:40)
[2024-04-09] MEDS: ZOLPIDEM TARTRATE 10 MG TABLET PO PRN (20:02)
[2024-04-09 20:28] VITALS: BP 118/72; PULSE 88; RESP 17; TEMP 98; O2SAT 98
[2024-04-10 08:34] VITALS: BP 101/60; PULSE 83; RESP 16; TEMP 97.4; O2SAT 100
[2024-04-10 21:08] VITALS: BP 96/52; PULSE 70; RESP 16; TEMP 97.6; O2SAT 97
[2024-04-11 08:18] VITALS: BP 106/62; PULSE 81; RESP 16; TEMP 97.7; O2SAT 97
[2024-04-11 20:52] VITALS: BP 98/55; PULSE 78; RESP 16; TEMP 97.3; O2SAT 98
[2024-04-12 08:10] VITALS: BP 107/58; PULSE 75; RESP 19; TEMP 98; O2SAT 97
[2024-04-12] MEDS: PALIPERIDONE PALMITATE 234 MG/1.5 ML SYRINGE IM ONE (16:11)
[2024-04-12 20:00] VITALS: BP 108/64; PULSE 100; RESP 16; TEMP 98.3; O2SAT 98
[2024-04-12] MEDS: MELATONIN 5 MG TABLET PO SCH (20:27)
[2024-04-13] MEDS: OLANZapine 5 MG RAPDIS TABLET PO PRN (08:04)
[2024-04-13] MEDS: NALTREXONE HCL 50 MG TABLET PO SCH (08:04)
[2024-04-13 08:16] VITALS: BP 103/59; PULSE 70; RESP 17; TEMP 97.7; O2SAT 96
[2024-04-13] MEDS ORDERED: PROMETHAZINE HCL 25 MG TABLET PO PRN (17:15)
[2024-04-13] MEDS ORDERED: ACETAMINOPHEN 325 MG TABLET PO PRN (17:15)
[2024-04-13] MEDS ORDERED: MAGNESIUM HYDROXIDE SUSPENSION 30 ML UDCUP PO PRN (17:15)
[2024-04-13] MEDS ORDERED: LOPERAMIDE HCL 2 MG CAPSULE PO PRN ×2 (17:15)
[2024-04-13] MEDS ORDERED: HydrOXYzine PAMOATE 50 MG CAPSULE PO PRN (17:15)
[2024-04-13] MEDS ORDERED: MAG HYDROX/ALUMINUM HYD/SIMETH ES 30 ML SUSPENSION UDCUP PO PRN (17:15)
[2024-04-13 20:24] VITALS: BP 111/69; PULSE 108; RESP 16; TEMP 97.6; O2SAT 95
[2024-04-14 08:20] VITALS: BP 111/58; PULSE 84; RESP 19; TEMP 98; O2SAT 97
[2024-04-14] MEDS: MULTIVITAMINS WITH MINERALS, THERAPEUTIC TABLET PO SCH (08:41)
[2024-04-14] MEDS: THIAMINE 100 MG TABLET PO SCH (08:41)
[2024-04-14] MEDS: FOLIC ACID 1 MG TABLET PO SCH (08:41)
[2024-04-14] MEDS: OLANZapine 5 MG TABLET PO SCH (08:46)
[2024-04-14 08:51] LABS: HEMOGLOBIN A1C 5.2 % (3.8-5.6)
[2024-04-14 09:19] LABS: CHOL/HDL RATIO 3.2 (4.2-7.3); FREE T4 (FREE THYROXINE) 0.84 ng/dL (0.76-1.46); THYROID STIMULATING HORMONE 4.05 uIU/mL (0.36-3.74)
[2024-04-14] MEDS: TUBERCULIN, PURIFIED PROTEIN DERIVATIVE 5 TU/0.1 ML SYRINGE ID ONE (13:33)
[2024-04-14 20:37] VITALS: BP 112/69; PULSE 106; RESP 18; TEMP 97.7; O2SAT 98
[2024-04-15 08:26] VITALS: RESP 18
[2024-04-15 20:35] VITALS: BP 125/74; PULSE 86; RESP 18; TEMP 97.7
[2024-04-16 08:15] VITALS: BP 109/69; PULSE 89; RESP 19; TEMP 97.9; O2SAT 97
[2024-04-16] MEDS: OLANZapine 5 MG TABLET PO SCH (09:40)
[2024-04-16] MEDS: PALIPERIDONE PALMITATE 156 MG/ML SYRINGE IM ONE (10:04)
[2024-04-17 08:29] VITALS: BP 100/60; PULSE 76; RESP 18; TEMP 97.7; O2SAT 99
[2024-04-17 20:33] VITALS: BP 100/60; PULSE 63; RESP 17; TEMP 98; O2SAT 100
[2024-04-18 08:09] VITALS: RESP 16
[2024-04-18 20:00] VITALS: BP 90/54; PULSE 71; RESP 16; TEMP 97.7; O2SAT 97
[2024-04-19 08:44] VITALS: BP 99/57; PULSE 86; RESP 17; TEMP 98; O2SAT 100
[2024-04-19 20:38] VITALS: BP 100/63; PULSE 84; RESP 16; TEMP 97.9; O2SAT 100
[2024-04-20 08:48] VITALS: BP 100/63; PULSE 84; RESP 16; TEMP 97.7; O2SAT 97
[2024-04-20 20:02] VITALS: BP 101/64; PULSE 80; RESP 18; TEMP 98.1; O2SAT 100
[2024-04-21 08:08] VITALS: BP 103/62; PULSE 80; RESP 16; TEMP 97.8; O2SAT 97
== END 2024-04-21 12:01 | disposition home or self-care (01) | DRG 750 ==
LOC: EMS 09:55 → B3A 14:33 → B2S 04-10 10:35
PROVIDERS: ADMIT Psychiatry & Neurology Psychiatry; ATTEND Psychiatry & Neurology Psychiatry
PROC: GZ56ZZZ Individual Psychotherapy, Supportive (ICD-10-PCS; principal; 2024-04-12)
DX: F25.0 Schizoaffective disorder, bipolar type (principal); R45.851 Suicidal ideations; B19.20 Unspecified viral hepatitis C without hepatic coma; G47.00 Insomnia, unspecified; F41.9 Anxiety disorder, unspecified; K59.00 Constipation, unspecified; Z20.822 Contact with and (suspected) exposure to COVID-19; F19.10 Other psychoactive substance abuse, uncomplicated; E78.00 Pure hypercholesterolemia, unspecified; Z59.00 Homelessness unspecified; Z87.891 Personal history of nicotine dependence
CPT/HCPCS: 71046; 80048; 80061; 83036; 84439; 84443; 85025; 86592; 87081; 87340; 87481; 99285; G0480; 36415-L1; 36415-TC

== ENCOUNTER 2024-07-27 06:42 | Inpatient (IN) | payer MEDICAID, OTHER ==
[~2024-07-27] VITALS: Ht 170.2 cm; Wt 68.5 kg
[2024-07-27] MEDS ORDERED: GABA-1181 PO (07:24)
[2024-07-27] MEDS ORDERED: VALA500T34 PO (07:24)
[2024-07-27 08:14] LABS: COVID AG,FIA SOURCE NASAL SWAB
[2024-07-27 08:16] LABS: BASOPHILS % (AUTO) 0.3 % (0.0-2.0); EOSINOPHILS % (AUTO) 1.7 % (1.0-6.0); HEMATOCRIT 38.6 % (41-53); HEMOGLOBIN 13.1 g/dL (13.5-17.5); LYMPHOCYTES # (AUTO) 0.6 K/uL (1.0-4.8); LYMPHOCYTES % (AUTO) 10.3 % (22.0-44.0); MEAN CORPUSCULAR HEMOGLOBIN 29.3 pg (26.0-34.0); MEAN CORPUSCULAR HGB CONC 33.9 G/dL (31.0-37.0); MEAN CORPUSCULAR VOLUME 87 fL (80-100); MONOCYTES # (AUTO) 0.6 K/uL (0.1-1.0); MONOCYTES % (AUTO) 9.5 % (2.0-9.0); NEUTROPHILS # (AUTO) 4.6 K/uL (1.8-7.7); NEUTROPHILS % (AUTO) 78.2 % (40.0-70.0); PLATELET COUNT (AUTO) 281 K/uL (150-450); RED BLOOD CELL COUNT(AUTO) 4.46 MIL/uL (4.50-5.90); RED CELL DISTRIBUTION WIDTH 13.4 % (11.5-14.5); WHITE BLOOD COUNT (AUTO) 5.9 K/uL (4.5-11.0)
[2024-07-27 08:29] LABS: ANION GAP 9 mmol/L (8-16); CALCIUM, TOTAL 8.8 mg/dL (8.8-10.5); CARBON DIOXIDE 29 mmol/L (22-29); CHLORIDE 101 mmol/L (98-107); GLOMERULAR FILTR. RATE CALC > 60 mL/min (>60); GLUCOSE,RANDOM 96 mg/dL (70-110); POTASSIUM 3.7 mmol/L (3.5-5.1); SODIUM SERUM 139 mmol/L (136-145); UREA NITROGEN, BLOOD 11 mg/dL (7-18)
[2024-07-27 08:34] LABS: SARS-COV2 (COVID) ANTIGEN,FIA Negative (Negative)
[2024-07-27 08:34] LABS: ALCOHOL, BLOOD (SERUM) < 3 mg/dL (0-10)
[2024-07-27] MEDS: LORazepam 1 MG TABLET PO ONE (09:00)
[2024-07-27] MEDS: OLANZapine 10 MG TABLET PO ONE (09:00)
[2024-07-27] MEDS: ACETAMINOPHEN 500 MG TABLET PO ONE (10:15)
[2024-07-27] MEDS: LIDOCAINE 1% 10 ML VIAL SQ ONE (10:16)
[2024-07-27] MEDS: IBUPROFEN 600 MG TABLET PO ONE (10:16)
[2024-07-27] MEDS: BACITRACIN 0.9 GM PACKET OINTMENT TP ONE (10:16)
[2024-07-27] MEDS: PERTUSS(ACELL),DIPH,TET/PF 0.5 ML SYRINGE [ADULT] IM. ONE (10:17)
[2024-07-27] MEDS ORDERED: LORazepam 2 MG TABLET PO PRN (10:45)
[2024-07-27] MEDS ORDERED: HALOPERIDOL 5 MG TABLET PO PRN (10:45)
[2024-07-27] MEDS ORDERED: ZOLPIDEM TARTRATE 10 MG TABLET PO PRN (10:45)
[2024-07-27] MEDS ORDERED: BENZOCAINE/MENTHOL LOZENGE PO PRN (19:00)
[2024-07-27] MEDS ORDERED: ALBUTEROL SULFATE HFA 90 MCG/PUFF 8 GM INHALER IH PRN (19:00)
[2024-07-27] MEDS ORDERED: CloNIDine HCL 0.1 MG TABLET PO PRN ×2 (19:00→19:45)
[2024-07-27] MEDS ORDERED: IBUPROFEN 600 MG TABLET PO PRN ×2 (19:00→19:45)
[2024-07-27] MEDS ORDERED: DOCUSATE SODIUM 100 MG CAPSULE PO PRN (19:00)
[2024-07-27] MEDS ORDERED: PETROLATUM,WHITE 28 GM JELLY TP PRN (19:00)
[2024-07-27] MEDS ORDERED: ACETAMINOPHEN 325 MG TABLET PO PRN ×2 (19:00→19:45)
[2024-07-27] MEDS ORDERED: BACITRACIN 28 GM OINTMENT TP PRN (19:00)
[2024-07-27] MEDS ORDERED: OMEPRAZOLE 20 MG CAPSULE PO PRN (19:00)
[2024-07-27] MEDS ORDERED: LOPERAMIDE HCL 2 MG CAPSULE PO PRN ×2 (19:00→19:45)
[2024-07-27] MEDS ORDERED: MAG HYDROX/ALUMINUM HYD/SIMETH ES 30 ML SUSPENSION UDCUP PO PRN ×3 (19:00→19:45)
[2024-07-27] MEDS ORDERED: ONDANSETRON 4 MG TABLET PO PRN (19:00)
[2024-07-27] MEDS ORDERED: MAGNESIUM HYDROXIDE SUSPENSION 30 ML UDCUP PO PRN ×2 (19:00→19:45)
[2024-07-27] MEDS ORDERED: PROMETHAZINE HCL 25 MG TABLET PO PRN (19:45)
[2024-07-27] MEDS ORDERED: HydrOXYzine PAMOATE 50 MG CAPSULE PO PRN ×2 (19:45)
[2024-07-27] MEDS ORDERED: GuaiFENesin/D-METHORPHAN [SUGAR-FREE] 200-20MG/10 ML SYRUP UDCUP PO PRN (19:45)
[2024-07-27 21:23] VITALS: O2SAT 100
[2024-07-27 21:32] VITALS: BP 115/69; PULSE 96; RESP 18; TEMP 97.7; O2SAT 100
[2024-07-27 21:40] VITALS: BP 115/69; PULSE 96; RESP 18; TEMP 97.7; O2SAT 100
[2024-07-27 22:30] VITALS: BP 120/72; PULSE 92; RESP 18; TEMP 98; O2SAT 97
[2024-07-27 22:45] VITALS: BP 116/67; PULSE 98
[2024-07-27] MEDS: OLANZapine 5 MG RAPDIS TABLET PO SCH (22:48)
[2024-07-27] MEDS: MELATONIN 5 MG TABLET PO SCH (22:49)
[2024-07-27] MEDS: CloNIDine HCL 0.1 MG TABLET PO SCH (22:49)
[2024-07-27 23:30] VITALS: BP 114/73; PULSE 94; RESP 17; TEMP 97.8; O2SAT 98
[2024-07-28] VITALS (8 sets, daily range): BP systolic 106–124; BP diastolic 60–76; PULSE 69–97; RESP 17–19; TEMP 96.9–97.9; O2SAT 88–99
[2024-07-28 07:39] LABS: HEMOGLOBIN A1C 5.8 % (3.8-5.6)
[2024-07-28 07:43] LABS: FREE T4 (FREE THYROXINE) 0.99 ng/dL (0.76-1.46); THYROID STIMULATING HORMONE 2.42 uIU/mL (0.36-3.74)
[2024-07-28] MEDS: GABAPENTIN 300 MG CAPSULE PO SCH (10:26)
[2024-07-28] MEDS: FLUoxetine HCL 20 MG CAPSULE PO SCH (10:26)
[2024-07-28] MEDS: MULTIVITAMINS WITH MINERALS, THERAPEUTIC TABLET PO SCH (10:26)
[2024-07-28] MEDS: PALIPERIDONE PALMITATE 234 MG/1.5 ML SYRINGE IM ONE (10:27)
[2024-07-28] MEDS: THIAMINE 100 MG TABLET PO SCH (10:27)
[2024-07-28] MEDS: FOLIC ACID 1 MG TABLET PO SCH (10:27)
[2024-07-29] VITALS: BP 90/59; PULSE 78; RESP 18; TEMP 97.3; O2SAT 98
[2024-07-29 09:00] VITALS: BP 98/59; PULSE 86; RESP 18; TEMP 97; O2SAT 98
[2024-07-29] MEDS: ETHYL ALCOHOL 62% ANTISEPTIC NASAL SANITIZER 0.6 ML AMPUL NASAL SCH (09:07)
[2024-07-29 21:00] VITALS: BP 99/65; PULSE 90; RESP 17; TEMP 97.8
[2024-07-29 21:01] VITALS: BP 99/65; PULSE 90; RESP 18; TEMP 97.8
[2024-07-30 12:21] VITALS: BP 113/61; PULSE 78; RESP 18; TEMP 97.4; O2SAT 98
[2024-07-30 21:20] VITALS: RESP 18
[2024-07-31 10:39] VITALS: BP 103/65; PULSE 69; RESP 20; TEMP 97.8; O2SAT 97
[2024-07-31 21:32] VITALS: BP 116/65; PULSE 92; RESP 18; TEMP 98.3; O2SAT 98
[2024-08-01 08:15] VITALS: BP 112/63; PULSE 76; RESP 18; TEMP 96.8; O2SAT 97
[2024-08-01] MEDS ORDERED: PALIPERIDONE PALMITATE 156 MG/ML SYRINGE IM ONE (09:00)
[2024-08-01] MEDS ORDERED: GABA-1181 PO (19:11)
[2024-08-01] MEDS ORDERED: NALT50TA6 PO (19:11)
[2024-08-01] MEDS ORDERED: OLAN5TAB94 PO (19:11)
[2024-08-01] MEDS ORDERED: MELA5TAB40 PO (19:11)
[2024-08-01 20:30] VITALS: BP 113/67; PULSE 91; RESP 19; TEMP 98.6; O2SAT 100
[2024-08-02 08:25] VITALS: BP 100/52; PULSE 72; RESP 17; TEMP 98.1; O2SAT 98
[2024-08-02] MEDS: TUBERCULIN, PURIFIED PROTEIN DERIVATIVE 5 TU/0.1 ML SYRINGE ID ONE (13:10)
== END 2024-08-02 12:00 | disposition home or self-care (01) | DRG 750 ==
LOC: EMS 06:42 → 3EI 18:41
PROVIDERS: ADMIT Psychiatry & Neurology Psychiatry; ATTEND Psychiatry & Neurology Psychiatry
PROC: 0HQBXZZ Repair Right Upper Arm Skin, External Approach (ICD-10-PCS; 2024-07-27)
PROC: GZHZZZZ Group Psychotherapy (ICD-10-PCS; principal; 2024-07-28)
PROC: GZ58ZZZ Individual Psychotherapy, Cognitive-Behavioral (ICD-10-PCS; 2024-07-28)
DX: F25.9 Schizoaffective disorder, unspecified (principal); B19.20 Unspecified viral hepatitis C without hepatic coma; E78.00 Pure hypercholesterolemia, unspecified; F15.10 Other stimulant abuse, uncomplicated; F17.200 Nicotine dependence, unspecified, uncomplicated; J44.9 Chronic obstructive pulmonary disease, unspecified; F32.A Depression, unspecified; F41.9 Anxiety disorder, unspecified; G47.00 Insomnia, unspecified; Z20.822 Contact with and (suspected) exposure to COVID-19; S51.811A Laceration without foreign body of right forearm, initial encounter; Z55.9 Problems related to education and literacy, unspecified; Z56.0 Unemployment, unspecified; Z59.02 Unsheltered homelessness; Z63.9 Problem related to primary support group, unspecified; Z65.3 Problems related to other legal circumstances; Z91.199 Patient's noncompliance with other medical treatment and regimen due to unspecified reason; X58.XXXA Exposure to other specified factors, initial encounter; Y93.89 Activity, other specified; Y92.89 Other specified places as the place of occurrence of the external cause; Y99.8 Other external cause status; K59.00 Constipation, unspecified; F19.10 Other psychoactive substance abuse, uncomplicated
CPT/HCPCS: 80048; 80061; 83036; 84439; 84443; 85025; 86592; 87081; 90715; 99285; G0480; J3490